=== PATIENT | male | born 1945 | race Caucasian/White ===

== ENCOUNTER 2016-04-29 11:02 | Emergency (ER) | payer MEDICARE, OTHER ==
--- NOTE | 2016-04-29 11:09 | ER Document Report ---
ED Medical Screen (RME) - General Stated Complaint: POSSIBLE URINARY TRACK INFECTION Notes: 70 yo male with uretheral stricture. c/o urinary retention. last urinated 8pm. + bladder distention
[2016-04-29] MEDS ORDERED: ONDANSETRON HCL INJ/PF 4 MG/2 ML SDV IV ONE (12:04)
[2016-04-29] MEDS ORDERED: HYDROMORPHONE HCL INJ/PF 2 MG/ML AMPULE IV ONE (12:04)
--- NOTE | 2016-04-29 12:05 | ER Document Report ---
ED GI/ - General Chief Complaint: Urinary Problem Stated Complaint: POSSIBLE URINARY TRACK INFECTION Time seen by provider: 12:04 Mode of Arrival: Ambulatory Information source: Patient Notes: This is a 70-year-old man with a history of chronic kidney disease, coronary artery disease, COPD, recurrent urethral strictures. Patient states that he last urinated last evening and has not been able to pass any urine. TRAVEL OUTSIDE OF THE [place] IN LAST 30 DAYS: No - HPI Patient complains to provider of: Abdominal pain, Urinary retention Onset: Yesterday Timing/Duration: Gradual Quality of pain: Fullness, Pressure Severity at maximum: Moderate Severity in ED: Moderate Context: denies: Bad food, Lifting, Out of the country travel, , Recent trauma, Other Location: Suprapubic Sexual history: Inactive Associated symptoms: denies: Chills, Hematuria, Nausea, Syncope Exacerbated by: Denies Relieved by: Denies Similar symptoms previously: Yes Recently seen / treated by doctor: Yes Past Medical History - General Information source: Patient - Social History Smoking Status: Never Smoker Cigarette use (# per day): No Chew tobacco use (# tins/day): No Frequency of alcohol use: Occasional Drug Abuse: None Lives with: Spouse/Significant other Family History: Reviewed & Not Pertinent Patient has suicidal ideation: No Patient has homicidal ideation: No - Past Medical History Cardiac Medical History: Reports: Hx Coronary Artery Disease, Hx Hypercholesterolemia Pulmonary Medical History: Reports: Hx COPD EENT Medical History: Reports: None Neurological Medical History: Reports: None Endocrine Medical History: Reports: None Renal/ Medical History: Reports: Hx Renal Insufficiency - Running kidney disease, Other - Urethral strictures in the past.. Denies: Hx Peritoneal Dialysis Malignancy Medical History: Reports None GI Medical History: Reports: None Musculoskeltal Medical History: Reports None Skin Medical History: Reports None Psychiatric Medical History: Reports: None Traumatic Medical History: Reports: None Infectious Medical History: Reports: None Past Surgical History: Reports: Hx Genitourinary Surgery - Urethral stricture laser and dilatation in the past Review of Systems - Review of Systems Constitutional: denies: Chills, Fever EENT: No symptoms reported Cardiovascular: No symptoms reported Respiratory: No symptoms reported Gastrointestinal: No symptoms reported Genitourinary: See HPI Male Genitourinary: No symptoms reported Musculoskeletal: No symptoms reported Skin: No symptoms reported Hematologic/Lymphatic: No symptoms reported Neurological/Psychological: No symptoms reported Physical Exam - Vital signs Vitals: Temp Pulse Resp BP Pulse Ox 97.7 F 72 18 164/94 H 98 04/29/16 11:08 04/29/16 11:08 04/29/16 11:08 04/29/16 11:08 04/29/16 11:08 Notes: Physical exam: GENERAL: 70-year-old man, alert and oriented 3, no acute distress HEAD: Atraumatic, normocephalic. EYES: Pupils equal round and reactive to light, extraocular movements intact, sclera anicteric, conjunctiva are normal. ENT: Moist mucous membranes. NECK: Normal range of motion, supple LUNGS: Breath sounds clear to auscultation bilaterally and equal. No wheezes rales or rhonchi. HEART: Regular rate and rhythm without murmurs, rubs or gallops. ABDOMEN: Soft, nontender, normoactive bowel sounds. No guarding, no rebound. No masses appreciated. EXTREMITIES: Normal range of motion, no pitting or edema. No clubbing or cyanosis. NEUROLOGICAL: Cranial nerves II through XII grossly intact. Normal speech, moving all extremities. PSYCH: Normal mood, normal affect. SKIN: Warm, Dry, normal turgor, no rashes or lesions noted. Course - Re-evaluation Re-evalutation: 04/29/16 16:40 A Alvarez was placed by the tech successfully. Urine looks good and sent for study. Patient will be discharged with a leg bag. 04/29/16 19:50 - Vital Signs Vital signs: Temp Pulse Resp BP Pulse Ox 98.1 F 67 18 152/91 H 93 04/29/16 17:02 04/29/16 17:02 04/29/16 11:08 04/29/16 17:02 04/29/16 17:02 - Laboratory Result Diagrams: 04/29/16 12:25 04/29/16 12:25 Laboratory results interpreted by me: 04/29/16 04/29/16 04/29/16 12:25 12:25 14:00 RBC 5.64 H MCH 26.1 L RDW 16.8 H Lymphocytes % 11.3 L Carbon Dioxide 32 H BUN 30 H Creatinine 1.32 H Est GFR (Non-Af Amer) 53 L AST 75 H Urine Blood SMALL H Discharge - Discharge Clinical Impression: acute obstructive uropathy, Pre hypertension Condition: Stable Disposition: HOME, SELF-CARE Additional Instructions: Recommendations: Follow-up with urologist as planned on Wednesday in [place]. Any copy of today's labs with you when you go to that appointment Before you leave [facility], return to the emergency room if you have any problems: Pain, fever, any concerns he getting worse. Prescriptions: Hydromorphone HCl [Dilaudid 2 Mg Tablet] 2 mg PO Q6H PRN #20 tablet PRN Reason: for pain Forms: Elevated Blood Pressure
[2016-04-29] MEDS ORDERED: LIDOCAINE 2% URO-JET 5 ML KIT MM ONE (12:29)
[2016-04-29 12:52] LABS: ABSOLUTE EOSINOPHILS # (AUTO) 0.1 10^3/uL (0.0-0.6); ABSOLUTE LYMPHOCYTES (AUTO) 0.5 10^3/uL (0.5-4.7); ABSOLUTE MONOCYTES (AUTO) 0.6 10^3/uL (0.1-1.4); ABSOLUTE NEUT (AUTO) 3.4 10^3/uL (1.7-8.2); BASOPHILS % (AUTO) 0.7 % (0-2); EOSINOPHILS % (AUTO) 1.9 % (0-6); HEMATOCRIT 45.5 % (37.9-51.0); HEMOGLOBIN 14.7 g/dL (13.5-17.0); HGB HCT DIFFERENCE -1.4; LYMPHOCYTES % (AUTO) 11.3 % (13-45); MEAN CORPUSCULAR HEMOGLOBIN 26.1 pg (27.0-33.4); MEAN CORPUSCULAR HGB CONC 32.4 g/dL (32.0-36.0); MEAN CORPUSCULAR VOLUME 81 fl (80-97); MONOCYTES % (AUTO) 12.9 % (3-13); RED BLOOD COUNT 5.64 10^6/uL (4.35-5.55); RED CELL DISTRIBUTION WIDTH 16.8 % (11.5-14.0); SEGMENTED NEUTROPHILS % (AUTO) 73.2 % (42-78); WHITE BLOOD COUNT 4.6 10^3/uL (4.0-10.5)
[2016-04-29 13:00] LABS: ALANINE AMINOTRANSFERASE 40 U/L (21-72); ALBUMIN 4.4 g/dL (3.5-5.0); ALKALINE PHOSPHATASE 83 U/L (38-126); ANION GAP 10 (5-19); ASPARTATE AMINO TRANSFERASE 75 U/L (17-59); BLOOD UREA NITROGEN 30 mg/dL (7-20); CALCIUM 9.8 mg/dL (8.4-10.2); CARBON DIOXIDE 32 mmol/L (22-30); CHLORIDE 102 mmol/L (98-107); CREATININE RESULT 1.32 mg/dL (0.52-1.25); GLUCOSE 95 mg/dL (75-110)
[2016-04-29 14:27] LABS: APPEARANCE,URINE CLEAR; BILIRUBIN,URINE NEGATIVE (NEGATIVE); GLUCOSE, URINE NEGATIVE (NEGATIVE); KETONES,URINE NEGATIVE (NEGATIVE); LEUKOCYTE ESTERASE,URINE NEGATIVE (NEGATIVE); NITRITE,URINE NEGATIVE (NEGATIVE); PROTEIN,URINE NEGATIVE (NEGATIVE); URINE SPECIFIC GRAVITY 1.017; UROBILINOGEN,URINE NEGATIVE mg/dL (<2.0)
[2016-04-29 17:03] VITALS: BP 152/91
== END 2016-04-29 17:03 | disposition home or self-care (01) ==
LOC: ER 11:02
DX: N13.9 Obstructive and reflux uropathy, unspecified (principal); R03.0 Elevated blood-pressure reading, without diagnosis of hypertension; N18.9 Chronic kidney disease, unspecified; I25.10 Atherosclerotic heart disease of native coronary artery without angina pectoris; J44.9 Chronic obstructive pulmonary disease, unspecified; R39.198 Other difficulties with micturition
CPT/HCPCS: 99283; 51702; 96374; 96375; 36415; 87086; 85025; 80053; 81001; J1170; J2405; A9270; J3490

== ENCOUNTER 2017-02-10 14:35 | Emergency (ER) | payer MEDICARE, OTHER ==
[2017-02-10] MEDS ORDERED: HYDROCODONE/ACETAMINOPHEN 5-325 MG TABLET PO ONE (15:15)
--- NOTE | 2017-02-10 15:57 | RADIOLOGY REPORT (SQ) ---
EXAM DESCRIPTION: HIP RIGHT AP/LATERAL COMPLETED DATE/TIME: 02/10/2017 3:45 pm REASON FOR STUDY: pain COMPARISON: None. NUMBER OF VIEWS: Two views. TECHNIQUE: AP pelvis and additional frog-leg view of the right hip. LIMITATIONS: Artifact from drawstrings on the patient's sweat pants on the 1st film. FINDINGS: MINERALIZATION: Normal. RIGHT HIP: Right hip replacement. No fracture or dislocation. No worrisome bone lesions. LEFT HIP: No fracture or dislocation. No worrisome bone lesions. PUBIS AND ISCHIUM: No fracture. PELVIS: No fracture. SACRUM: No fracture or dislocation. No worrisome bone lesions. LOWER LUMBAR SPINE: Lower lumbar facet arthropathy at L4-5. SOFT TISSUES: Faintly radiopaque stent along the male urethra OTHER: No other significant finding. IMPRESSION: Right hip replacement in good alignment. No malalignment of the right hip prosthesis or fracture along the right hemipelvis. TECHNICAL DOCUMENTATION: JOB ID: [id number] [employer]- All Rights Reserved
--- NOTE | 2017-02-10 16:09 | ER Document Report ---
ED Fall - General Chief Complaint: Fall Stated Complaint: FALL/RIGHT SIDE HIP PAIN Time Seen by Provider: 02/10/17 15:13 Mode of Arrival: Ambulatory Information source: Patient Notes: Patient states that he fell yesterday and landed on his right hip. He states that he has persistent pain that is gotten worse today. It is worse with movement and better with rest. It does radiate down his right leg. He states it is a aching sharp pain. It is constant. It is moderate. Patient denies any other injuries in the fall. He states that he fell because his hip "gave out". He states he fell into a stone coffee table. He states he has had a hip replacement on the right previously. TRAVEL OUTSIDE OF THE [place] IN LAST 30 DAYS: No - Related data Allergies/Adverse Reactions: No Known Allergies Allergy (Verified 02/10/17 14:39) Past Medical History - Social History Smoking Status: Former Smoker Chew tobacco use (# tins/day): No Frequency of alcohol use: Occasional Drug Abuse: None Family History: Reviewed & Not Pertinent Patient has suicidal ideation: No Patient has homicidal ideation: No - Past Medical History Cardiac Medical History: Reports: Hx Congestive Heart Failure, Hx Coronary Artery Disease, Hx Hypercholesterolemia Pulmonary Medical History: Reports: Hx COPD Renal/ Medical History: Reports: Hx Renal Insufficiency - Running kidney disease. Denies: Hx Peritoneal Dialysis Past Surgical History: Reports: Hx Genitourinary Surgery - Urethral stricture laser and dilatation in the past, Hx Orthopedic Surgery - rt hip Review of Systems - Review of Systems Constitutional: denies: Chills, Fever Cardiovascular: denies: Chest pain, Palpitations Respiratory: denies: Cough, Short of breath Gastrointestinal: denies: Diarrhea, Vomiting -: Yes All other systems reviewed and negative Physical Exam - Vital signs Vitals: Temp Pulse Resp BP Pulse Ox 98.3 F 68 20 150/85 H 93 02/10/17 14:39 02/10/17 14:39 02/10/17 14:39 02/10/17 14:39 02/10/17 14:39 Interpretation: Normal - General General appearance: Appears well, Alert - HEENT Head: Normocephalic, Atraumatic Eyes: Normal Pupils: PERRL - Respiratory Respiratory status: No respiratory distress Chest status: Nontender Breath sounds: Normal Chest palpation: Normal - Cardiovascular Rhythm: Regular Heart sounds: Normal auscultation Murmur: No - Abdominal Inspection: Normal Distension: No distension Bowel sounds: Normal Tenderness: Nontender Organomegaly: No organomegaly - Back Back: Normal, Nontender - Extremities General upper extremity: Normal inspection, Nontender, Normal color, Normal ROM , Normal temperature General lower extremity: Normal inspection, Tender - right hip diffusely, Normal color, Normal temperature. No: Normal ROM, Normal weight bearing, Chasity' s sign - Neurological Neuro grossly intact: Yes Cognition: Normal Orientation: AAOx4 [place] Coma Scale Eye Opening: Spontaneous [place] Coma Scale Verbal: Oriented [place] Coma Scale Motor: Obeys Commands [place] Coma Scale Total: 15 Speech: Normal Motor strength normal: LUE, RUE, LLE, RLE Sensory: Normal - Psychological Associated symptoms: Normal affect, Normal mood - Skin Skin Temperature: Warm Skin Moisture: Dry Skin Color: Normal Course - Vital Signs Vital signs: Temp Pulse Resp BP Pulse Ox 98.3 F 68 20 150/85 H 93 02/10/17 14:39 02/10/17 14:39 02/10/17 14:39 02/10/17 14:39 02/10/17 14:39 - Diagnostic Test Radiology reviewed: Image reviewed, Reports reviewed - X-ray shows no evidence of fracture or dislocation. Discharge - Discharge Clinical Impression: Contusion of right hip Qualifiers: Encounter type: initial encounter Qualified Code(s): S70.01XA - Contusion of right hip, initial encounter Condition: Stable Disposition: HOME, SELF-CARE Instructions: Contusion ([facility]) Additional Instructions: Please call your primary care physician as soon as possible to arrange follow-up Prescriptions: Hydrocodone/Acetaminophen [Kittrell 5-325 mg Tablet] 1 tab PO Q6 PRN #14 tablet PRN Reason: Forms: Elevated Blood Pressure
[2017-02-10 16:25] VITALS: BP 123/76
== END 2017-02-10 16:14 | disposition home or self-care (01) ==
LOC: ER 14:35
DX: S70.01XA Contusion of right hip, initial encounter (principal); M25.551 Pain in right hip; W19.XXXA Unspecified fall, initial encounter; Z96.641 Presence of right artificial hip joint; I25.10 Atherosclerotic heart disease of native coronary artery without angina pectoris; J44.9 Chronic obstructive pulmonary disease, unspecified; Z87.891 Personal history of nicotine dependence
CPT/HCPCS: 99283; 73502; A9270

== ENCOUNTER 2017-05-09 10:42 | Inpatient (IN) | payer MEDICARE, OTHER ==
--- NOTE | 2017-05-09 10:56 | ER Document Report ---
ED Medical Screen (RME) - General Chief Complaint: Flu Symptoms Stated Complaint: FLU SYMPTOMS Time Seen by Provider: 05/09/17 10:54 Mode of Arrival: Ambulatory Information source: Patient TRAVEL OUTSIDE OF THE [place] IN LAST 30 DAYS: No - HPI Patient complains to provider of: cough Onset: Other - pt with flu symptoms for the past 10 days with cough, sob, fever , chills - Related Data Allergies/Adverse Reactions: No Known Allergies Allergy (Verified 02/10/17 14:39) Past Medical History - Past Medical History Cardiac Medical History: Reports: Hx Congestive Heart Failure, Hx Coronary Artery Disease, Hx Hypercholesterolemia Pulmonary Medical History: Reports: Hx COPD Renal/ Medical History: Reports: Hx Renal Insufficiency - Running kidney disease. Denies: Hx Peritoneal Dialysis Past Surgical History: Reports: Hx Genitourinary Surgery - Urethral stricture laser and dilatation in the past, Hx Orthopedic Surgery - rt hip Physical Exam - Vital signs Vitals: Temp Pulse Resp BP Pulse Ox 98.6 F 60 18 154/76 H 91 L 05/09/17 10:48 05/09/17 10:48 05/09/17 10:48 05/09/17 10:48 05/09/17 10:48 Course - Vital Signs Vital signs: Temp Pulse Resp BP Pulse Ox 98.6 F 60 18 154/76 H 91 L 05/09/17 10:48 05/09/17 10:48 05/09/17 10:48 05/09/17 10:48 05/09/17 10:48
[2017-05-09 11:41] LABS: ABSOLUTE EOSINOPHILS # (AUTO) 0.1 10^3/uL (0.0-0.6); ABSOLUTE LYMPHOCYTES (AUTO) 0.6 10^3/uL (0.5-4.7); ABSOLUTE MONOCYTES (AUTO) 0.5 10^3/uL (0.1-1.4); ABSOLUTE NEUT (AUTO) 3.6 10^3/uL (1.7-8.2); EOSINOPHILS % (AUTO) 1.5 % (0-6); HEMATOCRIT 48.2 % (37.9-51.0); HEMOGLOBIN 15.6 g/dL (13.5-17.0); LYMPHOCYTES % (AUTO) 13.3 % (13-45); MEAN CORPUSCULAR HEMOGLOBIN 27.8 pg (27.0-33.4); MEAN CORPUSCULAR HGB CONC 32.4 g/dL (32.0-36.0); MEAN CORPUSCULAR VOLUME 86 fl (80-97); PLATELET COUNT 190 10^3/uL (150-450); RED BLOOD COUNT 5.62 10^6/uL (4.35-5.55); RED CELL DISTRIBUTION WIDTH 15.1 % (11.5-14.0); SEGMENTED NEUTROPHILS % (AUTO) 74.2 % (42-78); TOTAL CELLS COUNTED % (AUTO) 100 %; WHITE BLOOD COUNT 4.8 10^3/uL (4.0-10.5)
--- NOTE | 2017-05-09 12:02 | RADIOLOGY REPORT (SQ) ---
EXAM DESCRIPTION: CHEST PA/LAT COMPLETED DATE/TIME: 05/09/2017 11:44 am REASON FOR STUDY: cough COMPARISON: None. EXAM PARAMETERS: NUMBER OF VIEWS: two views TECHNIQUE: Digital Frontal and Lateral radiographic views of the chest acquired. RADIATION DOSE: NA LIMITATIONS: none FINDINGS: LUNGS AND PLEURA: Probable chronic interstitial changes. No focal infiltrates, masses or pneumothorax. No pleural effusion. MEDIASTINUM AND HILAR STRUCTURES: No masses or contour abnormalities. HEART AND VASCULAR STRUCTURES: Heart upper limits of normal size. No evidence for failure. BONES: Mild wedge deformity of a thoracolumbar vertebra, age indeterminate. HARDWARE: Pacemaker. OTHER: No other significant finding. IMPRESSION: NO SIGNIFICANT RADIOGRAPHIC FINDING IN THE CHEST. MILD WEDGE DEFORMITY OF THE THORACOLU MBAR VERTEBRA, AGE INDETERMINATE. TECHNICAL DOCUMENTATION: JOB ID: [id number] [employer]- All Rights Reserved
[2017-05-09 12:03] LABS: ALANINE AMINOTRANSFERASE 21 U/L (21-72); ALBUMIN 4.4 g/dL (3.5-5.0); ALKALINE PHOSPHATASE 41 U/L (38-126); ASPARTATE AMINO TRANSFERASE 22 U/L (17-59); BILIRUBIN,DIRECT 0.2 mg/dL (0.0-0.4); BILIRUBIN,TOTAL 0.5 mg/dL (0.2-1.3); BLOOD UREA NITROGEN 22 mg/dL (7-20); CHLORIDE 93 mmol/L (98-107); GLUCOSE 113 mg/dL (75-110); TOTAL PROTEIN 6.9 g/dL (6.3-8.2)
[2017-05-09 12:07] LABS: ANION GAP 9 (5-19)
[2017-05-09 12:11] LABS: CARBON DIOXIDE 40 mmol/L (22-30)
--- NOTE | 2017-05-09 12:56 | ER Document Report ---
ED Respiratory Problem - General Chief Complaint: Flu Symptoms Stated Complaint: FLU SYMPTOMS Time Seen by Provider: 05/09/17 10:54 Mode of Arrival: Ambulatory Notes: Patient is here concerned about difficulty breathing. He says that he has been feeling short of breath for the past week or 2 since she developed an upper respiratory infection about 2 weeks ago. He has had a persistent cough for a couple of weeks, producing only a small amount of phlegm. His difficulty breathing is worsened by activity or when laying down. Patient is not aware of any fever. He does have COPD and has an inhaler at home but is not using it, for some unknown reason. He stopped smoking 20 years ago. Has a cardiac pacemaker and is having no chest pains. No peripheral edema. Patient is concerned about whether he should be able to travel to [place] on Wednesday, 2 days from now, as scheduled. TRAVEL OUTSIDE OF THE [place] IN LAST 30 DAYS: No - Related Data Allergies/Adverse Reactions: No Known Allergies Allergy (Verified 02/10/17 14:39) Past Medical History - General Information source: Patient - Social History Smoking Status: Former Smoker Chew tobacco use (# tins/day): No Frequency of alcohol use: Occasional Drug Abuse: None Family History: Reviewed & Not Pertinent Patient has suicidal ideation: No Patient has homicidal ideation: No - Past Medical History Cardiac Medical History: Reports: Hx Congestive Heart Failure, Hx Coronary Artery Disease, Hx Heart Attack, Hx Hypercholesterolemia, Other - Coronary stents Pulmonary Medical History: Reports: Hx COPD Renal/ Medical History: Reports: Hx Renal Insufficiency - Running kidney disease GI Medical History: Reports: Hx Gastroesophageal Reflux Disease Past Surgical History: Reports: Hx Genitourinary Surgery - Urethral stricture laser and dilatation in the past, Hx Orthopedic Surgery - rt hip Review of Systems - Review of Systems Notes: REVIEW OF SYSTEMS: CONSTITUTIONAL : Denies fever. EENT: Denies eye, ear, nose or mouth or throat pain or other symptoms. CARDIOVASCULAR: Denies chest pain. No edema of the lower extremities. RESPIRATORY: See HPI. GASTROINTESTINAL: Denies abdominal pain or nausea, vomiting, or diarrhea. GENITOURINARY: Denies difficulty or painful urinating, urinary frequency, blood in urine. MUSCULOSKELETAL: Denies back or neck pain. Denies joint pain or swelling. SKIN: Denies rash or skin lesions. NEUROLOGICAL: Denies LOC or altered mental status. Denies headache. Denies sensory loss or motor deficits. ALL OTHER SYSTEMS REVIEWED AND NEGATIVE. Physical Exam - Vital signs Vitals: Temp Pulse Resp BP Pulse Ox 98.6 F 60 18 154/76 H 91 L 05/09/17 10:48 05/09/17 10:48 05/09/17 10:48 05/09/17 10:48 05/09/17 10:48 Interpretation: Other - O2 sat 91% in triage on room air. - Notes Notes: PHYSICAL EXAMINATION: GENERAL: Well-appearing, in no acute distress. Except for an O2 sat of 91% on room air, triage vital signs are all normal. HEAD: Atraumatic, normocephalic. EYES: Pupils equal round and reactive to light, extraocular movements intact. ENT: oropharynx clear without exudates. Moist mucous membranes. NECK: Normal range of motion, supple. LUNGS: Breath sounds clear except for a rare scattered wheeze. HEART: Regular rate and rhythm without murmurs. ABDOMEN: Soft, nontender. No guarding or rebound. No masses. BACK: No tenderness throughout entire back. EXTREMITIES: Normal range of motion without pain. No edema present. NEUROLOGICAL: Normal speech, normal gait. Normal sensory, motor, and reflex exams. Awake, alert, and oriented x3. Cranial nerves normal. PSYCH: Normal mood, normal affect. SKIN: Warm, dry, no rashes. Course - Re-evaluation Re-evalutation: 05/09/17 13:56 Lab studies found patient to have a venous PCO2 of 79.9. Chest x-ray shows no acute processes. CT scan of the patient's chest showed no evidence of pulmonary emboli. CT scan did show a perhaps mass in the left kidney that needs further workup with CT scans with oral and IV contrast and I have informed the patient of this and provided him with a copy of his CT scan results so that he will know what needs to be followed up. Patient will be admitted for COPD exacerbation, hypoxia, and hypercarbia. BiPAP has been ordered. - Vital Signs Vital signs: Temp Pulse Resp BP Pulse Ox 98.6 F 60 20 112/76 91 L 05/09/17 10:48 05/09/17 10:48 05/09/17 19:00 05/09/17 18:27 05/09/17 19:00 - Laboratory Result Diagrams: 05/09/17 11:20 05/09/17 11:20 Laboratory results interpreted by me: 05/09/17 05/09/17 05/09/17 11:20 11:20 11:20 RBC 5.62 H RDW 15.1 H VBG pCO2 VBG HCO3 Chloride 93 L Carbon Dioxide 40 H* BUN 22 H Est GFR (Non-Af Amer) 58 L Glucose 113 H NT-Pro-B Natriuret Pep 2630 H 05/09/17 12:56 RBC RDW VBG pCO2 79.9 H* VBG HCO3 41.0 H Chloride Carbon Dioxide BUN Est GFR (Non-Af Amer) Glucose NT-Pro-B Natriuret Pep - Diagnostic Test Radiology reviewed: Image reviewed Radiology results interpreted by me: 05/09/17 13:00 Chest x-ray shows no acute process. Pacemaker in the right lung field. Critical Care Note - Critical Care Note Total time excluding time spent on procedures (mins): 35 Discharge - Discharge Clinical Impression: COPD (chronic obstructive pulmonary disease), Hypoxia, Hypercarbia Condition: Stable Disposition: ADMITTED INPATIENT Admitting Provider: Hospitalist Unit Admitted: IMCU
[2017-05-09] MEDS ORDERED: IPRATROPIUM/ALBUTEROL 0.5-2.5 MG/3 ML AMPUL NEB ONE (13:01)
[2017-05-09 13:08] LABS: VENOUS BLOOD PH 7.33 (7.30-7.42)
[2017-05-09 13:12] LABS: VENOUS BLOOD PCO2 79.9 mmHg (35-63)
--- NOTE | 2017-05-09 13:29 | RADIOLOGY REPORT (SQ) ---
EXAM DESCRIPTION: CTA CHEST COMPLETED DATE/TIME: 05/09/2017 1:16 pm REASON FOR STUDY: Shortness of breath COMPARISON: Chest x-ray dated 05/09/2017. TECHNIQUE: CT scan of the chest performed using helical scanning technique with dynamic intravenous contrast injection. Images reviewed with lung, soft tissue and bone windows. Reconstructed coronal and sagittal MPR images reviewed. Additional 3 dimensional post-processing performed to develop Maximal Intensity Projection images (RI P). All images stored on PACS. All CT scanners at this facility use dose modulation, iterative reconstruction, and/or weight based d osing when appropriate to reduce radiation dose to as low as reasonably achievable (ALARA). [facility]: Dose Right [facility]: CareDose [facility]: Dose Right [facility]: Teradose 4D [facility]: Vendor Registry CONTRAST TYPE AND DOSE: contrast/concentration: Isovue 370.00 mg/ml; Total Contrast Delivered: 82.0 ml; Total Saline Delivered: 97.0 ml Contrast bolus optimized for the pulmonary arteries. Not diagnostic for the aorta. RENAL FUNCTION: BUN 22 creatinine 1.23. RADIATION DOSE: CT Rad equipment meets quality standard of care and radiation dose reduction techniq ues were employed. CTDIvol: 29.8 - 32.9 mGy. DLP: 1256 mGy-cm. . LIMITATIONS: None. FINDINGS: LUNGS AND PLEURA: No masses, infiltrates, pneumothorax. No pleural effusions, calcificati ons. AORTA AND GREAT VESSELS: No aneurysm. Contrast bolus not optimized for the aorta. HEART: No pericardial effusion. No significant coronary artery calcifications. PULMONARY ARTERIES: No emboli visualized in the main pulmonary arteries or the segmental branches. HILAR AND MEDIASTINAL STRUCTURES: No identified masses or abnormal nodes. HARDWARE: None in the chest. UPPER ABDOMEN: Possible enhancing solid mass in the left kidney, measuring 4 cm, incompletely visuali zed. Limited exam. THYROID AND OTHER SOFT TISSUES: No masses. No adenopathy. BONES: Chronic changes in the spine. Wedge deformity of the superior endplate of T12 which appears b e old. 3D MIPS: Confirm above findings. OTHER: No other significant finding. IMPRESSION: 1. NORMAL CTA OF THE CHEST. NO PULMONARY EMBOLI. 2. POSSIBLE ENHANCING SOLID MASS IN THE LEFT KIDNEY, INCOMPLETELY VISUALIZED. RECOMMEND FOLLOWUP CT OF THE ABDOMEN AND PELVIS WITH AND WITHOUT CONTRAST WITH ATTENTION TO THE KIDNEYS. COMMENT: Quality ID # [id number]: Final reports with documentation of one or more dose reduction techniques (e.g., Automated exposure control, adjustment of the mA and/or kV according to patient size, use of iterative reconstruction technique) TECHNICAL DOCUMENTATION: JOB ID: [id number] [employer]- All Rights Reserved
[2017-05-09] MEDS ORDERED: ALBUTEROL SULFATE 0.083% NEB 2.5 MG/3 ML AMPUL NEB PRN (14:45)
[2017-05-09] MEDS ORDERED: ONDANSETRON 4 MG TAB.RAPDIS PO PRN (14:45)
[2017-05-09 15:33] LABS: ARTERIAL BLOOD BASE EXCESS 8.4 mmol/L; ARTERIAL BLOOD FIO2 30%; ARTERIAL BLOOD H2CO3 2.28 mmol/L (1.05-1.35); ARTERIAL BLOOD O2 SATURATION 95.1 % (94-98); ARTERIAL BLOOD PH 7.32 (7.35-7.45); ARTERIAL BLOOD PO2 84.3 mmHg (80-100); ARTERIAL BLOOD TOTAL CO2 40.3 mmol/L (23-27)
[2017-05-09 15:35] LABS: ARTERIAL BLOOD PCO2 75.6 mmHg (35-45)
[2017-05-09] MEDS ORDERED: NITROGLYCERIN 0.4 MG/TAB 25 TAB/BOTTLE SL PRN (16:50)
[2017-05-09 17:42] LABS: VENOUS BLOOD BASE EXCESS 10.6 mmol/L; VENOUS BLOOD HCO3 41.8 mmol/L (20-32); VENOUS BLOOD PH 7.29 (7.30-7.42)
[2017-05-09 17:45] LABS: VENOUS BLOOD PCO2 89.3 mmHg (35-63)
[2017-05-09] MEDS ORDERED: DOCUSATE SODIUM 100 MG CAPSULE PO SCH (18:00)
[2017-05-09] MEDS: METHYLPREDNISOLONE INJ 40 MG/1 ML SDV IV SCH (18:03)
[2017-05-09] MEDS: DOCUSATE SODIUM 100 MG CAPSULE PO SCH (18:04)
[2017-05-09] MEDS: APIXABAN 5 MG TABLET PO SCH (18:23)
[2017-05-09] MEDS: ACETAMINOPHEN 325 MG TABLET PO PRN (19:40)
--- NOTE | 2017-05-09 20:09 | HISTORY AND PHYSICAL E ---
History and Physical NAME: ALEX MALLORY : 1945 AGE: 71Y ADMITTED: 05/09/2017 ROOM: ED17 CODE STATUS: DO NOT RESUSCITATE/DO NOT INTUBATE. PRIMARY CARE PROVIDER: In [place]. 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 TANK CAR CLEANER: In [place]. CHIEF COMPLAINT: Shortness of breath x2 weeks. HISTORY OF PRESENT ILLNESS: The patient is a 71-year-old male with a past medical history of coronary artery disease and chronic obstructive pulmonary disease. The patient presented to the Emergency Department with a chief complaint of significant shortness of breath. According to the patient, he does have chronic dyspnea with activity. However, his symptoms have been progressively worse over the past 2 weeks with wheezing. The patient denies any chest pain. No heart palpitations or diaphoresis. The patient has been producing significant amount of sputum as well as having a runny nose. The patient denies any fevers but does admit to some chills and has had a productive cough. The patient stated that he felt that he also had a postnasal drip which was aggravating his symptoms. Upon presentation to the emergency department, the patient was found to be significantly hypercapnic with a pCO2 in the 70s but the patient was awake and alert, completely oriented, and appropriate. Additionally, the patient was found to be hypoxic. The patient was placed on the BiPAP by ED staff, was given a nebulizer and became more comfortable. However, the patient was referred to the hospitalist for admission and management due to hypercapnia. the patient was referred to the hospitalist for admission and management. PAST MEDICAL HISTORY: Remarkable for: 1. Coronary artery disease. 2. Chronic anticoagulation which is believed to be due to atrial fibrillation. 3. Chronic obstructive pulmonary disease. 4. Hypertension. 5. Hyperlipidemia. 6. Congestive heart failure, unable to further specify. 7. Myocardial infarction x3. 8. Chronic kidney disease, uncertain of stage. 9. Gastroesophageal reflux disease. PAST SURGICAL HISTORY: Remarkable for: 1. Coronary stent placement. 2. Urethral stricture surgery as well as dilation. 3. Right hip surgery. ALLERGIES: No known drug allergies. HOME MEDICATIONS: Include: 1. Ventolin HFA 2 puffs ventilation q. 6 hours p.r.n. 2. Eliquis 5 mg p.o. b.i.d. 3. Aspirin 325 mg p.o. daily. 4. Klonopin 1 mg p.o. q. hour of sleep. 5. Colace 100 mg p.o. b.i.d. 6. Nexium 40 mg p.o. daily. 7. Zetia 10 mg p.o. daily. 8. Tricor 145 mg p.o. daily. 9. Folic acid 1 mg p.o. daily. 10. Imdur 30 mg p.o. daily. 11. Lopressor 25 mg p.o. b.i.d. 12. Nitrostat 0.4 mg sublingually q. 5 minutes p.r.n. 13. Restoril 30 mg p.o. q. hour of sleep. SOCIAL HISTORY: The patient lives most of the time in [place]. However, he stays some in the winter with his girlfriend, Magdalena Still who may be reached at [phone]. He has designated her as a contact agent. Declines discussing surrogate decision maker with his children at this time. The patient does have a history of tobacco use. The patient smoked 2 packs of cigarettes a day up until 1998. The patient does admit to daily alcohol use. He drinks about 2 drinks in the afternoon every day. Denies any history of DTs. No history of illicit drug use. The patient is retired. No history of tobacco, alcohol, or illicit drug use. FAMILY MEDICAL HISTORY: The patient's parents are , uncertain etiology. The patient does have children who are believed to be healthy. Denies any family history of lung cancer. REVIEW OF SYSTEMS: CONSTITUTIONAL: The patient denies any fevers, dizziness, weakness, loss of appetite. Does admit to chills. SKIN: The patient denies any diaphoresis, rashes, bruising, itching. HEENT: Denies any vision changes, hearing loss, sore throat, but does admit to nasal drainage. CARDIOVASCULAR: The patient denies any chest pain, heart palpitations or orthopnea. RESPIRATORY: The patient denies any hemoptysis but does admit to sputum production, strong cough, wheezing. ABDOMEN: The patient denies any nausea, vomiting, diarrhea, hematemesis, melena, hematochezia. GENITOURINARY: The patient denies any hematuria, pyuria, dysuria. MUSCULOSKELETAL: The patient does have chronic hip pain, nothing acute. NEUROLOGICAL: No seizures, tremors, loss of consciousness. HEMATOLOGICAL: Denies any charbel bleeding, easy bruising. ENDOCRINE: Denies any recent weight changes. PSYCHIATRIC: Denies any suicidal, homicidal ideation. PHYSICAL EXAMINATION: GENERAL: The patient is a well-developed, well-nourished, 71-year-old male who is awake, alert, and oriented to person, place, time, situation. He is verbal, conversational, does not appear to be in any acute distress. VITAL SIGNS: As follows: Temperature is 98.6, pulse 60, respirations 17, blood pressure 125/81, oxygen saturation is 93% on 30% FiO2 on BiPAP. SKIN: Warm and dry. No rash. He is not diaphoretic. HEENT: Pupils equal, round, reactive to light and accommodation. Conjunctiva is pink. Sclerae is nonicteric. NECK: There is no JVD. No palpable lymphadenopathy or thyromegaly. CARDIOVASCULAR: Heart is paced, pacemaker in situ. No rub. CHEST: The patient is quite diminished throughout to auscultation with scattered wheezes noted in upper lung cancino, symmetrical, not currently labored. ABDOMEN: Soft, nontender, nondistended. Bowel sounds are present. No palpable organomegaly. BACK: No CVA tenderness, sacral edema. EXTREMITIES: No clubbing, cyanosis, edema, or peripheral signs of embolization. Pedal pulses +1 noted bilaterally. All 4 extremities are warm appropriately. PSYCHIATRIC: Appropriate affect. Pleasant mood. DIAGNOSTICS: Lab values are as follows: Hematology obtained on 05/09/2017; WBCs are 4.8; hemoglobin is 15.6; hematocrit is 48.2; platelet count is 190,000. Venous blood gas obtained on 05/09/2017: A pH of 7.33, pCO2 of 79.9, bicarb is 41, obtained on 30% FiO2. Chemistry obtained on 05/09/2017: Sodium is 142, potassium 5.0, chloride is 93, carbon dioxide 40, BUN 22, creatinine is 1.23, glucose 113, calcium is 10, bilirubin 0.5, AST 22, ALT is 21, alk phos 41. Troponin is 0.0 to 2. BNP is 2630. Total protein is 2.9, albumin 4.4. EKG obtained on 05/09/2017 revealed atrial-paced rhythm. Chest x-ray obtained on 05/09/2017 reveals no significant radiographic finding in the chest, mild wedge deformity of the thoracolumbar vertebrae. Chest CTA obtained on 05/09/[address] of the chest and pulmonary emboli with possible enhanced and solid mass of the left kidney, incompletely visualized. IMPRESSION AND PLAN: 1. Acute most likely on chronic hypoxemic and hypercapnic respiratory failure. The patient will start on BiPAP of 10/5. Will increase this to 12/6, repeat blood gas in 1 hour, and make adjustments accordingly. The patient's mental status is at baseline and he is hemodynamically stable. Do feel this is a chronic illness for him. Will follow. 2. Chronic obstructive pulmonary disease exacerbation. Do hear some wheezing, therefore will go ahead and add steroids, nebulizers; will use these sparingly given the patient's underlying atrial issues; and will follow. 3. Coronary artery disease. Given the patient's worsening of symptoms, especially his increased activity intolerance, will obtain echocardiogram. The patient denies any other cardiac symptoms. Will resume the patient's home blood pressure medications. The patient does have a history of stent placement. Will resume his antiplatelet therapy once reconcilable. 4. Chronic anticoagulation. The patient is uncertain of the exact history but it sounds as though he has had a history of atrial fibrillation. The patient has no evidence of overt bleeding is acceptable. Will continue his Eliquis. 5. Hypertension. Blood pressures are slightly elevated. Once again, will continue the patient's home medications. 6. Chronic kidney disease. The patient is uncertain of the stage. The patient's creatinine is in acceptable range at this time. DISPOSITION: The patient is a DO NOT RESUSCITATE/DO NOT INTUBATE. As the patient has expressed the desire for a natural . He does not want intubation or CPR. This was discussed in layman's terms. The patient was familiar with the verbiage and therefore, felt that this had been discussed prior as well. Will admit the patient to inpatient IMCU, as the patient's expected length of stay should surpass 2 midnights. TIME SPENT: On this admission including assessment, plan, physical examination, patient education, review of previous records is 60 minutes. DICTATING PHYSICIAN: DIONISIO PIPER NP [id number] [address] [facility]#: [id number] ID: [id number] JOB#: [id number] ACCT: [id number] cc:DIONISIO PIPER NP > SANA
--- NOTE | 2017-05-09 20:42 | EKG REPORT ---
SEVERITY:- ABNORMAL ECG - ATRIAL-PACED COMPLEXES LEFT BUNDLE BRANCH BLOCK WITH PRIMARY T WAVE CHANGES. CONSIDER ISCHEMIA : Confirmed by: Kris Medina 09-May-2017 20:42:07
[2017-05-09] MEDS ORDERED: CLONAZEPAM 1 MG TABLET PO SCH (22:00)
[2017-05-09] MEDS ORDERED: HEPARIN SOD (PORCINE) 5,000 UNIT/ML 1 ML SYRINGE SUBCUT SCH (22:00)
[2017-05-09] MEDS ORDERED: TEMAZEPAM 15 MG CAPSULE PO SCH (22:00)
[2017-05-09] MEDS: METOPROLOL TARTRATE 25 MG TABLET PO SCH (22:49)
[2017-05-10] MEDS: METHYLPREDNISOLONE INJ 40 MG/1 ML SDV IV SCH ×3 (02:16→17:52)
[2017-05-10] MEDS: LANSOPRAZOLE 30 MG TAB.RAP.DR PO SCH (06:33)
[2017-05-10] MEDS: ACETAMINOPHEN 325 MG TABLET PO PRN (06:35)
[2017-05-10 06:38] LABS: VENOUS BLOOD BASE EXCESS 12.1 mmol/L; VENOUS BLOOD HCO3 43.8 mmol/L (20-32); VENOUS BLOOD PH 7.31 (7.30-7.42)
[2017-05-10 06:40] LABS: HEMATOCRIT 51.5 % (37.9-51.0); HEMOGLOBIN 16.4 g/dL (13.5-17.0); MEAN CORPUSCULAR HEMOGLOBIN 27.3 pg (27.0-33.4); MEAN CORPUSCULAR HGB CONC 31.9 g/dL (32.0-36.0); MEAN CORPUSCULAR VOLUME 86 fl (80-97); PLATELET COUNT 186 10^3/uL (150-450); WHITE BLOOD COUNT 4.8 10^3/uL (4.0-10.5)
[2017-05-10 06:41] LABS: VENOUS BLOOD PCO2 89.6 mmHg (35-63)
[2017-05-10 07:02] LABS: ANION GAP 9 (5-19); BLOOD UREA NITROGEN 23 mg/dL (7-20); CARBON DIOXIDE 38 mmol/L (22-30); CHLORIDE 94 mmol/L (98-107); GLUCOSE 136 mg/dL (75-110); POTASSIUM 5.3 mmol/L (3.6-5.0); SODIUM 140.8 mmol/L (137-145)
[2017-05-10] MEDS: LEVALBUTEROL HCL NEB 1.25 MG/3 ML AMPUL NEB PRN ×2 (09:20→20:50)
[2017-05-10] MEDS: ISOSORBIDE MONONITRATE 30 MG TAB.ER.24H PO SCH (09:30)
[2017-05-10] MEDS: FOLIC ACID 1 MG TABLET PO SCH (09:30)
[2017-05-10] MEDS: ASPIRIN 81 MG TABLET, CHEWABLE PO SCH (09:31)
[2017-05-10] MEDS: DOCUSATE SODIUM 100 MG CAPSULE PO SCH ×2 (09:32→17:52)
[2017-05-10] MEDS: METOPROLOL TARTRATE 25 MG TABLET PO SCH ×2 (09:33→22:00)
[2017-05-10] MEDS: APIXABAN 5 MG TABLET PO SCH ×2 (09:34→17:51)
[2017-05-10] MEDS ORDERED: FENOFIBRATE NANOCRYSTALLIZED 145 MG TABLET PO SCH (10:00)
[2017-05-10] MEDS ORDERED: (PENDING PHARMACY ID) (Esomeprazole Mag Trihydrate [Nexium] 40 MG) PO SCH (10:00)
[2017-05-10] MEDS ORDERED: EZETIMIBE 10 MG TABLET PO SCH (10:00)
--- NOTE | 2017-05-10 10:32 | PDOC PROGRESS REPORT ---
Subjective Progress Note for:: 05/10/17 Subjective:: Patient is a 71-year-old male who presents with 2 weeks of increasing shortness of breath, orthopnea and PND. He has never been diagnosed with underlying COPD or obstructive sleep apnea. Last night, he was treated on BiPAP and states that he got the best night of sleep in a long time. He also has underlying hypertension, chronic kidney disease, coronary artery disease and he uses Eliquis for anticoagulation, presumably for A. fib. Reason For Visit: COPD EXACERBATION Physical Exam Vital Signs: Temp Pulse Resp BP Pulse Ox 98.0 F 69 18 150/80 H 97 05/10/17 07:01 05/10/17 09:30 05/10/17 09:30 05/10/17 07:01 05/10/17 09:30 Intake & Output 05/09/17 05/10/17 05/11/17 06:59 06:59 06:59 Intake Total 240 Output Total 1100 Balance -860 Weight 109.4 kg Additional comments: The patient appears to be his stated age. He is obese. He is conversant. He answers all of my questions appropriately. He knows his medical problems. He knows who his doctors are. He knows today's date. He knows who the president is. He is clearly competent to make his own decisions. His facial appearance demonstrates an increased diameter of his neck to approximately 19-20 inches. His facial appearance is otherwise unremarkable. The patient has diminished breath sounds throughout without adventitious sounds. His cardiac exam at this time is regular without murmurs, gallops or rubs. The abdomen is obese but soft. Bowel sounds are present in the lower quadrants. The lower extremities demonstrate trace edema. The skin is otherwise warm, dry and intact without lesions or rashes. Results Laboratory Results: 05/10/17 06:19 05/10/17 06:19 05/09/17 05/09/17 05/10/17 15:05 17:05 06:19 WBC RBC Hgb Hct MCV MCH MCHC RDW Plt Count Carbonic Acid 2.28 H HCO3/H2CO3 Ratio 16:1 ABG pH 7.32 L ABG pCO2 75.6 H* ABG pO2 84.3 ABG HCO3 38.0 H ABG O2 Saturation 95.1 ABG Base Excess 8.4 VBG pH 7.29 L 7.31 VBG pCO2 89.3 H* 89.6 H* VBG HCO3 41.8 H 43.8 H VBG Base Excess 10.6 12.1 FiO2 30% Sodium Potassium Chloride Carbon Dioxide Anion Gap BUN Creatinine Est GFR ( Amer) Est GFR (Non-Af Amer) Glucose Calcium Magnesium 05/10/17 05/10/17 06:19 06:19 WBC 4.8 RBC 6.00 H Hgb 16.4 Hct 51.5 H MCV 86 MCH 27.3 MCHC 31.9 L RDW 15.0 H Plt Count 186 Carbonic Acid HCO3/H2CO3 Ratio ABG pH ABG pCO2 ABG pO2 ABG HCO3 ABG O2 Saturation ABG Base Excess VBG pH VBG pCO2 VBG HCO3 VBG Base Excess FiO2 Sodium 140.8 Potassium 5.3 H Chloride 94 L Carbon Dioxide 38 H Anion Gap 9 BUN 23 H Creatinine 1.17 Est GFR ( Amer) > 60 Est GFR (Non-Af Amer) > 60 Glucose 136 H Calcium 10.0 Magnesium 1.7 Impressions: Chest X-Ray 05/09/17 10:54 IMPRESSION: NO SIGNIFICANT RADIOGRAPHIC FINDING IN THE CHEST. MILD WEDGE DEFORMITY OF THE THORACOLUMBAR VERTEBRA, AGE INDETERMINATE. Chest/Abdomen CTA 05/09/17 12:36 IMPRESSION: 1. NORMAL CTA OF THE CHEST. NO PULMONARY EMBOLI. 2. POSSIBLE ENHANCING SOLID MASS IN THE LEFT KIDNEY, INCOMPLETELY VISUALIZED. RECOMMEND FOLLOWUP CT OF THE ABDOMEN AND PELVIS WITH AND WITHOUT CONTRAST WITH ATTENTION TO THE KIDNEYS. Assessment & Plan - Diagnosis (1) Acute on chronic respiratory failure with hypoxia and hypercapnia Is this a current diagnosis for this admission?: Yes (2) COPD with exacerbation Is this a current diagnosis for this admission?: Yes (3) Coronary artery disease Is this a current diagnosis for this admission?: Yes (4) Chronic anticoagulation Is this a current diagnosis for this admission?: Yes (5) Hypertension Is this a current diagnosis for this admission?: Yes (6) Chronic kidney disease Is this a current diagnosis for this admission?: Yes (7) Obstructive sleep apnea Is this a current diagnosis for this admission?: Yes (8) Hyperkalemia Is this a current diagnosis for this admission?: Yes (9) Polycythemia Is this a current diagnosis for this admission?: Yes (10) Renal mass Is this a current diagnosis for this admission?: Yes - Time Time Spent with patient: 25-34 minutes - Inpatient Certification Medical Necessity: Significant Comorbidiites Make Outpatient Treatment Too Risky , Need Close Monitoring Due to Risk of Patient Decompensation, Need For Continuous Telemetry Monitoring, Need for Nebulizer Therapy and Monitoring of Response - Plan Summary Plan Summary: The patient presents to the hospital with acute on chronic hypoxic and hypercarbic respiratory failure. I believe that this is due to components of COPD with exacerbation and underlying, untreated obstructive sleep apnea. Currently, the patient is receiving bronchodilators and intravenous corticosteroids. These will be continued for now. He is on his routine medications for coronary artery disease. We will continue his chronic anticoagulation which is Eliquis. His hypertension is under good control. The patient does have mild chronic kidney disease. Today he is hyperkalemic. His Potassium is 5.3. I will need to restrict the potassium in his diet. We did discuss whether or not the patient could have obstructive sleep apnea. Clearly , his symptoms are compatible with obstructive sleep apnea. I recommended that he see a receiving and processing supervisor after discharge who could order a sleep study. I will order PFTs at this time. Patient is also noted to have polycythemia. This indicates long-standing hypoxia. CT of the chest indicates a renal mass. I will try to find out from the patient if this is a known problem. If not, further testing is warranted.
[2017-05-10] MEDS: TRAMADOL HCL 50 MG TABLET PO PRN (18:38)
[2017-05-10] MEDS: FENOFIBRATE NANOCRYSTALLIZED 145 MG TABLET PO SCH (21:59)
[2017-05-10] MEDS: CLONAZEPAM 1 MG TABLET PO SCH (22:00)
[2017-05-10] MEDS: TEMAZEPAM 15 MG CAPSULE PO SCH (22:00)
[2017-05-11] MEDS: TRAMADOL HCL 50 MG TABLET PO PRN ×3 (00:38→20:11)
[2017-05-11] MEDS: METHYLPREDNISOLONE INJ 40 MG/1 ML SDV IV SCH ×2 (01:37→10:06)
[2017-05-11 05:00] LABS: HEMATOCRIT 45.1 % (37.9-51.0); HEMOGLOBIN 14.6 g/dL (13.5-17.0); MEAN CORPUSCULAR HEMOGLOBIN 27.5 pg (27.0-33.4); MEAN CORPUSCULAR HGB CONC 32.4 g/dL (32.0-36.0); MEAN CORPUSCULAR VOLUME 85 fl (80-97); PLATELET COUNT 207 10^3/uL (150-450); RED BLOOD COUNT 5.31 10^6/uL (4.35-5.55); RED CELL DISTRIBUTION WIDTH 14.8 % (11.5-14.0)
[2017-05-11 05:13] LABS: ANION GAP 10 (5-19); CALCIUM 9.8 mg/dL (8.4-10.2); CARBON DIOXIDE 34 mmol/L (22-30); CHLORIDE 94 mmol/L (98-107); GLUCOSE 126 mg/dL (75-110); POTASSIUM 5.1 mmol/L (3.6-5.0)
[2017-05-11] MEDS: LANSOPRAZOLE 30 MG TAB.RAP.DR PO SCH (05:17)
[2017-05-11 05:37] LABS: BLOOD UREA NITROGEN 49 mg/dL (7-20)
[2017-05-11 06:14] LABS: ABSOLUTE LYMPHOCYTES# (MANUAL) 0.5 10^3/uL (0.5-4.7); ABSOLUTE MONOCYTES # (MANUAL) 0.4 10^3/uL (0.1-1.4); ABSOLUTE NEUTROPHILS# (MANUAL) 8.1 10^3/uL (1.7-8.2); BASOPHILS % (MANUAL) 0 % (0-2); EOSINOPHILS % (MANUAL) 0 % (0-6); LYMPHOCYTES % (MANUAL) 6 % (13-45); MONOCYTES % (MANUAL) 4 % (3-13); SEGMENTED NEUTROPHILS % (MAN) 90 % (42-78); TOTAL CELLS COUNTED 100
[2017-05-11 06:23] LABS: ANISOCYTOSIS SLIGHT; HYPOCHROMASIA SLIGHT; PLATELET COMMENT ADEQUATE; POLYCHROMASIA SLIGHT; TOXIC GRANULATION SLIGHT; TOXIC VACUOLATION PRESENT
[2017-05-11] MEDS: FOLIC ACID 1 MG TABLET PO SCH (10:06)
[2017-05-11] MEDS: APIXABAN 5 MG TABLET PO SCH ×2 (10:07→18:02)
[2017-05-11] MEDS: ASPIRIN 81 MG TABLET, CHEWABLE PO SCH (10:07)
[2017-05-11] MEDS: DOCUSATE SODIUM 100 MG CAPSULE PO SCH ×2 (10:07→18:02)
[2017-05-11] MEDS: ISOSORBIDE MONONITRATE 30 MG TAB.ER.24H PO SCH (10:07)
[2017-05-11] MEDS: METOPROLOL TARTRATE 25 MG TABLET PO SCH ×2 (10:07→21:23)
[2017-05-11] MEDS: LEVALBUTEROL HCL NEB 1.25 MG/3 ML AMPUL NEB PRN ×2 (10:34→16:33)
--- NOTE | 2017-05-11 11:40 | PDOC PROGRESS REPORT ---
Subjective Progress Note for:: 05/11/17 Subjective:: Patient is a 71-year-old male who presents with 2 weeks of increasing shortness of breath, orthopnea and PND. He has never been diagnosed with underlying COPD or obstructive sleep apnea. Last night, he was treated on BiPAP and states that he got the best night of sleep in a long time. He also has underlying hypertension, chronic kidney disease, coronary artery disease and he uses Eliquis for anticoagulation, presumably for A. fib. The patient is feeling better. He did not sleep well last evening because his roommate has some dementia and has been acting confused and essentially his roommate interfered with his sleep. The patient has hip pain from chronic osteoarthritis. He took tramadol last night with good effect. We discussed his use of sleep agents. I told him that high doses of sleep medications are relatively contraindicated in untreated sleep apnea. I have cut his medications in half. He is in agreement with this. The patient's creatinine is elevated today. I believe that this is likely secondary to some mild hypotension that the patient had on admission in the setting of receiving IV contrast for his CT scan. I will hydrate the patient today. Reason For Visit: COPD EXACERBATION Physical Exam Vital Signs: Temp Pulse Resp BP Pulse Ox 98.6 F 60 18 134/73 H 96 05/11/17 07:32 05/11/17 10:48 05/11/17 10:48 05/11/17 07:32 05/11/17 10:48 Intake & Output 05/10/17 05/11/17 05/12/17 06:59 06:59 06:59 Intake Total 240 1058 500 Output Total 1100 375 Balance -860 1058 125 Weight 109.4 kg 111.2 kg Additional comments: The patient was sitting up at the edge of the bed on 3 L of oxygen this morning. When compared to admission he states that he is feeling much better. The patient's lungs remain clear to auscultation bilaterally. His cardiac exam is regular at this time. I do not hear any murmurs, gallops or rubs. The abdomen is obese but soft. Bowel sounds are present in the lower quadrants. He does not have guarding or rebound noted and there are no hernias or masses present. The patient has only trace pedal edema. The skin is clean, warm, dry and intact without lesions or rashes. Results Laboratory Results: 05/11/17 04:10 05/11/17 04:10 05/11/17 05/11/17 04:10 04:10 WBC 9.0 RBC 5.31 Hgb 14.6 Hct 45.1 MCV 85 MCH 27.5 MCHC 32.4 RDW 14.8 H Plt Count 207 Seg Neutrophils % Not Reportable Lymphocytes % Not Reportable Monocytes % Not Reportable Eosinophils % Not Reportable Basophils % Not Reportable Absolute Neutrophils Not Reportable Absolute Lymphocytes Not Reportable Absolute Monocytes Not Reportable Absolute Eosinophils Not Reportable Absolute Basophils Not Reportable Sodium 138.0 Potassium 5.1 H Chloride 94 L Carbon Dioxide 34 H Anion Gap 10 BUN 49 H D Creatinine 1.69 H Est GFR ( Amer) 48 L Est GFR (Non-Af Amer) 40 L Glucose 126 H Calcium 9.8 Magnesium 1.7 Impressions: Chest X-Ray 05/09/17 10:54 IMPRESSION: NO SIGNIFICANT RADIOGRAPHIC FINDING IN THE CHEST. MILD WEDGE DEFORMITY OF THE THORACOLUMBAR VERTEBRA, AGE INDETERMINATE. Chest/Abdomen CTA 05/09/17 12:36 IMPRESSION: 1. NORMAL CTA OF THE CHEST. NO PULMONARY EMBOLI. 2. POSSIBLE ENHANCING SOLID MASS IN THE LEFT KIDNEY, INCOMPLETELY VISUALIZED. RECOMMEND FOLLOWUP CT OF THE ABDOMEN AND PELVIS WITH AND WITHOUT CONTRAST WITH ATTENTION TO THE KIDNEYS. Assessment & Plan - Diagnosis (1) Acute on chronic respiratory failure with hypoxia and hypercapnia Is this a current diagnosis for this admission?: Yes (2) COPD with exacerbation Is this a current diagnosis for this admission?: Yes (3) Coronary artery disease Is this a current diagnosis for this admission?: Yes (4) Chronic anticoagulation Is this a current diagnosis for this admission?: Yes (5) Hypertension Is this a current diagnosis for this admission?: Yes (6) Chronic kidney disease Is this a current diagnosis for this admission?: Yes (7) Obstructive sleep apnea Is this a current diagnosis for this admission?: Yes (8) Hyperkalemia Is this a current diagnosis for this admission?: Yes (9) Polycythemia Is this a current diagnosis for this admission?: Yes (10) Renal mass Is this a current diagnosis for this admission?: Yes (11) Acute renal injury Is this a current diagnosis for this admission?: Yes - Time Time Spent with patient: 25-34 minutes - Inpatient Certification Medical Necessity: Significant Comorbidiites Make Outpatient Treatment Too Risky , Need Close Monitoring Due to Risk of Patient Decompensation, Need For IV Fluids - Plan Summary Plan Summary: 1. Continue supplemental oxygen. PFT testing has been ordered. 2. Continue bronchodilator therapy. Will change to oral prednisone in anticipation of discharge. 3. Continue medications for coronary artery disease. 4. Continue Eliquis. 5. Continue outpatient blood pressure medications. Blood pressure is now stable. 6. Avoid nephrotoxins. 7. The patient will make an appointment to discuss sleep testing with his doctor when he gets to [place] early May. I told him to call ahead for an appointment. 8. Patient is on a low potassium diet and potassium is improved today. 9. Polycythemia: Likely due to chronic hypoxemia. 10. Patient will have a renal mass evaluated in [place]. He has a urologist there. I am unable to give the patient any additional contrast at this time secondary to contrast-induced acute renal injury. 11. Patient received IV fluids today.
[2017-05-11] MEDS: PREDNISONE 20 MG TABLET PO SCH (18:02)
[2017-05-11] MEDS: NORMAL SALINE 1000 ML 1,000 ML IV PRN (18:35)
[2017-05-11] MEDS: FENOFIBRATE NANOCRYSTALLIZED 145 MG TABLET PO SCH (21:22)
[2017-05-11] MEDS: TEMAZEPAM 15 MG CAPSULE PO SCH (21:23)
[2017-05-11] MEDS: SENNOSIDES/DOCUSATE 8.6-50 MG 1 EACH TABLET PO SCH (21:23)
[2017-05-11] MEDS: EZETIMIBE 10 MG TABLET PO SCH (21:23)
[2017-05-11] MEDS: CLONAZEPAM 1 MG TABLET PO SCH (21:23)
[2017-05-12] MEDS: TRAMADOL HCL 50 MG TABLET PO PRN ×2 (04:07→14:26)
[2017-05-12] MEDS: NORMAL SALINE 1000 ML 1,000 ML IV PRN (06:40)
[2017-05-12] MEDS: LANSOPRAZOLE 30 MG TAB.RAP.DR PO SCH (06:40)
[2017-05-12 09:13] LABS: ANION GAP 8 (5-19); BLOOD UREA NITROGEN 47 mg/dL (7-20); CALCIUM 9.7 mg/dL (8.4-10.2); CARBON DIOXIDE 39 mmol/L (22-30); CHLORIDE 95 mmol/L (98-107); GLUCOSE 111 mg/dL (75-110); POTASSIUM 5.7 mmol/L (3.6-5.0); SODIUM 142.3 mmol/L (137-145)
[2017-05-12] MEDS: LEVALBUTEROL HCL NEB 1.25 MG/3 ML AMPUL NEB PRN (09:27)
[2017-05-12] MEDS: ASPIRIN 81 MG TABLET, CHEWABLE PO SCH (11:01)
[2017-05-12] MEDS: METOPROLOL TARTRATE 25 MG TABLET PO SCH ×2 (11:01→21:12)
[2017-05-12] MEDS: DOCUSATE SODIUM 100 MG CAPSULE PO SCH ×2 (11:02→18:01)
[2017-05-12] MEDS: FOLIC ACID 1 MG TABLET PO SCH (11:02)
[2017-05-12] MEDS: PREDNISONE 20 MG TABLET PO SCH (11:02)
[2017-05-12] MEDS: ISOSORBIDE MONONITRATE 30 MG TAB.ER.24H PO SCH (11:02)
[2017-05-12] MEDS: APIXABAN 5 MG TABLET PO SCH ×2 (11:03→18:01)
[2017-05-12] MEDS ORDERED: ALBUTEROL SULFATE HFA (90 MCG/PUFF) 200 PUFF/8.5 GM MDI IH PRN (11:22)
[2017-05-12] MEDS ORDERED: SODIUM POLYSTYRENE SULFONATE 15 GM/60 ML PO ONE (14:30)
--- NOTE | 2017-05-12 15:08 | PDOC PROGRESS REPORT ---
Subjective Progress Note for:: 05/12/17 Subjective:: Patient is a 71-year-old male who presents with 2 weeks of increasing shortness of breath, orthopnea and PND. He has never been diagnosed with underlying COPD or obstructive sleep apnea. Last night, he was treated on BiPAP and states that he got the best night of sleep in a long time. He also has underlying hypertension, chronic kidney disease, coronary artery disease and he uses Eliquis for anticoagulation, presumably for A. fib. The patient has been feeling better. When I checked on him this morning he was getting his echocardiogram. Yesterday, we discussed his use of narcotics and sedatives and he is in agreement that I cut back on his sleep agents. Once he is treated for SOCORRO this should eliminate his need for sleep agents, hopefully. The patient did develop acute on chronic renal failure which responded to hydration. However, he has persistent hyperkalemia. He will receive Kayexalate today. I have no etiology of the hyperkalemia and I have consulted Dr. Saldaña of nephrology. Reason For Visit: COPD EXACERBATION Physical Exam Vital Signs: Temp Pulse Resp BP Pulse Ox 98.8 F 61 18 103/52 L 97 05/12/17 13:11 05/12/17 13:11 05/12/17 13:11 05/12/17 13:11 05/12/17 13:11 Intake & Output 05/11/17 05/12/17 05/13/17 06:59 06:59 06:59 Intake Total 1058 3283 Output Total 2525 Balance 1058 758 Weight 111.2 kg 112.4 kg Additional comments: The patient was in good spirits today. His cognition and mentation are appropriate. His lungs remain clear both anteriorly and posteriorly. His cardiac exam is regular without murmurs, gallops or rubs. The abdomen is soft and flat. Bowel sounds are present. He does not have guarding or rebound noted and there are no hernias or masses present. The lower extremities are unremarkable. He does not have any significant pedal edema. The skin is clean , warm, dry and intact without lesions or rashes. Results Laboratory Results: 05/11/17 04:10 05/12/17 08:25 05/12/17 08:25 Sodium 142.3 Potassium 5.7 H Chloride 95 L Carbon Dioxide 39 H Anion Gap 8 BUN 47 H Creatinine 1.28 H Est GFR ( Amer) > 60 Est GFR (Non-Af Amer) 55 L Glucose 111 H Calcium 9.7 Impressions: Chest X-Ray 05/09/17 10:54 IMPRESSION: NO SIGNIFICANT RADIOGRAPHIC FINDING IN THE CHEST. MILD WEDGE DEFORMITY OF THE THORACOLUMBAR VERTEBRA, AGE INDETERMINATE. Chest/Abdomen CTA 05/09/17 12:36 IMPRESSION: 1. NORMAL CTA OF THE CHEST. NO PULMONARY EMBOLI. 2. POSSIBLE ENHANCING SOLID MASS IN THE LEFT KIDNEY, INCOMPLETELY VISUALIZED. RECOMMEND FOLLOWUP CT OF THE ABDOMEN AND PELVIS WITH AND WITHOUT CONTRAST WITH ATTENTION TO THE KIDNEYS. Assessment & Plan - Diagnosis (1) Acute on chronic respiratory failure with hypoxia and hypercapnia Is this a current diagnosis for this admission?: Yes (2) COPD with exacerbation Is this a current diagnosis for this admission?: Yes (3) Coronary artery disease Is this a current diagnosis for this admission?: Yes (4) Chronic anticoagulation Is this a current diagnosis for this admission?: Yes (5) Hypertension Is this a current diagnosis for this admission?: Yes (6) Chronic kidney disease Is this a current diagnosis for this admission?: Yes (7) Obstructive sleep apnea Is this a current diagnosis for this admission?: Yes (8) Hyperkalemia Is this a current diagnosis for this admission?: Yes (9) Polycythemia Is this a current diagnosis for this admission?: Yes (10) Renal mass Is this a current diagnosis for this admission?: Yes (11) Acute renal injury Is this a current diagnosis for this admission?: Yes (12) History of hyperkalemia Is this a current diagnosis for this admission?: Yes - Time Time Spent with patient: 25-34 minutes - Inpatient Certification Medical Necessity: Need For IV Fluids, Risk of Complication if Not Cared For in Hospital, Risk of Diagnosis Which Will Require Inpatient Eval/Care/Monitoring - Plan Summary Plan Summary: 1. The patient will remain on oxygen which we are trying to wean. He will remain on BiPAP at night for presumed obstructive sleep apnea. 2. The patient may have come in with COPD with exacerbation, but he did not have any wheezing. He will continue bronchodilators. Steroids will be weaned to off. 3. Coronary artery disease: Stable 4. Chronic anticoagulation: To be continued 5. Hypertension: Continue medical management 6. Chronic kidney disease with acute renal injury: Patient responded well to IV fluids. I will stop IV fluids today. 7. Obstructive sleep apnea, presumed: Patient will need an evaluation with a sleep study after discharge. 8. Hyperkalemia: I did take the patient on a low potassium diet. The patient' s potassium continues to rise. He is not on any offending medications. He does not have a metabolic acidosis. I have consulted nephrology. 9. Patient likely has polycythemia from long-standing hypoxemia. 10. Renal mass: This will be worked up after discharge. 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 He is following up the first week of May. At this point time I do not want to give the patient any contrast for further evaluation due to the acute on chronic kidney injury.
[2017-05-12] MEDS ORDERED: PREDNISONE 20 MG TABLET PO SCH (15:12)
--- NOTE | 2017-05-12 17:47 | Pulmonary Function Test ---
Pulmonary Function Test Date of Procedure:: 05/09/17 INDICATION:: Dyspnea Referring Provider: Dr. Lauren - Report Spirometry: FVC 2.35 L 53% postbronchodilator therapy 2.81 L 64% FEV1 1.52 L 44% postbronchodilator therapy 1.79 L 52% FEV1/FVC % 65 postbronchodilator therapy 64 predicted 79 FEF 25-75% 1.53 45% postbronchodilator therapy 1.42 42% Impression: Study demonstrates severe obstructive ventilatory defect with modest response to bronchodilator therapy. Restrictive ventilatory defect is also suggested but cannot be diagnosed on the basis of spirometry alone.If clinically indicated suggest complete pulmonary function testing.
[2017-05-12] MEDS: PREDNISONE 10 MG TABLET PO SCH (18:01)
[2017-05-12] MEDS: OXYCODONE HCL IR 5 MG TABLET PO PRN (18:02)
--- NOTE | 2017-05-12 18:41 | XCELERA REPORT ---
[address] [address] Transthoracic Echocardiogram Report Name: ALEX MALLORY Age: 71 yrs Gender: Male : 1945 Patient Status: Inpatient Patient Location: [address] [place] [address] Study Date: 05/12/2017 10:26 AM Height: 72 in Weight: 245 lb BSA: 2.3 m2 Procedure: A complete two-dimensional transthoracic echocardiogram was performed (2D, M-mode, spectral and color flow Doppler). The study was technically adequate with some images being suboptimal in quality. Reason For Study: Dyspnea, known CAD, worsening symptoms Ordering Physician: DIONISIO PIPER Performed By: Verna Streeter Interpretation Summary The left ventricular ejection fraction is normal. Doppler measurements suggest pseudonormalized left ventricular relaxation, which is associated with grade II/IV or mild to moderate diastolic dysfunction There is borderline concentric left ventricular hypertrophy. The left ventricle is grossly normal size. Wall motion cannot be accurately commented on, but no definite regional wall motion abnormalities noted. The right ventricle is mildly dilated. The right ventricular systolic function is borderline reduced. The left atrium is mildly dilated. The right atrium is mildly dilated. There is a trace amount of mitral regurgitation There is no mitral valve stenosis. No aortic regurgitation is present. There is no aortic valve stenosis There is a trace or physiologic amount of tricuspid regurgitation Tricuspid regurgitation jet envelope not well defined to measure RV systolic pressure accurately. The aortic root is not well visualized but is probably normal size. The inferior vena cava appeared normal and decreased > 50% with respiration (RAP 5-10 mmHg) There is no pericardial effusion. MMode/2D Measurements & Calculations RVDd: 3.1 cm LVIDd: 4.9 cm FS: 31.8 % Ao root diam: 3.1 cm IVSd: 0.99 cm LVIDs: 3.3 cm EDV(Teich): 112.9 ml LVPWd: 0.99 cm ESV(Teich): 45.5 ml Ao root area: 7.3 cm2 EF(Teich): 59.7 % LA dimension: 4.3 cm Doppler Measurements & Calculations MV E max vasu: MV P1/2t max vasu: Ao V2 max: LV V1 max P.4 cm/sec 84.4 cm/sec 137.8 cm/sec 5.2 mmHg MV A max vasu: MV P1/2t: 74.3 msec Ao max PG: LV V1 max: 75.0 cm/sec 7.6 mmHg 114.5 cm/sec MV E/A: 1.1 MVA(P1/2t): 3.0 cm2 MV dec slope: 332.9 cm/sec2 MV dec time: 0.25 sec PA V2 max: TR max vasu: 75.5 cm/sec 217.2 cm/sec PA max PG: TR max P.9 mmHg 2.3 mmHg Left Ventricle The left ventricle is grossly normal size. There is borderline concentric left ventricular hypertrophy. The left ventricular ejection fraction is normal. Doppler measurements suggest pseudonormalized left ventricular relaxation, which is associated with grade II/IV or mild to moderate diastolic dysfunction. Wall motion cannot be accurately commented on, but no definite regional wall motion abnormalities noted. Right Ventricle The right ventricle is mildly dilated. There is normal right ventricular wall thickness. The right ventricular systolic function is borderline reduced. Atria The right atrium is mildly dilated. The left atrium is mildly dilated. Interarterial septum not well visualized and not well dopplered. Cannot comment on ASD/PFO presence. Mitral Valve There is mild mitral annular calcification. There is no mitral valve stenosis. There is a trace amount of mitral regurgitation. Aortic Valve The aortic valve is not well visualized secondary to technical limitations. There is no aortic valve stenosis. No aortic regurgitation is present. Tricuspid Valve The tricuspid valve is not well visualized, but is grossly normal. There is no tricuspid stenosis. There is a trace or physiologic amount of tricuspid regurgitation. Tricuspid regurgitation jet envelope not well defined to measure RV systolic pressure accurately. Pulmonic Valve The pulmonic valve is not well visualized. Great Vessels The aortic root is not well visualized but is probably normal size. The inferior vena cava appeared normal and decreased > 50% with respiration (RAP 5-10 mmHg). Effusions There is no pericardial effusion. Incidental Findings Pacemaker wire noted. : DIONISIO PIPER > Kris Medina
[2017-05-12] MEDS: EZETIMIBE 10 MG TABLET PO SCH (21:10)
[2017-05-12] MEDS: SENNOSIDES/DOCUSATE 8.6-50 MG 1 EACH TABLET PO SCH (21:10)
[2017-05-12] MEDS: CLONAZEPAM 1 MG TABLET PO SCH (21:11)
[2017-05-12] MEDS: TEMAZEPAM 15 MG CAPSULE PO SCH (21:12)
[2017-05-12] MEDS: FENOFIBRATE NANOCRYSTALLIZED 145 MG TABLET PO SCH (21:13)
[2017-05-13 05:21] LABS: ANION GAP 7 (5-19); BLOOD UREA NITROGEN 39 mg/dL (7-20); CALCIUM 9.4 mg/dL (8.4-10.2); CARBON DIOXIDE 38 mmol/L (22-30); CHLORIDE 96 mmol/L (98-107); GLUCOSE 91 mg/dL (75-110); POTASSIUM 5.5 mmol/L (3.6-5.0); SODIUM 141.2 mmol/L (137-145)
[2017-05-13] MEDS: LANSOPRAZOLE 30 MG TAB.RAP.DR PO SCH (06:09)
[2017-05-13] MEDS: OXYCODONE HCL IR 5 MG TABLET PO PRN ×3 (08:13→22:36)
[2017-05-13] MEDS: FOLIC ACID 1 MG TABLET PO SCH (09:54)
[2017-05-13] MEDS: ISOSORBIDE MONONITRATE 30 MG TAB.ER.24H PO SCH (09:54)
[2017-05-13] MEDS: METOPROLOL TARTRATE 25 MG TABLET PO SCH ×2 (09:54→21:46)
[2017-05-13] MEDS: APIXABAN 5 MG TABLET PO SCH ×2 (09:55→17:59)
[2017-05-13] MEDS: PREDNISONE 10 MG TABLET PO SCH ×2 (09:55→17:59)
[2017-05-13] MEDS: ASPIRIN 81 MG TABLET, CHEWABLE PO SCH (09:55)
[2017-05-13] MEDS: DOCUSATE SODIUM 100 MG CAPSULE PO SCH ×2 (09:55→17:59)
[2017-05-13] MEDS ORDERED: SODIUM POLYSTYRENE SULFONATE 15 GM/60 ML PO ONE ×2 (10:00→16:57)
--- NOTE | 2017-05-13 13:33 | PDOC PROGRESS REPORT ---
Subjective Progress Note for:: 05/13/17 Subjective:: Patient is a 71-year-old male who presents with 2 weeks of increasing shortness of breath, orthopnea and PND. He has never been diagnosed with underlying COPD or obstructive sleep apnea. During this admission we have been treating the patient with BiPAP. He states that his sleep is improved on BiPAP. He has now been weaned to nasal cannula. I suspect obstructive sleep apnea. We also did pulmonary function testing demonstrating a severe defect. This appears to be primarily obstructive but a superimposed restrictive defect cannot be excluded. He also has underlying hypertension, chronic kidney disease, coronary artery disease and he uses Eliquis for anticoagulation, presumably for A. fib. The patient has been feeling better. Yesterday, the patient had an echocardiogram. This demonstrates fairly preserved LV function with concentric LVH and grade 2 diastolic dysfunction. We discussed his use of narcotics and sedatives and he is in agreement that I cut back on his sleep agents. Once he is treated for SOCORRO this should eliminate his need for sleep agents, hopefully. The patient did develop acute on chronic renal failure which responded to hydration. However, he has persistent hyperkalemia. Kayexalate was given on with minimal response on today's labs. I have no etiology of the hyperkalemia and I have consulted Dr. Saldaña of nephrology. The patient is feeling well this morning. He is still requiring between 2 and 3 L of oxygen. He does not normally wear oxygen at home. Reason For Visit: COPD EXACERBATION Physical Exam Vital Signs: Temp Pulse Resp BP Pulse Ox 98.1 F 62 14 138/81 H 92 05/13/17 07:51 05/13/17 11:18 05/13/17 11:18 05/13/17 07:51 05/13/17 11:18 Intake & Output 05/12/17 05/13/17 05/14/17 06:59 06:59 06:59 Intake Total 3283 1930 Output Total 2525 1600 Balance 758 330 Weight 112.4 kg 113.1 kg Additional comments: The patient appears to be his stated age. His cognition and mentation are appropriate. His facial appearance is unremarkable. His lungs remain clear to auscultation bilaterally. Initially breath sounds, however. His cardiac exam is regular without murmurs, gallops or rubs. The abdomen is obese but soft. Bowel sounds are present. He does not have guarding or rebound noted and there are no hernias or masses present. The lower extremities do not demonstrate any pitting edema. The skin is clean, warm, dry and intact without lesions or rashes. Results Laboratory Results: 05/11/17 04:10 05/13/17 03:59 05/13/17 03:59 Sodium 141.2 Potassium 5.5 H Chloride 96 L Carbon Dioxide 38 H Anion Gap 7 BUN 39 H Creatinine 1.08 Est GFR ( Amer) > 60 Est GFR (Non-Af Amer) > 60 Glucose 91 Calcium 9.4 Impressions: Chest X-Ray 05/09/17 10:54 IMPRESSION: NO SIGNIFICANT RADIOGRAPHIC FINDING IN THE CHEST. MILD WEDGE DEFORMITY OF THE THORACOLUMBAR VERTEBRA, AGE INDETERMINATE. Chest/Abdomen CTA 05/09/17 12:36 IMPRESSION: 1. NORMAL CTA OF THE CHEST. NO PULMONARY EMBOLI. 2. POSSIBLE ENHANCING SOLID MASS IN THE LEFT KIDNEY, INCOMPLETELY VISUALIZED. RECOMMEND FOLLOWUP CT OF THE ABDOMEN AND PELVIS WITH AND WITHOUT CONTRAST WITH ATTENTION TO THE KIDNEYS. Assessment & Plan - Diagnosis (1) Acute on chronic respiratory failure with hypoxia and hypercapnia Is this a current diagnosis for this admission?: Yes (2) COPD with exacerbation Is this a current diagnosis for this admission?: Yes (3) Coronary artery disease Is this a current diagnosis for this admission?: Yes (4) Chronic anticoagulation Is this a current diagnosis for this admission?: Yes (5) Hypertension Is this a current diagnosis for this admission?: Yes (6) Chronic kidney disease Is this a current diagnosis for this admission?: Yes (7) Obstructive sleep apnea Is this a current diagnosis for this admission?: Yes (8) Hyperkalemia Is this a current diagnosis for this admission?: Yes (9) Polycythemia Is this a current diagnosis for this admission?: Yes (10) Renal mass Is this a current diagnosis for this admission?: Yes (11) Acute renal injury Is this a current diagnosis for this admission?: Yes (12) History of hyperkalemia Is this a current diagnosis for this admission?: Yes - Time Time Spent with patient: 15-24 minutes - Inpatient Certification Medical Necessity: Need Close Monitoring Due to Risk of Patient Decompensation, Risk of Complication if Not Cared For in Hospital, Risk of Diagnosis Which Will Require Inpatient Eval/Care/Monitoring - Plan Summary Plan Summary: 1. The patient will remain on oxygen which we are trying to wean. He may require oxygen at discharge. We are going to try to qualify him for oxygen so that we can prescribe it at discharge if needed. he will remain on BiPAP at night for presumed obstructive sleep apnea. 2. The patient may have come in with COPD with exacerbation, but he did not have any wheezing. He will continue bronchodilators. Steroids will be weaned to off. Pulmonary function testing does confirm that he has a severe obstructive defect. Therefore, his bronchodilators should be continued in definitely. Pulmonary consultation as an outpatient is recommended in addition to evaluation for sleep testing. 3. Coronary artery disease: Stable 4. Chronic anticoagulation: To be continued 5. Hypertension: Continue medical management 6. Chronic kidney disease with acute renal injury: Patient responded well to IV fluids. I have stopped fluids. 7. Obstructive sleep apnea, presumed: Patient will need an evaluation with a sleep study after discharge. 8. Hyperkalemia: I did take the patient on a low potassium diet. The patient' s potassium continues to rise. He is not on any offending medications. He does not have a metabolic acidosis. I have consulted nephrology. On 05/12/2017 1 dose of Kayexalate was given secondary to a potassium of 5.7. Potassium remains elevated this morning at 5.5. 9. Patient likely has polycythemia from long-standing hypoxemia. 10. Renal mass: This will be worked up after discharge. 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 He is following up the first week of May. At this point time I do not want to give the patient any contrast for further evaluation due to the acute on chronic kidney injury.
--- NOTE | 2017-05-13 15:25 | PDOC CONSULTATION ---
Consultation Consult Date: 05/13/17 Consult reason:: hyperkalemia History of Present Illness Admission Date/PCP: 05/09/17 14:08 History of Present Illness: ALEX MALLORY is a 71 year old male from [place] with CAD and CKD. He is followed by a charge entry specialist in [facility]. He has a history undiagnosed sleep apnea and COPD. He came to the hospital with increased SOB. He has been using bipap and duonebs to help with his shortness of breath. Since the start of his visit he has had a chest and abdominal CTA with contrast and and PFT. Shortly after the CTA there was a bump in the creatinine. After hydration with IV fluids it came back down. Through out the stay his potassium has remained persistently elevated. He says that he does not have a past history of an elevated potassium. He denies chest pain, chest palpations or muscle weakness when the potassium is elevated. He also denies nausea/vomiting, fevers or chills. He does not follow a low potassium diet. Past Medical History Cardiac Medical History: Reports: Coronary Artery Disease, Hyperlipidemia, Myocardial Infarction, Other - Coronary stents Pulmonary Medical History: Reports: Chronic Obstructive Pulmonary Disease (COPD) GI Medical History: Reports: Gastroesophageal Reflux Disease Past Surgical History Past Surgical History: Reports: Orthopedic Surgery - rt hip Social History Smoking Status: Former Smoker Number of Years Smokin Last Time Smoked: 99' Frequency of Alcohol Use: Social Hx Recreational Drug Use: No Drugs: None Hx Prescription Drug Abuse: No Family History Parental Family History Reviewed: No Children Family History Reviewed: NA Sibling(s) Family History Reviewed.: NA Medication/Allergy Home Medications: Apixaban [Eliquis 5 mg Tablet] 5 mg PO BID 05/10/17 Clonazepam [Klonopin 1 mg Tablet] 1 mg PO QHS 05/10/17 Ergocalciferol (Vitamin D2) [Vitamin D2] 2,000 units PO DAILY 05/10/17 Esomeprazole Magnesium [Nexium] 40 mg PO DAILY 05/10/17 Ezetimibe [Zetia 10 mg Tablet] 10 mg PO DAILY 05/10/17 Fenofibrate Nanocrystallized [Tricor 145 mg Tablet] 145 mg PO DAILY 05/10/17 Isosorbide Mononitrate [Imdur 30 mg Tablet.er] 30 mg PO DAILY 05/10/17 Nitroglycerin [Nitrostat 0.4 mg (1/150 Gr) Tabs 25/Bottle] 1 tab SL Q5MP PRN 03/15 Polyethylene Glycol 3350 [Miralax] 1 dose PO DAILY 05/10/17 Sennosides/Docusate 8.6-50 mg [Senna Plus Tablet] 2 tab PO DAILY 05/10/17 Temazepam [Restoril] 30 mg PO QHS 05/10/17 Allergies/Adverse Reactions: No Known Allergies Allergy (Verified 02/10/17 14:39) Review of Systems Constitutional: ABSENT: anorexia, chills, fever(s), weakness Nose, Mouth, and Throat: ABSENT: headache(s) Cardiovascular: ABSENT: chest pain, dyspnea on exertion, edema, orthropnea, palpitations Respiratory: PRESENT: cough, sputum. ABSENT: dyspnea Gastrointestinal: PRESENT: constipation. ABSENT: abdominal pain, diarrhea, nausea, vomiting Musculoskeletal: ABSENT: joint swelling, muscle weakness Neurological: ABSENT: dizziness, numbness, paresthesias, tingling, weakness Physical Exam Vital Signs: Temp Pulse Resp BP Pulse Ox 98.1 F 62 14 138/81 H 92 05/13/17 07:51 05/13/17 11:18 05/13/17 11:18 05/13/17 07:51 05/13/17 11:18 Intake & Output 05/12/17 05/13/17 05/14/17 06:59 06:59 06:59 Intake Total 3283 1930 Output Total 2525 1600 Balance 758 330 Weight 112.4 kg 113.1 kg General appearance: PRESENT: no acute distress, well-developed, well-nourished Mouth exam: PRESENT: moist, neck supple Neck exam: PRESENT: full ROM. ABSENT: JVD Respiratory exam: PRESENT: clear to auscultation cody. ABSENT: accessory muscle use, crackles, rales, rhonchi, wheezes Cardiovascular exam: PRESENT: RRR, +S1, +S2 GI/Abdominal exam: PRESENT: soft. ABSENT: distended, guarding, tenderness Extremities exam: ABSENT: pedal edema, tenderness Musculoskeletal exam: PRESENT: normal inspection. ABSENT: tenderness Neurological exam: PRESENT: alert, awake, oriented to person, oriented to place , oriented to time, oriented to situation Psychiatric exam: PRESENT: appropriate affect, normal mood Skin exam: PRESENT: dry, intact, warm Results Laboratory Results: 05/11/17 04:10 05/13/17 03:59 05/13/17 03:59 Sodium 141.2 Potassium 5.5 H Chloride 96 L Carbon Dioxide 38 H Anion Gap 7 BUN 39 H Creatinine 1.08 Est GFR ( Amer) > 60 Est GFR (Non-Af Amer) > 60 Glucose 91 Calcium 9.4 Impressions: Chest X-Ray 05/09/17 10:54 IMPRESSION: NO SIGNIFICANT RADIOGRAPHIC FINDING IN THE CHEST. MILD WEDGE DEFORMITY OF THE THORACOLUMBAR VERTEBRA, AGE INDETERMINATE. Chest/Abdomen CTA 05/09/17 12:36 IMPRESSION: 1. NORMAL CTA OF THE CHEST. NO PULMONARY EMBOLI. 2. POSSIBLE ENHANCING SOLID MASS IN THE LEFT KIDNEY, INCOMPLETELY VISUALIZED. RECOMMEND FOLLOWUP CT OF THE ABDOMEN AND PELVIS WITH AND WITHOUT CONTRAST WITH ATTENTION TO THE KIDNEYS. Assessment & Plan - Diagnosis (1) Hyperkalemia Is this a current diagnosis for this admission?: Yes Plan: Gave kayexelate today and discussed a low potassium diet. Will have a potassium drawn without a tourniquet. He does not take any potassium supplements. His metoprolol could also be a factor that is elevating the potassium. Kidney function does not look to be decreased enough to cause for hyperkalemia. If potassium remains high will look to alleviate constipation with soapsuds enema and lactulose 10g BID starting tomorrow.. (2) Acute renal injury Is this a current diagnosis for this admission?: Yes Plan: nonoliguric, due to receiving contrast dye, other factors include brief hypotension. Resolved after receiving fluid. (3) Chronic kidney disease Is this a current diagnosis for this admission?: Yes Plan: has underlining kidney disease according to the patient. He is seen by a charge entry specialist in [place]. (4) COPD with exacerbation Is this a current diagnosis for this admission?: Yes Plan: looks to have resolved (5) Hypertension Is this a current diagnosis for this admission?: Yes Plan: currently controlled (6) Obstructive sleep apnea Is this a current diagnosis for this admission?: Yes Plan: recently diagnosed, using bipap at night while in the hospital. (7) Renal mass Is this a current diagnosis for this admission?: Yes Plan: needs further work up as out patient - Notes Notes: Patients case and plan was discussed with Dr. Saldaña.
[2017-05-13] MEDS ORDERED: LACTULOSE SYRUP 20 GM/30 ML UDCUP PO SCH (18:00)
[2017-05-13] MEDS ORDERED: SODIUM POLYSTYRENE SULFONATE 15 GM/60 ML ONE ×2 (21:40→21:44)
[2017-05-13] MEDS: SENNOSIDES/DOCUSATE 8.6-50 MG 1 EACH TABLET PO SCH (21:46)
[2017-05-13] MEDS: EZETIMIBE 10 MG TABLET PO SCH (21:46)
[2017-05-13] MEDS: CLONAZEPAM 1 MG TABLET PO SCH (21:46)
[2017-05-13] MEDS: FENOFIBRATE NANOCRYSTALLIZED 145 MG TABLET PO SCH (21:46)
[2017-05-13] MEDS: TEMAZEPAM 15 MG CAPSULE PO SCH (21:50)
[2017-05-14 05:16] LABS: BLOOD UREA NITROGEN 36 mg/dL (7-20); CALCIUM 9.2 mg/dL (8.4-10.2); CHLORIDE 92 mmol/L (98-107); GLUCOSE 97 mg/dL (75-110); POTASSIUM 5.3 mmol/L (3.6-5.0); SODIUM 141.8 mmol/L (137-145)
[2017-05-14 05:30] LABS: ANION GAP 5 (5-19); CARBON DIOXIDE 45 mmol/L (22-30)
[2017-05-14] MEDS: LANSOPRAZOLE 30 MG TAB.RAP.DR PO SCH (05:34)
[2017-05-14] MEDS: TRAMADOL HCL 50 MG TABLET PO PRN ×2 (08:25→21:54)
[2017-05-14] MEDS: OXYCODONE HCL IR 5 MG TABLET PO PRN ×2 (09:11→15:00)
[2017-05-14] MEDS: ASPIRIN 81 MG TABLET, CHEWABLE PO SCH (09:16)
[2017-05-14] MEDS: METOPROLOL TARTRATE 25 MG TABLET PO SCH (09:16)
[2017-05-14] MEDS: DOCUSATE SODIUM 100 MG CAPSULE PO SCH ×2 (09:16→18:29)
[2017-05-14] MEDS: FOLIC ACID 1 MG TABLET PO SCH (09:16)
[2017-05-14] MEDS: PREDNISONE 10 MG TABLET PO SCH (09:16)
[2017-05-14] MEDS: ISOSORBIDE MONONITRATE 30 MG TAB.ER.24H PO SCH (09:17)
[2017-05-14] MEDS: APIXABAN 5 MG TABLET PO SCH ×2 (09:17→18:29)
[2017-05-14] MEDS ORDERED: SODIUM POLYSTYRENE SULFONATE 15 GM/60 ML PO ONE (11:30)
--- NOTE | 2017-05-14 11:32 | PDOC PROGRESS REPORT ---
Subjective Progress Note for:: 05/14/17 Reason For Visit: Patient seen today. He is relatively comfortable with nasal cannula. He says he has not been ambulating in the [place] dose yet even though he thinks he can. He denies any chest pain, fever or chills. Notes were reviewed and his current issues were discussed at length with the patient. He does have apparent CKD stage III and sees a cloth finishing range tender in [place] where he is from. Does have heart disease and was put on metoprolol approximately a year ago. He was unaware of a diagnosis of COPD of possible sleep apnea. However he has apparently had good response to being on the CPAP even though he does not have a overt clinical features of sleep apnea or COPD both of which are in the process of being diagnosed during this hospitalization here. He has positive pulmonary function test and sleep study is pending. He has never been told to have hypertension by his cloth finishing range tender before. He admits to being constipated. During his initial hospitalization here he had AK I seems to have resolved but his potassium has been persistently elevated between 5 and 5.5. His blood gases done early showed CO2 retention with PCO2 of around 75 and bicarb of around 40. Physical Exam Vital Signs: Temp Pulse Resp BP Pulse Ox 97.5 F 66 16 151/79 H 94 05/14/17 07:59 05/14/17 08:00 05/14/17 08:00 05/14/17 07:59 05/14/17 08:00 Intake & Output 05/13/17 05/14/17 05/15/17 06:59 06:59 06:59 Intake Total 1930 1432 Output Total 1600 275 Balance 330 1157 Weight 113.1 kg 111.5 kg General appearance: PRESENT: no acute distress Mouth exam: ABSENT: moist Respiratory exam: PRESENT: clear to auscultation cody - Scattered wheezing, wheezes. ABSENT: crackles Cardiovascular exam: PRESENT: RRR, +S1, +S2 GI/Abdominal exam: PRESENT: soft. ABSENT: distended, guarding, tenderness Extremities exam: ABSENT: pedal edema Results Laboratory Results: 05/11/17 04:10 05/14/17 03:58 05/13/17 05/14/17 14:46 03:58 Sodium 141.8 Potassium 5.5 H 5.3 H Chloride 92 L Carbon Dioxide 45 H* Anion Gap 5 BUN 36 H Creatinine 1.08 Est GFR ( Amer) > 60 Est GFR (Non-Af Amer) > 60 Glucose 97 Calcium 9.2 Impressions: Chest X-Ray 05/09/17 10:54 IMPRESSION: NO SIGNIFICANT RADIOGRAPHIC FINDING IN THE CHEST. MILD WEDGE DEFORMITY OF THE THORACOLUMBAR VERTEBRA, AGE INDETERMINATE. Chest/Abdomen CTA 05/09/17 12:36 IMPRESSION: 1. NORMAL CTA OF THE CHEST. NO PULMONARY EMBOLI. 2. POSSIBLE ENHANCING SOLID MASS IN THE LEFT KIDNEY, INCOMPLETELY VISUALIZED. RECOMMEND FOLLOWUP CT OF THE ABDOMEN AND PELVIS WITH AND WITHOUT CONTRAST WITH ATTENTION TO THE KIDNEYS. Assessment & Plan - Diagnosis (1) Acute on chronic respiratory failure with hypoxia and hypercapnia Is this a current diagnosis for this admission?: Yes Plan: Likely a combination of COPD and sleep apnea. Continue present management. (2) Acute renal injury Is this a current diagnosis for this admission?: Yes (3) COPD (chronic obstructive pulmonary disease) Plan: On appropriate medications. (4) Chronic kidney disease Is this a current diagnosis for this admission?: Yes (5) Hyperkalemia Is this a current diagnosis for this admission?: Yes Plan: After review of all his medications and his history and labs, I believe that metoprolol could be a culprit. I am going to discontinue the metoprolol and put him on a low potassium diet and treat him with Kayexalate for 4 doses and monitor. He will need to be have this monitored on a regular basis as an outpatient as well. (6) Hypertension Is this a current diagnosis for this admission?: Yes Plan: Uncontrolled. Monitor. (7) Renal mass Is this a current diagnosis for this admission?: Yes Plan: Needs to be evaluated as an outpatient.
--- NOTE | 2017-05-14 13:31 | PDOC PROGRESS REPORT ---
Subjective Progress Note for:: 05/14/17 Subjective:: Patient is a 71-year-old male who presents with 2 weeks of increasing shortness of breath, orthopnea and PND. He has never been diagnosed with underlying COPD or obstructive sleep apnea. During this admission we have been treating the patient with BiPAP. He states that his sleep is improved on BiPAP. He has now been weaned to nasal cannula. I strongly suspect obstructive sleep apnea but the patient has never been formally tested. We also did pulmonary function testing demonstrating a severe defect. This appears to be primarily obstructive but a superimposed restrictive defect cannot be excluded. He also has underlying hypertension, chronic kidney disease, coronary artery disease and he uses Eliquis for anticoagulation, presumably for A. fib. The patient has been feeling better. Wednesday, the patient had an echocardiogram. This demonstrates fairly preserved LV function with concentric LVH and grade 2 diastolic dysfunction. We discussed his use of narcotics and sedatives and he is in agreement that I cut back on his sleep agents and narcotics (at least until he is formally treated for SOCORRO) Once he is treated for SOCORRO this should eliminate his need for sleep agents, hopefully. The patient did develop acute on chronic renal failure which responded to hydration. The etiology of his renal failure was likely IV contrast. However, he has persistent hyperkalemia. Kayexalate was given on 05/12/2017 with minimal response on today's labs. I have no etiology of the hyperkalemia and I have consulted Dr. Saldaña of nephrology. The patient had minimal response to Kayexalate he was treated with a soapsuds enema yesterday. Dr. Saldaña feels that the high potassium is from metoprolol. He has discontinued the patient's metoprolol. During this hospitalization we have also identified that the patient will need to be discharged on home oxygen. He meets criteria for supplemental oxygen. Discharge planning has been consulted. Reason For Visit: COPD EXACERBATION Physical Exam Vital Signs: Temp Pulse Resp BP Pulse Ox 97.5 F 66 16 151/79 H 94 05/14/17 07:59 05/14/17 08:00 05/14/17 08:00 05/14/17 07:59 05/14/17 08:00 Intake & Output 05/13/17 05/14/17 05/15/17 06:59 06:59 06:59 Intake Total 1930 1432 Output Total 1600 275 Balance 330 1157 Weight 113.1 kg 111.5 kg Additional comments: The patient is an extremely pleasant, elderly male. He is morbidly obese. He is not in any distress this morning. His cognition and mentation remain appropriate. His facial appearance is unremarkable. His lungs remain clear to auscultation bilaterally. In fact, his lungs have always been clear to auscultation during this hospitalization. His cardiac exam is regular without murmurs, gallops or rubs. The abdomen is soft and flat. The abdomen is obese. He does not have guarding or rebound noted and there are no hernias or masses present. The lower extremities are very thin. The skin is warm, dry and intact without lesions or rashes. Results Laboratory Results: 05/11/17 04:10 05/14/17 03:58 05/13/17 05/14/17 14:46 03:58 Sodium 141.8 Potassium 5.5 H 5.3 H Chloride 92 L Carbon Dioxide 45 H* Anion Gap 5 BUN 36 H Creatinine 1.08 Est GFR ( Amer) > 60 Est GFR (Non-Af Amer) > 60 Glucose 97 Calcium 9.2 Impressions: Chest X-Ray 05/09/17 10:54 IMPRESSION: NO SIGNIFICANT RADIOGRAPHIC FINDING IN THE CHEST. MILD WEDGE DEFORMITY OF THE THORACOLUMBAR VERTEBRA, AGE INDETERMINATE. Chest/Abdomen CTA 05/09/17 12:36 IMPRESSION: 1. NORMAL CTA OF THE CHEST. NO PULMONARY EMBOLI. 2. POSSIBLE ENHANCING SOLID MASS IN THE LEFT KIDNEY, INCOMPLETELY VISUALIZED. RECOMMEND FOLLOWUP CT OF THE ABDOMEN AND PELVIS WITH AND WITHOUT CONTRAST WITH ATTENTION TO THE KIDNEYS. Assessment & Plan - Diagnosis (1) Acute on chronic respiratory failure with hypoxia and hypercapnia Is this a current diagnosis for this admission?: Yes (2) COPD with exacerbation Is this a current diagnosis for this admission?: Yes (3) Coronary artery disease Is this a current diagnosis for this admission?: Yes (4) Chronic anticoagulation Is this a current diagnosis for this admission?: Yes (5) Hypertension Is this a current diagnosis for this admission?: Yes (6) Chronic kidney disease Is this a current diagnosis for this admission?: Yes (7) Obstructive sleep apnea Is this a current diagnosis for this admission?: Yes (8) Hyperkalemia Is this a current diagnosis for this admission?: Yes (9) Polycythemia Is this a current diagnosis for this admission?: Yes (10) Renal mass Is this a current diagnosis for this admission?: Yes (11) Acute renal injury Is this a current diagnosis for this admission?: Yes (12) History of hyperkalemia Is this a current diagnosis for this admission?: Yes - Time Time Spent with patient: 25-34 minutes - Inpatient Certification Medical Necessity: Significant Comorbidiites Make Outpatient Treatment Too Risky , Need Close Monitoring Due to Risk of Patient Decompensation, Risk of Complication if Not Cared For in Hospital, Risk of Diagnosis Which Will Require Inpatient Eval/Care/Monitoring - Plan Summary Plan Summary: 1. The patient will remain on oxygen which we are trying to wean. He does require oxygen at discharge. Discharger planning has been notified. He will remain on BiPAP at night for presumed obstructive sleep apnea. He agrees to f/u with his PCM after discharge. His PCM will need to order sleep study. 2. The patient may have come in with COPD with exacerbation, but he did not have any wheezing. He will continue bronchodilators. Steroids will be weaned. Today, I have decreased prednisone to 10mg per day. Pulmonary function testing does confirm that he has a severe obstructive defect. Therefore, his bronchodilators should be continued in definitely. Pulmonary consultation as an outpatient is recommended in addition to evaluation for sleep testing. 3. Coronary artery disease: Stable, but, note that nephrology has discontinued metoprolol as this may be causing hyperkalemia. 4. Chronic anticoagulation: To be continued 5. Hypertension: Continue medical management 6. Chronic kidney disease with acute renal injury: Likely due to IV contrast. Patient responded well to IV fluids. I have stopped fluids. 7. Obstructive sleep apnea, presumed: Patient will need an evaluation with a sleep study after discharge. 8. Hyperkalemia: Continue low potassium diet. Nephrology is assisting with management. Recommendations today are to stop metoprolol. 9. Patient likely has polycythemia from long-standing hypoxemia. 10. Renal mass: This will be worked up after discharge. 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 He is following up the first week of May. At this point time I do not want to give the patient any contrast for further evaluation due to the acute on chronic kidney injury.
[2017-05-14] MEDS: NORMAL SALINE 1000 ML 1,000 ML IV PRN (13:51)
[2017-05-14] MEDS: SODIUM POLYSTYRENE SULFONATE 15 GM/60 ML PO SCH (21:53)
[2017-05-14] MEDS: LACTULOSE SYRUP 20 GM/30 ML UDCUP PO SCH (21:53)
[2017-05-14] MEDS: TEMAZEPAM 7.5 MG CAPSULE PO SCH (21:53)
[2017-05-14] MEDS: SENNOSIDES/DOCUSATE 8.6-50 MG 1 EACH TABLET PO SCH (21:54)
[2017-05-14] MEDS: EZETIMIBE 10 MG TABLET PO SCH (21:55)
[2017-05-14] MEDS: CLONAZEPAM 1 MG TABLET PO SCH (21:56)
[2017-05-14] MEDS: FENOFIBRATE NANOCRYSTALLIZED 145 MG TABLET PO SCH (21:56)
[2017-05-14] MEDS ORDERED: TEMAZEPAM 15 MG CAPSULE PO SCH (22:00)
[2017-05-15] MEDS: LANSOPRAZOLE 30 MG TAB.RAP.DR PO SCH (05:21)
[2017-05-15] MEDS: OXYCODONE HCL IR 5 MG TABLET PO PRN ×2 (05:22→14:54)
[2017-05-15 05:37] LABS: BLOOD UREA NITROGEN 29 mg/dL (7-20); CHLORIDE 94 mmol/L (98-107); GLUCOSE 65 mg/dL (75-110); POTASSIUM 4.2 mmol/L (3.6-5.0); SODIUM 140.4 mmol/L (137-145)
[2017-05-15 05:52] LABS: ANION GAP 5 (5-19); CARBON DIOXIDE 41 mmol/L (22-30)
[2017-05-15] MEDS: PREDNISONE 10 MG TABLET PO SCH (10:10)
[2017-05-15] MEDS: ASPIRIN 81 MG TABLET, CHEWABLE PO SCH (10:10)
[2017-05-15] MEDS: ISOSORBIDE MONONITRATE 30 MG TAB.ER.24H PO SCH (10:10)
[2017-05-15] MEDS: DOCUSATE SODIUM 100 MG CAPSULE PO SCH (10:10)
[2017-05-15] MEDS: SODIUM POLYSTYRENE SULFONATE 15 GM/60 ML PO SCH ×2 (10:10→21:38)
[2017-05-15] MEDS: LACTULOSE SYRUP 20 GM/30 ML UDCUP PO SCH (10:10)
[2017-05-15] MEDS: APIXABAN 5 MG TABLET PO SCH ×2 (10:11→18:48)
[2017-05-15] MEDS: FOLIC ACID 1 MG TABLET PO SCH (10:11)
[2017-05-15] MEDS: NORMAL SALINE 1000 ML 1,000 ML IV PRN (10:11)
--- NOTE | 2017-05-15 17:25 | PDOC PROGRESS REPORT ---
Subjective Progress Note for:: 05/15/17 Subjective:: Pt states breathing is 80% of his normal. No chest pain. No cough or sputum production. No fevers or chills. Patient has moved his bowels multiple times today. No evidence of bleeding. Abdominal pain nausea or vomiting. Dysuria. COmplete ROS performed and is negative aside from what is noted here. I have reviewed the patient's labs and pertinent diagnostic studies today. Reason For Visit: COPD EXACERBATION Physical Exam Vital Signs: Temp Pulse Resp BP Pulse Ox 98.7 F 63 18 160/78 H 92 05/15/17 15:57 05/15/17 15:57 05/15/17 15:57 05/15/17 15:57 05/15/17 15:57 Intake & Output 05/14/17 05/15/17 05/16/17 06:59 06:59 06:59 Intake Total 1432 2657 600 Output Total 275 1075 Balance 1157 1582 600 Weight 111.5 kg 111.5 kg General appearance: PRESENT: no acute distress, cooperative Head exam: PRESENT: atraumatic, normocephalic Eye exam: PRESENT: conjunctiva pink, EOMI Ear exam: PRESENT: normal external ear exam Mouth exam: PRESENT: neck supple Respiratory exam: PRESENT: decreased breath sounds, unlabored. ABSENT: rales, wheezes Cardiovascular exam: PRESENT: RRR. ABSENT: systolic murmur Pulses: PRESENT: normal radial pulses GI/Abdominal exam: PRESENT: normal bowel sounds, soft. ABSENT: distended, guarding, tenderness Rectal exam: PRESENT: deferred Extremities exam: PRESENT: pedal edema Musculoskeletal exam: PRESENT: ambulatory, normal inspection Neurological exam: PRESENT: alert, altered, awake, oriented to person, oriented to place, oriented to situation, CN II-XII grossly intact Psychiatric exam: PRESENT: appropriate affect. ABSENT: anxious Skin exam: PRESENT: dry, intact, warm Results Laboratory Results: 05/11/17 04:10 05/15/17 04:38 05/15/17 04:38 Sodium 140.4 Potassium 4.2 Chloride 94 L Carbon Dioxide 41 H* Anion Gap 5 BUN 29 H Creatinine 0.95 Est GFR ( Amer) > 60 Est GFR (Non-Af Amer) > 60 Glucose 65 L Calcium 9.0 Impressions: Chest X-Ray 05/09/17 10:54 IMPRESSION: NO SIGNIFICANT RADIOGRAPHIC FINDING IN THE CHEST. MILD WEDGE DEFORMITY OF THE THORACOLUMBAR VERTEBRA, AGE INDETERMINATE. Chest/Abdomen CTA 05/09/17 12:36 IMPRESSION: 1. NORMAL CTA OF THE CHEST. NO PULMONARY EMBOLI. 2. POSSIBLE ENHANCING SOLID MASS IN THE LEFT KIDNEY, INCOMPLETELY VISUALIZED. RECOMMEND FOLLOWUP CT OF THE ABDOMEN AND PELVIS WITH AND WITHOUT CONTRAST WITH ATTENTION TO THE KIDNEYS. Assessment & Plan - Diagnosis (1) Acute on chronic respiratory failure with hypoxia and hypercapnia Is this a current diagnosis for this admission?: Yes Plan: Patient has not had an oxygen requirement until this hospitalization. It could be that over time he has been developing that requirement but it has just now come to light. He will be discharged with home oxygen 2 L as he dropped to 87% on room air. Patient has untreated sleep apnea likely and he is scheduled for outpatient sleep study. He also has a COPD exacerbation and we are treating that. (2) COPD with exacerbation Is this a current diagnosis for this admission?: Yes Plan: Significantly improved. Continue prednisone taper. Continue oxygen. (3) Chronic kidney disease Is this a current diagnosis for this admission?: Yes (4) Hyperkalemia Is this a current diagnosis for this admission?: Yes Plan: Nephrology was consulted to evaluate. It is thought to be due to metoprolol. This medication has been discontinued. Patient is on scheduled Kayexalate for 4 doses, last dose tonight. His potassium is coming down. I will recheck his basic metabolic panel in the morning. He will likely be ready for discharge if his electrolytes are back to normal. (5) Obstructive sleep apnea Is this a current diagnosis for this admission?: Yes Plan: Outpatient sleep study planned. He will go home with home O2 for now. (6) Polycythemia Is this a current diagnosis for this admission?: Yes Plan: Chronic related to chronic pulmonary disease. She will see heavy line technician as an outpatient. (7) Renal mass Is this a current diagnosis for this admission?: Yes Plan: He has been seen by nephrology in consult while in the hospital. Will need to have this evaluated as an outpatient per their consultation. (8) Coronary artery disease Is this a current diagnosis for this admission?: Yes Plan: This is stable. I will continue his cardiac meds with the exception of the metoprolol which is on hold per renal recommendations. He will need to get back to his primary care doctor soon after discharge to have this problem followed. Blood pressure is holding for now. - Time Time Spent with patient: 25-34 minutes Medications reviewed and adjusted accordingly: Yes Anticipated discharge: Home - Inpatient Certification Based on my medical assessment, after consideration of the patient's comorbidities, presenting symptoms, or acuity I expect that the services needed warrant INPATIENT care.: Yes I certify that my determination is in accordance with my understanding of Medicare's requirements for reasonable and necessary INPATIENT services [42 CFR 412.3e].: Yes Medical Necessity: Significant Comorbidiites Make Outpatient Treatment Too Risky , Need Close Monitoring Due to Risk of Patient Decompensation, Risk of Complication if Not Cared For in Hospital
[2017-05-15] MEDS: CLONAZEPAM 1 MG TABLET PO SCH (21:38)
[2017-05-15] MEDS: EZETIMIBE 10 MG TABLET PO SCH (21:39)
[2017-05-15] MEDS: FENOFIBRATE NANOCRYSTALLIZED 145 MG TABLET PO SCH (21:39)
[2017-05-15] MEDS: TEMAZEPAM 7.5 MG CAPSULE PO SCH (21:39)
[2017-05-16 05:47] LABS: BLOOD UREA NITROGEN 25 mg/dL (7-20); CALCIUM 9.1 mg/dL (8.4-10.2); CHLORIDE 94 mmol/L (98-107); GLUCOSE 95 mg/dL (75-110); POTASSIUM 3.9 mmol/L (3.6-5.0); SODIUM 141.3 mmol/L (137-145)
[2017-05-16 05:57] LABS: ANION GAP 6 (5-19)
[2017-05-16 05:59] LABS: CARBON DIOXIDE 41 mmol/L (22-30)
[2017-05-16] MEDS: LANSOPRAZOLE 30 MG TAB.RAP.DR PO SCH (06:29)
[2017-05-16] MEDS: OXYCODONE HCL IR 5 MG TABLET PO PRN (06:31)
[2017-05-16 07:34] VITALS: BP 137/82
[2017-05-16] MEDS: ISOSORBIDE MONONITRATE 30 MG TAB.ER.24H PO SCH (10:34)
[2017-05-16] MEDS: PREDNISONE 10 MG TABLET PO SCH (10:34)
[2017-05-16] MEDS: APIXABAN 5 MG TABLET PO SCH (10:34)
[2017-05-16] MEDS: ASPIRIN 81 MG TABLET, CHEWABLE PO SCH (10:35)
[2017-05-16] MEDS: FOLIC ACID 1 MG TABLET PO SCH (10:35)
--- NOTE | 2017-05-16 20:56 | PDOC DISCHARGE SUMMARY ---
General - Admit/Disc Date/PCP Admission Date/Primary Care Provider: 05/09/17 14:08 Discharge Date: 05/16/17 - Discharge Diagnosis (1) Acute on chronic respiratory failure with hypoxia and hypercapnia Is this a current diagnosis for this admission?: Yes Summary: Secondary to COPD with exacerbation and untreated SOCORRO. Patient was discharged with 2 L of nasal cannula oxygen for room air sats of 87%. Hypoxemia and hypercapnia were improved. Asked to follow closely with his primary care doctor for full sleep study and for repeat basic metabolic panel. (2) COPD with exacerbation Is this a current diagnosis for this admission?: Yes Summary: Patient was discharged with several more days of low-dose prednisone and with an albuterol inhaler, along with 2 L of nasal cannula oxygen. Sleep study and full pulmonary function test will be performed as an outpatient. (3) Hyperkalemia Is this a current diagnosis for this admission?: Yes Summary: Patient was seen by nephrology for hyperkalemia. It was hypothesized that his metoprolol was causing hyperkalemia. Metoprolol was stopped. He was put on Kayexalate for several days and his potassium did resolve to normal. I have asked him to talk to his doctor about having a repeat BMP within the next several days and about the fact that he is now off of his metoprolol. (4) Obstructive sleep apnea Is this a current diagnosis for this admission?: Yes Summary: For now patient is discharged with home O2. Outpatient sleep study is pending. (5) Polycythemia Is this a current diagnosis for this admission?: Yes Summary: Compared to chronic hypoxemia due to underlying medical problems, improved on discharge. (6) Renal mass Is this a current diagnosis for this admission?: Yes Summary: CTA of the chest and abdomen were performed to evaluate for PE and that was negative, however left kidney enhancing solid mass seen, patient aware and knows that he needs to follow-up with his primary care doctor for further evaluation. (7) Restrictive lung disease Is this a current diagnosis for this admission?: Yes Summary: This may be multifactorial but is certainly contributed to by his obesity. Restrictive lung disease will be further evaluated with his formal PFTs as an outpatient. Discussed weight loss at length. (8) Obesity Is this a current diagnosis for this admission?: Yes Summary: Discussed weight loss at length. Given his multiple medical problems I have advised that he speak with his primary care doctor about a good weight loss plan. - Additional Information Discharge Diet: Cardiac, Other (Comments) Discharge Activity: Balance Activity w/Rest, Other Prescriptions: Albuterol Sulfate [Proair HFA Inhalation Aerosol 8.5 gm MDI] 2 puff IH Q4HP PRN #1 hfa.aer.ad PRN Reason: Prednisone [Deltasone 10 mg Tablet] 10 mg PO DAILY 3 Days #3 tablet Home Medications: Apixaban [Eliquis 5 mg Tablet] 5 mg PO BID 05/10/17 Clonazepam [Klonopin 1 mg Tablet] 1 mg PO QHS 05/10/17 Ergocalciferol (Vitamin D2) [Vitamin D2] 2,000 units PO DAILY 05/10/17 Esomeprazole Magnesium [Nexium] 40 mg PO DAILY 05/10/17 Ezetimibe [Zetia 10 mg Tablet] 10 mg PO DAILY 05/10/17 Fenofibrate Nanocrystallized [Tricor 145 mg Tablet] 145 mg PO DAILY 05/10/17 Isosorbide Mononitrate [Imdur 30 mg Tablet.er] 30 mg PO DAILY 05/10/17 Nitroglycerin [Nitrostat 0.4 mg (1/150 Gr) Tabs 25/Bottle] 1 tab SL Q5MP PRN 03/15 Polyethylene Glycol 3350 [Miralax] 1 dose PO DAILY 05/10/17 Sennosides/Docusate 8.6-50 mg [Senna Plus Tablet] 2 tab PO DAILY 05/10/17 Temazepam [Restoril] 30 mg PO QHS 05/10/17 Albuterol Sulfate [Proair HFA Inhalation Aerosol 8.5 gm MDI] 2 puff IH Q4HP PRN #1 hfa.aer.ad 05/16/17 Apixaban [Eliquis 5 mg Tablet] 5 mg PO BID tablet 05/16/17 Aspirin [Aspirin 81 mg Chewable Tablet] 81 mg PO DAILY tab.chew 05/16/17 Clonazepam [Klonopin 1 mg Tablet] 0.5 mg PO QHS tablet 05/16/17 Ezetimibe [Zetia 10 mg Tablet] 10 mg PO QHS tablet 05/16/17 Fenofibrate Nanocrystallized [Tricor 145 mg Tablet] 145 mg PO QHS tablet Folic Acid [Folvite 1 mg Tablet] 1 mg PO DAILY tablet 05/16/17 Isosorbide Mononitrate [Imdur 30 mg Tablet.er] 30 mg PO DAILY tab.er.24h Lansoprazole [Prevacid 30 mg Odt Tablet] 30 mg PO Q6AM tab.rap.dr 05/16/17 Nitroglycerin [Nitrostat 0.4 mg (1/150 Gr) Tabs 25/Bottle] 1 tab SL Q5MP PRN bottle 05/16/17 Prednisone [Deltasone 10 mg Tablet] 10 mg PO DAILY 3 Days #3 tablet 05/16/17 Temazepam [Restoril 7.5 mg Capsule] 7.5 mg PO QHS capsule 05/16/17 History of Present Illness Patient complains of: Short as of breath History of Present Illness: ALEX MALLORY is a 71 year old male who was admitted to the hospitalist service with 2 weeks of increasing shortness of breath, orthopnea and PND. He had never been diagnosed with COPD or obstructive sleep apnea but it appeared that he had both. Hospital Course Hospital Course: Patient is a 71-year-old male who presents with 2 weeks of increasing shortness of breath, orthopnea and PND. He has never been diagnosed with underlying COPD or obstructive sleep apnea. During this admission we have been treating the patient with BiPAP. He states that his sleep is improved on BiPAP. He has now been weaned to nasal cannula. I strongly suspect obstructive sleep apnea but the patient has never been formally tested. We also did pulmonary function testing demonstrating a severe defect. This appears to be primarily obstructive but a superimposed restrictive defect cannot be excluded. He also has underlying hypertension, chronic kidney disease, coronary artery disease and he uses Eliquis for anticoagulation, presumably for A. fib. The patient has been feeling better. Wednesday, the patient had an echocardiogram. This demonstrates fairly preserved LV function with concentric LVH and grade 2 diastolic dysfunction. We discussed his use of narcotics and sedatives and he is in agreement that I cut back on his sleep agents and narcotics (at least until he is formally treated for SOCORRO) Once he is treated for SOCORRO this should eliminate his need for sleep agents, hopefully. The patient did develop acute on chronic renal failure which responded to hydration. The etiology of his renal failure was likely IV contrast. However, he has persistent hyperkalemia. Kayexalate was given on 05/12/2017 with minimal response on today's labs. We originally had no etiology of the hyperkalemia and we consulted Dr. Saldaña of nephrology. The patient had minimal response to Kayexalate he was treated with a soapsuds enema yesterday. Dr. Saldaña feels that the high potassium is from metoprolol. He has discontinued the patient's metoprolol. During this hospitalization we have also identified that the patient will need to be discharged on home oxygen. He meets criteria for supplemental oxygen. He is discharged home with his oxygen, several more more days of prednisone, plans for outpatient sleep study and plans to return to medical care with any concerning symptoms. Physical Exam Vital Signs: Temp Pulse Resp BP Pulse Ox 98.0 F 60 18 137/82 H 95 05/16/17 12:25 05/16/17 12:25 05/16/17 12:25 05/16/17 07:20 05/16/17 12:25 Intake & Output 05/15/17 05/16/17 05/17/17 06:59 06:59 06:59 Intake Total 2657 1566 Output Total 1075 525 Balance 1582 1041 Weight 111.5 kg 112 kg General appearance: PRESENT: no acute distress, cooperative Head exam: PRESENT: atraumatic, normocephalic Eye exam: PRESENT: conjunctiva pink, EOMI Ear exam: PRESENT: normal external ear exam Mouth exam: PRESENT: moist, neck supple Respiratory exam: PRESENT: unlabored, wheezes. ABSENT: accessory muscle use, rales, rhonchi, tachypnea Cardiovascular exam: PRESENT: RRR. ABSENT: systolic murmur Pulses: PRESENT: normal radial pulses GI/Abdominal exam: PRESENT: normal bowel sounds, soft, other - Obese abdomen. ABSENT: distended, tenderness Rectal exam: PRESENT: deferred Extremities exam: PRESENT: pedal edema Musculoskeletal exam: PRESENT: normal inspection Neurological exam: PRESENT: alert, awake, oriented to person, oriented to place , oriented to situation, CN II-XII grossly intact Psychiatric exam: PRESENT: appropriate affect. ABSENT: anxious Skin exam: PRESENT: dry, intact, warm Results Laboratory Results: 05/11/17 04:10 05/16/17 04:38 05/16/17 04:38 Sodium 141.3 Potassium 3.9 Chloride 94 L Carbon Dioxide 41 H* Anion Gap 6 BUN 25 H Creatinine 1.10 Est GFR ( Amer) > 60 Est GFR (Non-Af Amer) > 60 Glucose 95 Calcium 9.1 Impressions: Chest X-Ray 05/09/17 10:54 IMPRESSION: NO SIGNIFICANT RADIOGRAPHIC FINDING IN THE CHEST. MILD WEDGE DEFORMITY OF THE THORACOLUMBAR VERTEBRA, AGE INDETERMINATE. Chest/Abdomen CTA 05/09/17 12:36 IMPRESSION: 1. NORMAL CTA OF THE CHEST. NO PULMONARY EMBOLI. 2. POSSIBLE ENHANCING SOLID MASS IN THE LEFT KIDNEY, INCOMPLETELY VISUALIZED. RECOMMEND FOLLOWUP CT OF THE ABDOMEN AND PELVIS WITH AND WITHOUT CONTRAST WITH ATTENTION TO THE KIDNEYS. Qualifiers PATEINT BEING DISCHARGED WITH ANY OF THE FOLLOWING DIAGNOSIS?: No
== END 2017-05-16 13:19 | disposition home or self-care (01) | DRG 189 ==
LOC: ER 10:42 → EH 14:08 → 3N 20:46
PROVIDERS: ADMIT Emergency Medicine; ATTEND Emergency Medicine
PROC: 5A09557 Assistance with Respiratory Ventilation, Greater than 96 Consecutive Hours, Continuous Positive Airway Pressure (ICD-10-PCS; principal; 2017-05-09)
DX: J96.22 Acute and chronic respiratory failure with hypercapnia (principal); J44.1 Chronic obstructive pulmonary disease with (acute) exacerbation; I13.0 Hypertensive heart and chronic kidney disease with heart failure and stage 1 through stage 4 chronic kidney disease, or unspecified chronic kidney disease; N17.9 Acute kidney failure, unspecified; J96.21 Acute and chronic respiratory failure with hypoxia; E87.5 Hyperkalemia; G47.33 Obstructive sleep apnea (adult) (pediatric); E66.9 Obesity, unspecified; N28.89 Other specified disorders of kidney and ureter; D75.1 Secondary polycythemia; I25.10 Atherosclerotic heart disease of native coronary artery without angina pectoris; E78.5 Hyperlipidemia, unspecified; I50.9 Heart failure, unspecified; K21.9 Gastro-esophageal reflux disease without esophagitis; I48.91 Unspecified atrial fibrillation; Z95.5 Presence of coronary angioplasty implant and graft; I25.2 Old myocardial infarction; N18.9 Chronic kidney disease, unspecified; Z79.02 Long term (current) use of antithrombotics/antiplatelets; Z87.891 Personal history of nicotine dependence; Z66 Do not resuscitate; Z79.899 Other long term (current) drug therapy; Z79.82 Long term (current) use of aspirin; K59.00 Constipation, unspecified; E66.01 Morbid (severe) obesity due to excess calories; Z68.33 Body mass index [BMI] 33.0-33.9, adult
CPT/HCPCS: 36415; 71046; 71275; 80048; 80053; 82533; 82803; 82962; 83735; 83880; 84132; 84484; 85025; 85027; 93005; 93010; 93306; 94060; 94640; 94660; 99291; J2920; J3490; J7030; J7512; J7620; S0119

== ENCOUNTER 2017-06-30 11:50 | Emergency (ER) | payer MEDICARE, OTHER ==
[2017-06-30] MEDS ORDERED: OXYMETAZOLINE HCL 0.05% NASAL SPRAY 15 ML BOTTLE ONE (12:06)
[2017-06-30] MEDS ORDERED: CLONAZEPAM 1 MG TABLET PO ONE (12:19)
[2017-06-30] MEDS ORDERED: ONDANSETRON HCL INJ/PF 4 MG/2 ML SDV IV ONE (12:21)
[2017-06-30] MEDS ORDERED: NORMAL SALINE 1000 ML 1,000 ML IV PRN (12:35)
[2017-06-30] MEDS ORDERED: LIDOCAINE 2% VISCOUS SOLN 20 ML UDCUP PO ONE (12:36)
--- NOTE | 2017-06-30 12:39 | ER Document Report ---
ED General - General Chief Complaint: Nose Bleed Stated Complaint: NOSE BLEED Time Seen by Provider: 06/30/17 12:30 Mode of Arrival: Ambulatory Information source: Patient Notes: This is a 71-year-old man with a history of COPD, obstructive sleep apnea, atrial fibrillation (currently anticoagulated with Eliquis and 325 mg aspirin daily), hyperkalemia, chronic kidney disease. Patient presents to the emergency room with an acute nosebleed. Patient states it started approximately 1 hour before arrival. TRAVEL OUTSIDE OF THE [place] IN LAST 30 DAYS: No - HPI Onset: Just prior to arrival Onset/Duration: Sudden Quality of pain: No pain Severity: None Pain Level: Denies Associated symptoms: denies: Chest pain, Fever, Shortness of breath Exacerbated by: Denies Relieved by: Denies Similar symptoms previously: Yes Recently seen / treated by doctor: Yes - Related Data Allergies/Adverse Reactions: No Known Allergies Allergy (Verified 06/30/17 11:51) Past Medical History - General Information source: Patient - Social History Smoking Status: Former Smoker Cigarette use (# per day): No Chew tobacco use (# tins/day): No Frequency of alcohol use: None Drug Abuse: None Lives with: Spouse/Significant other Family History: Reviewed & Not Pertinent Patient has suicidal ideation: No Patient has homicidal ideation: No - Past Medical History Cardiac Medical History: Reports: Hx Congestive Heart Failure, Hx Coronary Artery Disease, Hx Heart Attack, Hx Hypercholesterolemia Pulmonary Medical History: Reports: Hx COPD Renal/ Medical History: Reports: Hx Renal Insufficiency - Running kidney disease. Denies: Hx Peritoneal Dialysis GI Medical History: Reports: Hx Gastroesophageal Reflux Disease Past Surgical History: Reports: Hx Genitourinary Surgery - Urethral stricture laser and dilatation in the past, Hx Orthopedic Surgery - rt hip Review of Systems - Review of Systems Constitutional: denies: Chills, Fever EENT: See HPI Cardiovascular: No symptoms reported Respiratory: No symptoms reported Gastrointestinal: No symptoms reported Genitourinary: No symptoms reported Male Genitourinary: No symptoms reported Musculoskeletal: No symptoms reported Skin: No symptoms reported Hematologic/Lymphatic: No symptoms reported Neurological/Psychological: No symptoms reported Physical Exam - Vital signs Vitals: Temp Pulse Resp BP Pulse Ox 98.6 F 77 14 163/89 H 95 06/30/17 12:03 06/30/17 12:03 06/30/17 12:03 06/30/17 12:03 06/30/17 12:03 Notes: Physical exam: GENERAL: She is alert and oriented 3. Blood pressure 163/70 with a pulse of 85 , respirations 20 HEAD: Atraumatic, normocephalic. EYES: Pupils equal round and reactive to light, extraocular movements intact, sclera anicteric, conjunctiva are normal. ENT: Right nare: No active bleeding. Left nare: Active bleeding with clot. NECK: Normal range of motion, supple without obvious mass LUNGS: Breath sounds clear to auscultation bilaterally and equal. No wheezes rales or rhonchi. HEART: Irregularly irregular, pulse in the 80s ABDOMEN: Soft, normoactive bowel sounds. No tenderness to palpation. No guarding, no rebound. No masses appreciated. EXTREMITIES: Normal range of motion, no pitting or edema. No clubbing or cyanosis. NEUROLOGICAL: Cranial nerves II through XII grossly intact. Normal speech, moving all extremities. PSYCH: Normal mood, normal affect. SKIN: Warm, Dry, normal turgor, no rashes or lesions noted. Course - Re-evaluation Re-evalutation: 06/30/17 12:34 Left nare packed with quick clot and compression held while setting up for ENT lamp/ENT box. I did have patient blow nose to relieve any clots in the left nare. Afrin nasal spray applied. On inspection with the ENT lamp: Bleeding appears to have subsided. There is a suspicious area in the left Kiesselbach plexus but there is no active bleeding from there at this time. Will watch. 06/30/17 19:00 Patient observed few hours in the ER. He has had no further bleeding. Repeat inspection of the naris with the ENT lamp shows no evidence of bleeding. I did speak to the patient's assembler for puller over hand (Dr. vizcarra in [place]) and he did recommend stopping the aspirin. I do not think that stopping the aspirin now will have a significant effect in the next few days, therefore I discussed this with the patient, and we will also decrease his Eliquis 2.5 mg twice daily. The patient does have some underlying chronic kidney disease and this may be a more appropriate dose. He has had several episodes of the nasal bleeding for the past few weeks while on this regimen of Eliquis and aspirin. I have given him a referral to an ENT doctor. The patient does state that he is going to be living in this area now, so I have given him a referral to both a assembler for puller over hand as well as a primary care doctor. - Vital Signs Vital signs: Temp Pulse Resp BP Pulse Ox 98.5 F 64 18 105/46 L 92 06/30/17 16:30 06/30/17 16:30 06/30/17 16:30 06/30/17 16:30 06/30/17 16:30 - Laboratory Result Diagrams: 06/30/17 12:15 06/30/17 12:15 Laboratory results interpreted by me: 06/30/17 06/30/17 12:15 12:15 RBC 5.64 H RDW 16.1 H Potassium 5.1 H Carbon Dioxide 33 H BUN 30 H Est GFR (Non-Af Amer) 58 L Discharge - Discharge Clinical Impression: Epistaxis Condition: Stable Disposition: HOME, SELF-CARE Additional Instructions: Thank you for choosing [facility] for your care. The examination and treatment you have received in the Emergency Department today has been rendered on an emergency basis only and is not intended to be a substitute for complete medical care. You should contact your doctor as it is important that she/he examine you for any new or remaining problems. If given a copy of any lab tests or radiology reports, please bring them with you when you see your physician. If your problem worsens or new symptoms appear and you are unable to arrange prompt follow-up care, return to the Emergency Department. Specific signs to look out for: Worsening bleeding Any other instructions: As we discussed, stop taking the aspirin. Restart the Eliquis in the morning: Take a half tablet (2.5 mg) twice daily. It is important that you follow-up with a assembler for puller over hand: I wrote the number for Dr. Medina on the front of the chart. It is important to follow-up with a primary care doctor: I left the number for 3 below. You should follow-up with an ENT doctor because he is repeat nosebleeds: I left the number below Primary Care Doctor's affiliated with [facility]: If you do not have a primary care doctor or you are unable to get an appointment during that time, you can try one of the doctor's below. These are internal medicine doctor's that have admitting priveledges to the hospital ( they will see you both in the office as well as in this hospital if you are ever hospitalized here). Dr. Kassy Carlton [place] [address], [place] [address] [phone] Dr Moreno Address: [address] [place] [address] , [place] [address] Follow-up with an ENT Doctor: [facility] [place] [id number] [facility] [place] [address] Toll Free: Referrals: ROSLYN MEDINA MD [ACTIVE STAFF] - Follow up as needed (This is the number the assembler for puller over hand)
[2017-06-30 15:12] LABS: ABSOLUTE BASOPHILS # (AUTO) 0.1 10^3/uL (0.0-0.2); ABSOLUTE EOSINOPHILS # (AUTO) 0.1 10^3/uL (0.0-0.6); ABSOLUTE MONOCYTES (AUTO) 0.6 10^3/uL (0.1-1.4); ABSOLUTE NEUT (AUTO) 5.4 10^3/uL (1.7-8.2); BASOPHILS % (AUTO) 0.8 % (0-2); EOSINOPHILS % (AUTO) 1.7 % (0-6); HEMATOCRIT 48.5 % (37.9-51.0); HEMOGLOBIN 15.7 g/dL (13.5-17.0); LYMPHOCYTES % (AUTO) 13.6 % (13-45); MEAN CORPUSCULAR HEMOGLOBIN 27.8 pg (27.0-33.4); MEAN CORPUSCULAR HGB CONC 32.3 g/dL (32.0-36.0); MEAN CORPUSCULAR VOLUME 86 fl (80-97); MONOCYTES % (AUTO) 8.9 % (3-13); PLATELET COUNT 230 10^3/uL (150-450); RED BLOOD COUNT 5.64 10^6/uL (4.35-5.55); RED CELL DISTRIBUTION WIDTH 16.1 % (11.5-14.0); TOTAL CELLS COUNTED % (AUTO) 100 %; WHITE BLOOD COUNT 7.1 10^3/uL (4.0-10.5)
[2017-06-30 15:28] LABS: ALANINE AMINOTRANSFERASE 30 U/L (21-72); ALBUMIN 4.2 g/dL (3.5-5.0); ALKALINE PHOSPHATASE 46 U/L (38-126); ANION GAP 9 (5-19); ASPARTATE AMINO TRANSFERASE 29 U/L (17-59); BILIRUBIN,DIRECT 0.3 mg/dL (0.0-0.4); BILIRUBIN,TOTAL 0.6 mg/dL (0.2-1.3); BLOOD UREA NITROGEN 30 mg/dL (7-20); CALCIUM 10.1 mg/dL (8.4-10.2); CARBON DIOXIDE 33 mmol/L (22-30); CHLORIDE 99 mmol/L (98-107); GLUCOSE 98 mg/dL (75-110); POTASSIUM 5.1 mmol/L (3.6-5.0); SODIUM 140.9 mmol/L (137-145)
[2017-06-30 16:42] VITALS: BP 105/46
== END 2017-06-30 16:41 | disposition home or self-care (01) ==
LOC: ER 11:50
DX: R04.0 Epistaxis (principal); J44.9 Chronic obstructive pulmonary disease, unspecified; I48.91 Unspecified atrial fibrillation; Z79.02 Long term (current) use of antithrombotics/antiplatelets; Z87.891 Personal history of nicotine dependence
CPT/HCPCS: 99283; 96374; 36415; 85025; 80053; A9270; J3490; J2405

== ENCOUNTER 2017-12-17 20:57 | Inpatient (IN) | payer MEDICARE, OTHER ==
[~2017-12-17 20:57] MED LIST: ROCURONIUM BROMIDE INJ 50 MG/5 ML VIAL IV ONE
[2017-12-17] MEDS ORDERED: METHYLPREDNISOLONE INJ 125 MG/2 ML SDV IV ONE (21:21)
[2017-12-17] MEDS ORDERED: IPRATROPIUM/ALBUTEROL 0.5-2.5 MG/3 ML AMPUL NEB ONE ×4 (21:21→22:35)
--- NOTE | 2017-12-17 21:24 | ER Document Report ---
ED Respiratory Problem - General Chief Complaint: Shortness Of Breath Stated Complaint: BREATHING PROBLEM Time Seen by Provider: 12/17/17 21:16 Notes: Patient is a 72-year-old male with a history of COPD that comes to the emergency department for chief complaint of shortness of breath, he states this has been worsening for the past 2 weeks, he reports mild intermittent cough, denies fever, denies chest pain. He denies lower extremity swelling. Past medical history of CAD, NM, pacemaker, and he is on Eliquis. He does not think he has A. fib. Former smoker. He is not on oxygen at home. Patient denies history of intubation, he has not been admitted to the hospital within the past 3 months per his report. TRAVEL OUTSIDE OF THE [place] IN LAST 30 DAYS: No - Related Data Allergies/Adverse Reactions: No Known Allergies Allergy (Verified 06/30/17 11:51) Past Medical History - General Information source: Patient - Social History Smoking Status: Former Smoker Frequency of alcohol use: None Drug Abuse: None Lives with: Family Family History: Reviewed & Not Pertinent Patient has suicidal ideation: No Patient has homicidal ideation: No - Past Medical History Cardiac Medical History: Reports: Hx Atrial Fibrillation, Hx Congestive Heart Failure, Hx Coronary Artery Disease, Hx Heart Attack, Hx Hypercholesterolemia Pulmonary Medical History: Reports: Hx COPD Renal/ Medical History: Reports: Hx Renal Insufficiency - Running kidney disease. Denies: Hx Peritoneal Dialysis GI Medical History: Reports: Hx Gastroesophageal Reflux Disease Past Surgical History: Reports: Hx Appendectomy, Hx Cholecystectomy, Hx Genitourinary Surgery - Urethral stricture laser and dilatation in the past, Hx Orthopedic Surgery - rt hip Review of Systems - Review of Systems Constitutional: No symptoms reported EENT: No symptoms reported Cardiovascular: See HPI Respiratory: See HPI Gastrointestinal: No symptoms reported Genitourinary: No symptoms reported Male Genitourinary: No symptoms reported Musculoskeletal: No symptoms reported Skin: No symptoms reported Hematologic/Lymphatic: No symptoms reported Neurological/Psychological: No symptoms reported Physical Exam - Vital signs Vitals: Resp Pulse Ox 19 92 12/17/17 21:20 12/17/17 21:20 - Notes Notes: GENERAL: Alert, interacts well. No acute distress. HEAD: Normocephalic, atraumatic. EYES: Pupils equal, round, and reactive to light. Extraocular movements intact. ENT: Oral mucosa moist, tongue midline. NECK: Full range of motion. Supple. Trachea midline. LUNGS: Decreased breath sounds bilaterally, expiratory wheezes bilaterally, no rales or rhonchi noted. Borderline tachypnea, no labored breathing. HEART: Regular rate and rhythm. No murmur ABDOMEN: Soft, non-tender. Non-distended. Bowel sounds present in all 4 quadrants. EXTREMITIES: Moves all 4 extremities spontaneously. No edema, normal radial and dorsalis pedis pulses bilaterally. No cyanosis. BACK: no cervical, thoracic, lumbar midline tenderness. No saddle anesthesia, normal distal neurovascular exam. NEUROLOGICAL: Alert and oriented x3. Normal speech. [cranial nerves II through XII grossly intact]. PSYCH: Normal affect, normal mood. SKIN: Warm, dry, normal turgor. No rashes or lesions noted. Course - Re-evaluation Re-evalutation: 12/17/17 21:20 On my evaluation patient is already on nasal cannula, his oxygen saturation is 95% on 3 L nasal cannula, he is not on oxygen at home. Initial oxygen saturation of 78 according to chart, nurse reports it was 88% on room air when he was placed on the monitor, reports this rapidly improved on oxygen. He is able to speak without difficulty, he has mild borderline tachypnea, has decreased breath sounds with expiratory wheezing, initiating duo nebs, Solu- Medrol, magnesium, will closely monitor. Patient reporting his breathing is improved, however he states he is suddenly nauseated. He denies chest pain, dizziness, or any other symptoms at this time. He has the same breathing at this time. Giving zofran. 12/17/17 22:30 After zofran patient suddenly broke out into a sweat, started to have respiratory distress with labored breathing and tachypnea, he became hypoxic. Placed on non-rebreather, Dr. Chiu to bedside. He did not improve while on bipap, continued hypoxic in the 80s and developed cyanosis. RSI was performed. Labs resulted. CBC shows mild microcytic anemia, no leukocytosis, chemistry shows mildly elevated creatinine with no comparison, potassium of 5.1. Troponin indeterminate 0.75, chest x-ray still with results pending without significant change from prior. Venous blood gas showing respiratory failure with pH of 7.16 and CO2 of 97. 12/17/17 23:05 Patient is doing well on the ventilator, blood pressure has normalized, oxygen saturation is normal, he is still sedated from the initial ketamine, will place on ketamine for sedation. Discussed with in detail. Will discuss with hospitalist for admission. Patient became mildly hypotensive, given 500 cc fluid bolus, this did resolve his hypotension. Does not appear to be breath stacking on the vent. Discussed with Dr. Hernandes, hospitalist, patient will be admitted to the ICU. - Vital Signs Vital signs: Temp Pulse Resp BP Pulse Ox 20 122/72 90 L 12/18/17 00:45 12/18/17 00:45 12/18/17 00:45 - Laboratory Result Diagrams: 12/17/17 21:50 12/17/17 21:50 Laboratory results interpreted by me: 12/17/17 12/17/17 12/17/17 21:50 21:50 21:50 RBC 5.85 H Hgb 13.0 L MCV 73 L MCH 22.3 L MCHC 30.4 L RDW 17.4 H VBG pH 7.16 L* VBG pCO2 97.7 H* VBG HCO3 34.3 H Potassium 5.1 H Chloride 95 L Carbon Dioxide 33 H BUN 25 H Creatinine 1.36 H Est GFR (Non-Af Amer) 51 L Procedures - Intubation Orotracheal Airway evaluation: Normal anatomy Mallampati Classification: Class 1 Medications: Ketamine Intubation method: Orotracheal Blade type: Mary Blade size: 4 Equipment used: Glidescope ETT size: 7.5 ETT secured at: Gums ETT secured at (cm): 24 Breath Sounds after Intubation: Equal End tidal CO2 confirmed: Yes Post Intubation Xray: Yes Intubation Complications: No complications Critical Care Note - Critical Care Note Total time excluding time spent on procedures (mins): 50 - respiratory failure, COPD exacerbation Comments: Please allow 50 minutes of critical care time excluding any procedures for evaluation and treatment of patient with acute respiratory failure, requiring multiple treatments and evaluations. Time spent discussing with family member. Consultation and admission to the ICU. Discharge - Discharge Clinical Impression: Hypoxia, Acute on chronic respiratory failure with hypoxia and hypercapnia Acute respiratory failure Qualifiers: Respiratory failure complication: hypoxia and hypercapnia Qualified Code(s): J96.01 - Acute respiratory failure with hypoxia Condition: Serious Disposition: ADMITTED INPATIENT Admitting Provider: Hospitalist Unit Admitted: ICU
[2017-12-17] MEDS: MAGNESIUM SULFATE/D5W 1 GM/100 ML RTUPB IV SCH (21:58)
[2017-12-17 22:02] LABS: ABSOLUTE BASOPHILS # (AUTO) 0.1 10^3/uL (0.0-0.2); ABSOLUTE EOSINOPHILS # (AUTO) 0.2 10^3/uL (0.0-0.6); ABSOLUTE LYMPHOCYTES (AUTO) 0.9 10^3/uL (0.5-4.7); ABSOLUTE MONOCYTES (AUTO) 0.6 10^3/uL (0.1-1.4); ABSOLUTE NEUT (AUTO) 4.7 10^3/uL (1.7-8.2); BASOPHILS % (AUTO) 1.1 % (0-2); EOSINOPHILS % (AUTO) 2.4 % (0-6); HEMATOCRIT 42.9 % (37.9-51.0); LYMPHOCYTES % (AUTO) 13.3 % (13-45); MEAN CORPUSCULAR HEMOGLOBIN 22.3 pg (27.0-33.4); MEAN CORPUSCULAR HGB CONC 30.4 g/dL (32.0-36.0); MEAN CORPUSCULAR VOLUME 73 fl (80-97); MONOCYTES % (AUTO) 9.9 % (3-13); PLATELET COUNT 256 10^3/uL (150-450); RED BLOOD COUNT 5.85 10^6/uL (4.35-5.55); RED CELL DISTRIBUTION WIDTH 17.4 % (11.5-14.0); SEGMENTED NEUTROPHILS % (AUTO) 73.3 % (42-78); TOTAL CELLS COUNTED % (AUTO) 100 %; WHITE BLOOD COUNT 6.5 10^3/uL (4.0-10.5)
[2017-12-17] MEDS ORDERED: ONDANSETRON HCL INJ/PF 4 MG/2 ML SDV IV ONE (22:15)
[2017-12-17 22:28] LABS: VENOUS BLOOD BASE EXCESS 2.4 mmol/L; VENOUS BLOOD HCO3 34.3 mmol/L (20-32)
[2017-12-17 22:29] LABS: ALANINE AMINOTRANSFERASE 32 U/L (21-72); ALBUMIN 4.1 g/dL (3.5-5.0); ALKALINE PHOSPHATASE 38 U/L (38-126); ANION GAP 10 (5-19); ASPARTATE AMINO TRANSFERASE 35 U/L (17-59); BILIRUBIN,DIRECT 0.3 mg/dL (0.0-0.4); BILIRUBIN,TOTAL 0.5 mg/dL (0.2-1.3); BLOOD UREA NITROGEN 25 mg/dL (7-20); CALCIUM 9.1 mg/dL (8.4-10.2); CARBON DIOXIDE 33 mmol/L (22-30); CHLORIDE 95 mmol/L (98-107); GLUCOSE 101 mg/dL (75-110); POTASSIUM 5.1 mmol/L (3.6-5.0); SODIUM 137.5 mmol/L (137-145); TOTAL PROTEIN 7.2 g/dL (6.3-8.2)
[2017-12-17 22:31] LABS: VENOUS BLOOD PH 7.16 (7.30-7.42)
[2017-12-17 22:32] LABS: VENOUS BLOOD PCO2 97.7 mmHg (35-63)
[2017-12-17] MEDS ORDERED: ETOMIDATE INJ/PF 20 MG/10 ML SDV IV ONE (22:37)
[2017-12-17] MEDS ORDERED: KETAMINE HCL INJ 500 MG/10 ML VIAL ONE ×2 (22:39→23:03)
[2017-12-17] MEDS ORDERED: PROPOFOL 0 MG/0 ML INFUS..BTL IV ONE (22:42)
[2017-12-17] MEDS ORDERED: LEVOFLOXACIN 750 MG/D5W RTU 750 MG/150 ML RTUPB IV ONE (22:52)
[2017-12-17] MEDS ORDERED: KETAMINE HCL INJ 500 MG/10 ML VIAL IV ONE (22:57)
--- NOTE | 2017-12-17 23:12 | RADIOLOGY REPORT (SQ) ---
EXAM DESCRIPTION: XR CHEST 1 VIEW COMPLETED DATE/TME: 12/17/2017 21:21 CLINICAL HISTORY: 72 years, Male, hypoxia, shortness of breath Findings: Heart is moderately enlarged. Right chest dual-lead pacemaker. No consolidation or pleural effusion. No pulmonary edema or pneumothorax. IMPRESSION: No acute disease.
--- NOTE | 2017-12-17 23:13 | RADIOLOGY REPORT (SQ) ---
EXAM DESCRIPTION: XR CHEST 1 VIEW COMPLETED DATE/TME: 12/17/2017 00:00 CLINICAL HISTORY: 72 years, Male, post intubation Compared to 12/17/2017 at 9:40 PM. FINDINGS: Significant tube is in appropriate placement with tip about 4 cm above the serge. Enteric tube is in place with tip below the diaphragm in the stomach. No consolidation or pleural effusion. No pneumothorax. IMPRESSION: Endotracheal tube in place.
--- NOTE | 2017-12-17 23:31 | ER Document Report ---
Doctor's Note Notes: 12/17/17 23:00 Documentation is delayed as I was at this patient's bedside continuously for approximately 30-35 minutes after being called to the room for assistance by the physician assistant professor of anthropology caring for the patient. In summary this patient had rapid deterioration of his condition after presenting for what appear to be a relatively mild COPD exacerbation. The patient was doing well after receiving multiple nebulizers, no longer required supplement oxygenation that abruptly over the course of 1 to minutes became hypoxic and altered. At this point I was called to the room. The patient was immediately started on BiPAP, relatively quickly transitioned to supplemental ventilation with Ambu bag. It was clear the patient would not be successful on noninvasive positive pressure ventilation. 150 mg of ketamine was given for induction as well as respiratory expansion. The patient continued to be ventilated without difficulty although remained quite hypoxic. Intubation was completed on first pass success. Patient medially had significant improvement of his saturations after being intubated. Presentation chest x-ray unremarkable. Patient was noted to be quite hypertensive prior to intubation. This rapidly resolved post intubation. Given the abrupt nature onset, a pleural ultrasound was obtained that did not show any evidence of pulmonary edema. A CT of the chest will be completed to evaluate for the possibility of an acute pulmonary embolus 2330 Patient continues to ventilate well on the vent. Remains without tachycardia, mild hypotension noted. The case was discussed with Dr. Lam by the physician assistant professor of anthropology and she has excepted the patient. Critical Care Note - Critical Care Note Total time excluding time spent on procedures (mins): 37 Comments: Critical care time spent obtaining history from patient or surrogate, discussions with consultants, development of treatment plan with patient or surrogate, evaluation of patient's response to treatment, examination of patient , ordering and performing treatments and interventions, ordering and review of laboratory studies, re-evaluation of patient's condition, ordering and review of radiographic studies and review of old charts Procedures - Intubation Orotracheal Airway evaluation: Normal anatomy Mallampati Classification: Class 1 Medications: Ketamine, Other - Rocuronium Intubation method: Orotracheal Blade type: Mary Blade size: 4 Equipment used: Glidescope ETT size: 8.0 ETT secured at: Gums ETT secured at (cm): 23 Breath Sounds after Intubation: Equal End tidal CO2 confirmed: Yes Ventilator settings: SIMV Tidal volume: 450 FiO2: 40 Respirations: 16 PEEP: 5 Post Intubation Xray: Yes Intubation Complications: No complications
[2017-12-17] MEDS ORDERED: ACETAMINOPHEN 325 MG TABLET PO PRN (23:41)
[2017-12-17] MEDS ORDERED: IPRATROPIUM/ALBUTEROL 0.5-2.5 MG/3 ML AMPUL NEB PRN (23:41)
[2017-12-18] MEDS ORDERED: LEVOFLOXACIN 750 MG/D5W RTU 750 MG/150 ML RTUPB IV ONE
--- NOTE | 2017-12-18 00:16 | PDOC H&P ---
History of Present Illness Admission Date/PCP: 12/17/17 23:44 None Patient complains of: Shortness of breath History of Present Illness: ALEX MALLORY is a 72 year old male with history of COPD not on home oxygen who has been intubated in the emergency department. Unable to obtain information from him and his girlfriend has left home. As per ED attending note the patient came to the emergency department complaining of shortness of breath has been going on for the last 2 weeks with mild intermittent cough, patient has a pulse oximeter at home was reading in the 70s, apparently the patient has been having intermittent bouts of confusion before coming to the hospital. He denies fever, chest pain, lower extremity swelling. Patient is on Eliquis. Patient is former smoker about 20 years ago. In the emergency department initial oxygen saturation was 88%, the patient was wheezing, was given nebulizer treatments and IV magnesium, apparently initially was doing well but suddenly his oxygen saturation dropped to the 70s, patient was placed on nonrebreather and despite oxygen saturation was dropping even more , was very confused and started picking on his hands, suddenly patient turned cyanotic. Decision was made to emergently intubate him and place him on mechanical ventilator. Currently on ketamine infusion Noncompliance with medications and a CTA was placed to rule out acute pulmonary embolism. Blood pressure was borderline and it was decided to give 500 mL normal saline bolus. Past Medical History Cardiac Medical History: Reports: Atrial Fibrillation, Congestive Heart Failure , Coronary Artery Disease, Myocardial Infarction, Hyperlipidema Pulmonary Medical History: Reports: Chronic Obstructive Pulmonary Disease (COPD) GI Medical History: Reports: Gastroesophageal Reflux Disease Past Surgical History Past Surgical History: Reports: Appendectomy, Cholecystectomy, Orthopedic Surgery - rt hip Social History Lives with: Family Smoking Status: Former Smoker - Quit about 20 years ago Frequency of Alcohol Use: Social Hx Recreational Drug Use: No Drugs: None Hx Prescription Drug Abuse: No Past Social History Note: Moved from [place] a year ago Family History Family History: Reviewed & Not Pertinent Parental Family History Reviewed: No - Unable to obtain Children Family History Reviewed: NA Sibling(s) Family History Reviewed.: NA Medication/Allergy Home Medications: Apixaban [Eliquis 5 mg Tablet] 5 mg PO BID 05/10/17 Clonazepam [Klonopin 1 mg Tablet] 1 mg PO QHS 05/10/17 Ergocalciferol (Vitamin D2) [Vitamin D2] 2,000 units PO DAILY 05/10/17 Esomeprazole Magnesium [Nexium] 40 mg PO DAILY 05/10/17 Ezetimibe [Zetia 10 mg Tablet] 10 mg PO DAILY 05/10/17 Fenofibrate Nanocrystallized [Tricor 145 mg Tablet] 145 mg PO DAILY 05/10/17 Isosorbide Mononitrate [Imdur 30 mg Tablet.er] 30 mg PO DAILY 05/10/17 Nitroglycerin [Nitrostat 0.4 mg (1/150 Gr) Tabs 25/Bottle] 1 tab SL Q5MP PRN 03/15 Polyethylene Glycol 3350 [Miralax] 1 dose PO DAILY 05/10/17 Sennosides/Docusate 8.6-50 mg [Senna Plus Tablet] 2 tab PO DAILY 05/10/17 Temazepam [Restoril] 30 mg PO QHS 05/10/17 Albuterol Sulfate [Proair HFA Inhalation Aerosol 8.5 gm MDI] 2 puff IH Q4HP PRN #1 hfa.aer.ad 05/16/17 Apixaban [Eliquis 5 mg Tablet] 5 mg PO BID tablet 05/16/17 Aspirin [Aspirin 81 mg Chewable Tablet] 81 mg PO DAILY tab.chew 05/16/17 Clonazepam [Klonopin 1 mg Tablet] 0.5 mg PO QHS tablet 05/16/17 Ezetimibe [Zetia 10 mg Tablet] 10 mg PO QHS tablet 05/16/17 Fenofibrate Nanocrystallized [Tricor 145 mg Tablet] 145 mg PO QHS tablet Folic Acid [Folvite 1 mg Tablet] 1 mg PO DAILY tablet 05/16/17 Isosorbide Mononitrate [Imdur 30 mg Tablet.er] 30 mg PO DAILY tab.er.24h Lansoprazole [Prevacid 30 mg Odt Tablet] 30 mg PO Q6AM tab.rap.dr 05/16/17 Nitroglycerin [Nitrostat 0.4 mg (1/150 Gr) Tabs 25/Bottle] 1 tab SL Q5MP PRN bottle 05/16/17 Prednisone [Deltasone 10 mg Tablet] 10 mg PO DAILY 3 Days #3 tablet 05/16/17 Temazepam [Restoril 7.5 mg Capsule] 7.5 mg PO QHS capsule 05/16/17 Allergies/Adverse Reactions: No Known Allergies Allergy (Verified 06/30/17 11:51) Review of Systems Review of Systems: Unable to obtain as patient is intubated on mechanical ventilator Physical Exam Additional comments: General appearance: Well-developed, obese, on mechanical ventilator Head: Normocephalic Eyes: PEERL. Ears: External auditory canal and tympanic membranes clear. Nose : No nasal discharge. Throat: Oral cavity and pharynx normal. No inflammation , swelling, exudate or lesions. Neck: Neck supple, nontender without lymphadenopathy, masses or thyromegaly. Cardiac: Normal S1 and S2. No S3, S4 or murmurs. Rhythm is regular. There is no peripheral edema, cyanosis or pallor. Extremities are warm and well perfused. Capillary refill is less than 2 seconds. No carotid bruits. Lungs: Clear to auscultation and percussion without rales, rhonchi, wheezing, bilateral diminished breath sounds. Not using accessory muscles. Abdomen: Positive bowel sounds. Soft. Nondistended, nontender. No guarding or rebound. No masses. No hepatosplenomegaly Extremities: No significant deformity or joint abnormality. No edema. Peripheral pulses intact. No varicosities. Neurological: Unable to evaluate Skin: Skin normal color, texture and turgor with no lesions or eruptions, warm and dry. Psychiatric: Unable to evaluate Results Laboratory Results: 04/29/16 12/17/17 12/17/17 14:00 21:50 21:50 WBC 6.5 RBC 5.85 H Hgb 13.0 L Hct 42.9 MCV 73 L MCH 22.3 L MCHC 30.4 L RDW 17.4 H Plt Count 256 Seg Neutrophils % 73.3 Lymphocytes % 13.3 Monocytes % 9.9 Eosinophils % 2.4 Basophils % 1.1 Absolute Neutrophils 4.7 Absolute Lymphocytes 0.9 Absolute Monocytes 0.6 Absolute Eosinophils 0.2 Absolute Basophils 0.1 VBG pH VBG pCO2 VBG HCO3 VBG Base Excess Sodium 137.5 Potassium 5.1 H Chloride 95 L Carbon Dioxide 33 H Anion Gap 10 BUN 25 H Creatinine 1.36 H Est GFR ( Amer) > 60 Est GFR (Non-Af Amer) 51 L Glucose 101 Calcium 9.1 Total Bilirubin 0.5 Direct Bilirubin 0.3 AST 35 ALT 32 Alkaline Phosphatase 38 Troponin I Total Protein 7.2 Albumin 4.1 Urine Color YELLOW Urine Appearance CLEAR Urine pH 5.0 Ur Specific [place] 1.017 Urine Protein NEGATIVE Urine Glucose (UA) NEGATIVE Urine Ketones NEGATIVE Urine Blood SMALL H Urine Nitrite NEGATIVE Urine Bilirubin NEGATIVE Urine Urobilinogen NEGATIVE Ur Leukocyte Esterase NEGATIVE Urine WBC (Auto) 1 Urine RBC (Auto) 1 Urine Mucus (Auto) RARE Urine Ascorbic Acid NEGATIVE 12/17/17 12/17/17 21:50 21:50 WBC RBC Hgb Hct MCV MCH MCHC RDW Plt Count Seg Neutrophils % Lymphocytes % Monocytes % Eosinophils % Basophils % Absolute Neutrophils Absolute Lymphocytes Absolute Monocytes Absolute Eosinophils Absolute Basophils VBG pH 7.16 L* VBG pCO2 97.7 H* VBG HCO3 34.3 H VBG Base Excess 2.4 Sodium Potassium Chloride Carbon Dioxide Anion Gap BUN Creatinine Est GFR ( Amer) Est GFR (Non-Af Amer) Glucose Calcium Total Bilirubin Direct Bilirubin AST ALT Alkaline Phosphatase Troponin I 0.075 Total Protein Albumin Urine Color Urine Appearance Urine pH Ur Specific [place] Urine Protein Urine Glucose (UA) Urine Ketones Urine Blood Urine Nitrite Urine Bilirubin Urine Urobilinogen Ur Leukocyte Esterase Urine WBC (Auto) Urine RBC (Auto) Urine Mucus (Auto) Urine Ascorbic Acid Impressions: Chest X-Ray 12/17/17 21:21 IMPRESSION: No acute disease. Assessment & Plan - Diagnosis (1) Acute on chronic respiratory failure with hypoxia and hypercapnia Is this a current diagnosis for this admission?: Yes Plan: atient came with respiratory symptoms, in the emergency department became severely hypoxic and had to be placed on mechanical ventilator. ABG7.16/97/34. Vent settings 500/5/50 (2) Acute renal injury Is this a current diagnosis for this admission?: Yes Plan: BUN 25 and creatinine 1.36, likely prerenal secondary to dehydration. Continue with IV fluids. (3) COPD with exacerbation Is this a current diagnosis for this admission?: Yes Plan: Continue full mechanical ventilator on ketamine infusion for sedation. IV Levaquin. Solu-Medrol 80 mg every 8 hours. Nebulizer treatment with DuoNeb as needed. Sputum culture. CTA chest order. Please follow blood cultures. (4) Chronic anticoagulation Is this a current diagnosis for this admission?: Yes Plan: [place] secondary to atrial fibrillation, patient does not know why he is on anticoagulation. On Eliquis (5) Hypertension Qualifiers: Hypertension type: unspecified Qualified Code(s): I10 - Essential (primary ) hypertension Is this a current diagnosis for this admission?: Yes Plan: We are going to hold antihypertensive medications, patient with borderline hypotension. (6) Coronary artery disease Is this a current diagnosis for this admission?: Yes Plan: We are going to cycle cardiac enzymes 3. Will resume antiplatelet therapy. - Time Time Spent: 30 to 50 Minutes - Inpatient Certification Based on my medical assessment, after consideration of the patient's comorbidities, presenting symptoms, or acuity I expect that the services needed warrant INPATIENT care.: Yes I certify that my determination is in accordance with my understanding of Medicare's requirements for reasonable and necessary INPATIENT services [42 CFR 412.3e].: Yes Medical Necessity: Risk of Complication if Not Cared For in Hospital
[2017-12-18] MEDS ORDERED: KETAMINE HCL INJ 500 MG/10 ML VIAL IV SCH (00:35)
--- NOTE | 2017-12-18 00:40 | RADIOLOGY REPORT (SQ) ---
PROCEDURE: CT angiography chest with contrast COMPLETED DATE/TME: 12/17/2017 22:49 CLINICAL HISTORY: 72 years Male hypoxia, sudden onset distress and diff. Breathing COMPARISON: None. TECHNIQUE: Contiguous axial images were obtained through the chest during the infusion of IV contrast. Reformatted images obtained. MIP reformatted images obtained. This exam was performed according to our department optimization program which includes automated exposure control, adjustment of the mA and/or kv according to patient size and/or use of iterative reconstruction technique. FINDINGS: No evidence of pulmonary embolus. Calcification in the coronary arteries and aorta. There is dependent atelectasis in the upper and lower lobes. No significant thoracic adenopathy. No evidence of pericardial or pleural effusion. Nasogastric and endotracheal tubes in place. IMPRESSION:No evidence of pulmonary embolus Dependent atelectasis in the lower lobes and posterior aspects of the upper lobes bilaterally. Small amount of associated infiltrate in the lung bases cannot be entirely excluded on the basis of this exam
[2017-12-18] MEDS: NORMAL SALINE 1000 ML 1,000 ML IV PRN ×2 (00:53→12:26)
[2017-12-18] MEDS ORDERED: FENTANYL CITRATE INJ/PF 100 MCG/2 ML AMPUL ONE (01:15)
[2017-12-18] MEDS ORDERED: FENTANYL CITRATE INJ/PF 100 MCG/2 ML AMPUL IV ONE (01:36)
[2017-12-18] MEDS ORDERED: PROPOFOL 1,000 MG/100 ML INFUS..BTL IV ONE (01:44)
[2017-12-18] MEDS: PROPOFOL 1,000 MG/100 ML INFUS..BTL IV PRN ×8 (01:55→23:30)
[2017-12-18] MEDS ORDERED: MIDAZOLAM HCL 50 MG/100 ML RTUINJ IV PRN (02:58)
[2017-12-18 04:27] LABS: INTERNATIONAL RATION (INR) 1.27; PROTHROMBIN TIME 16.6 SEC (11.4-15.4)
[2017-12-18 04:28] LABS: PARTIAL THROMBOPLASTIN TIME 31.4 SEC (23.5-35.8)
[2017-12-18 04:33] LABS: HEMATOCRIT 40.7 % (37.9-51.0); HEMOGLOBIN 12.5 g/dL (13.5-17.0); MEAN CORPUSCULAR HEMOGLOBIN 22.3 pg (27.0-33.4); MEAN CORPUSCULAR HGB CONC 30.7 g/dL (32.0-36.0); MEAN CORPUSCULAR VOLUME 73 fl (80-97); PLATELET COUNT 196 10^3/uL (150-450); RED BLOOD COUNT 5.61 10^6/uL (4.35-5.55); RED CELL DISTRIBUTION WIDTH 17.7 % (11.5-14.0); WHITE BLOOD COUNT 5.5 10^3/uL (4.0-10.5)
[2017-12-18 04:47] LABS: ALANINE AMINOTRANSFERASE 31 U/L (21-72); ALBUMIN 3.7 g/dL (3.5-5.0); ALKALINE PHOSPHATASE 37 U/L (38-126); ANION GAP 9 (5-19); ASPARTATE AMINO TRANSFERASE 27 U/L (17-59); BILIRUBIN,DIRECT 0.5 mg/dL (0.0-0.4); BILIRUBIN,TOTAL 0.6 mg/dL (0.2-1.3); BLOOD UREA NITROGEN 25 mg/dL (7-20); CARBON DIOXIDE 30 mmol/L (22-30); CHLORIDE 97 mmol/L (98-107); GLUCOSE 120 mg/dL (75-110); POTASSIUM 4.7 mmol/L (3.6-5.0); SODIUM 135.8 mmol/L (137-145); TOTAL PROTEIN 6.4 g/dL (6.3-8.2)
[2017-12-18 04:50] LABS: ABSOLUTE LYMPHOCYTES# (MANUAL) 0.2 10^3/uL (0.5-4.7); ABSOLUTE MONOCYTES # (MANUAL) 0.2 10^3/uL (0.1-1.4); ABSOLUTE NEUTROPHILS# (MANUAL) 5.1 10^3/uL (1.7-8.2); BASOPHILS % (MANUAL) 0 % (0-2); EOSINOPHILS % (MANUAL) 0 % (0-6); LYMPHOCYTES % (MANUAL) 4 % (13-45); MONOCYTES % (MANUAL) 4 % (3-13); SEGMENTED NEUTROPHILS % (MAN) 92 % (42-78); TOTAL CELLS COUNTED 100
[2017-12-18 04:56] LABS: ANISOCYTOSIS 1+; HYPOCHROMASIA SLIGHT; PLATELET COMMENT ADEQUATE; POLYCHROMASIA SLIGHT
[2017-12-18] MEDS: METHYLPREDNISOLONE INJ 40 MG/1 ML SDV IV SCH ×3 (06:08→23:30)
[2017-12-18 06:40] LABS: ARTERIAL BLOOD BASE EXCESS 5.2 mmol/L; ARTERIAL BLOOD H2CO3 1.12 mmol/L (1.05-1.35); ARTERIAL BLOOD HCO3 28.5 mmol/L (20-24); ARTERIAL BLOOD O2 SATURATION 93.3 % (94-98); ARTERIAL BLOOD PCO2 37.2 mmHg (35-45); ARTERIAL BLOOD PO2 60.7 mmHg (80-100); ARTERIAL BLOOD TOTAL CO2 29.6 mmol/L (23-27)
[2017-12-18 06:41] LABS: ARTERIAL BLOOD FIO2 60%
--- NOTE | 2017-12-18 08:33 | RADIOLOGY REPORT (SQ) ---
EXAM DESCRIPTION: CHEST SINGLE VIEW COMPLETED DATE/TIME: 12/18/2017 6:51 am REASON FOR STUDY: intubated COMPARISON: CT angio chest 05/09/2017, 11/28/2017 Chest films 05/09/2017, 12/17/2017 EXAM PARAMETERS: NUMBER OF VIEWS: One view. TECHNIQUE: Single frontal radiographic view of the chest acquired. RADIATION DOSE: NA LIMITATIONS: None. FINDINGS: LUNGS AND PLEURA: Stable bibasilar airspace disease likely atelectasis. No gross pleural effusion. No pneumothorax. MEDIASTINUM AND HILAR STRUCTURES: No masses. Contour normal. HEART AND VASCULAR STRUCTURES: Heart normal in size. Normal vasculature. BONES: No acute findings. HARDWARE: Endotracheal tube tip 3 cm above the serge. Nasogastric tube tip and side port in the sto mach. Right-sided dual lead pacemaker unchanged OTHER: No other significant finding. IMPRESSION: Tubes in good positioning. Stable bibasilar atelectasis TECHNICAL DOCUMENTATION: JOB ID: [id number] [employer]- All Rights Reserved Reading location - IP/workstation name: [email or web address]
[2017-12-18] MEDS ORDERED: IPRATROPIUM/ALBUTEROL 0.5-2.5 MG/3 ML AMPUL NEB PRN (09:09)
[2017-12-18] MEDS: IPRATROPIUM/ALBUTEROL 0.5-2.5 MG/3 ML AMPUL NEB SCH ×3 (09:43→20:17)
[2017-12-18 10:42] LABS: ARTERIAL BLOOD BASE EXCESS 6.1 mmol/L; ARTERIAL BLOOD H2CO3 1.37 mmol/L (1.05-1.35); ARTERIAL BLOOD O2 SATURATION 92.3 % (94-98); ARTERIAL BLOOD PCO2 45.5 mmHg (35-45); ARTERIAL BLOOD PH 7.45 (7.35-7.45); ARTERIAL BLOOD TOTAL CO2 32.4 mmol/L (23-27)
[2017-12-18] MEDS: PANTOPRAZOLE SODIUM 40 MG VIAL IV SCH (10:42)
[2017-12-18 10:43] LABS: ARTERIAL BLOOD FIO2 60%
[2017-12-18 11:37] LABS: CREATINE KINASE MB 2.22 ng/mL (<4.55); TROPONIN I 0.038 ng/mL
[2017-12-18] MEDS: MAGNESIUM SULFATE/D5W 1 GM/100 ML RTUPB IV SCH (12:24)
[2017-12-18] MEDS: FOLIC ACID 1 MG TABLET PO SCH (12:26)
[2017-12-18] MEDS: APIXABAN 5 MG TABLET PO SCH ×2 (12:26→21:10)
--- NOTE | 2017-12-18 12:38 | EKG REPORT ---
SEVERITY:- ABNORMAL ECG - SINUS RHYTHM NONSPECIFIC IVCD WITH LAD CONSIDER ANTEROSEPTAL INFARCT : Confirmed by: Jayne Lugo MD 18-Dec-2017 12:38:08
--- NOTE | 2017-12-18 15:57 | PDOC PROGRESS REPORT ---
Subjective Progress Note for:: 12/18/17 Subjective:: Patient is unable to speak as he is intubated and sedated. Per his nurse he has had an uneventful morning. He has been calm with unlabored assisted breathing. Ketamine started in the ER has been discontinued and he is being sedated with propofol. He has an OG tube in place. Rest x-ray shows tubes are in good position. Reason For Visit: ACUTE HYPOXIC RESPIRATORY FAILURE, COPD Physical Exam Vital Signs: Temp Pulse Resp BP Pulse Ox 97.9 F 69 16 137/66 H 96 12/18/17 14:00 12/18/17 14:18 12/18/17 15:02 12/18/17 15:02 12/18/17 15:02 Intake & Output 12/17/17 12/18/17 12/19/17 06:59 06:59 06:59 Intake Total 86 1336 Output Total 600 1390 Balance -514 -54 Weight 114.1 kg 114.1 kg General appearance: PRESENT: no acute distress, morbidly obese Head exam: PRESENT: atraumatic Eye exam: PRESENT: conjunctiva pink. ABSENT: scleral icterus Ear exam: PRESENT: normal external ear exam Mouth exam: PRESENT: moist Respiratory exam: PRESENT: decreased breath sounds, unlabored, wheezes. ABSENT : rales, rhonchi Cardiovascular exam: PRESENT: RRR. ABSENT: systolic murmur Vascular exam: PRESENT: normal capillary refill GI/Abdominal exam: PRESENT: normal bowel sounds, soft. ABSENT: distended, tenderness Rectal exam: PRESENT: deferred Gentrourinary exam: PRESENT: indwelling catheter Extremities exam: ABSENT: pedal edema Musculoskeletal exam: ABSENT: ambulatory, deformity Neurological exam: PRESENT: other - Intubated and sedated. ABSENT: alert, awake Psychiatric exam: ABSENT: agitated Skin exam: PRESENT: dry, warm Results Laboratory Results: 12/18/17 04:05 12/18/17 04:05 12/18/17 12/18/17 12/18/17 04:05 04:05 04:05 WBC 5.5 RBC 5.61 H Hgb 12.5 L Hct 40.7 MCV 73 L MCH 22.3 L MCHC 30.7 L RDW 17.7 H Plt Count 196 Seg Neutrophils % Not Reportable Lymphocytes % Not Reportable Monocytes % Not Reportable Eosinophils % Not Reportable Basophils % Not Reportable Absolute Neutrophils Not Reportable Absolute Lymphocytes Not Reportable Absolute Monocytes Not Reportable Absolute Eosinophils Not Reportable Absolute Basophils Not Reportable Carbonic Acid HCO3/H2CO3 Ratio ABG pH ABG pCO2 ABG pO2 ABG HCO3 ABG O2 Saturation ABG Base Excess FiO2 Sodium 135.8 L Potassium 4.7 Chloride 97 L Carbon Dioxide 30 Anion Gap 9 BUN 25 H Creatinine 1.18 Est GFR ( Amer) > 60 Est GFR (Non-Af Amer) > 60 Glucose 120 H Calcium 9.0 Magnesium 2.0 Total Bilirubin 0.6 AST 27 ALT 31 Alkaline Phosphatase 37 L Total Protein 6.4 Albumin 3.7 Triglycerides 97 12/18/17 12/18/17 06:18 10:15 WBC RBC Hgb Hct MCV MCH MCHC RDW Plt Count Seg Neutrophils % Lymphocytes % Monocytes % Eosinophils % Basophils % Absolute Neutrophils Absolute Lymphocytes Absolute Monocytes Absolute Eosinophils Absolute Basophils Carbonic Acid 1.12 1.37 H HCO3/H2CO3 Ratio 25:1 22:1 ABG pH 7.50 H 7.45 ABG pCO2 37.2 45.5 H ABG pO2 60.7 L 61.0 L ABG HCO3 28.5 H 31.0 H ABG O2 Saturation 93.3 L 92.3 L ABG Base Excess 5.2 6.1 FiO2 60% 60% Sodium Potassium Chloride Carbon Dioxide Anion Gap BUN Creatinine Est GFR ( Amer) Est GFR (Non-Af Amer) Glucose Calcium Magnesium Total Bilirubin AST ALT Alkaline Phosphatase Total Protein Albumin Triglycerides 12/18/17 12/18/17 12/18/17 04:05 10:44 10:44 Creatine Kinase 80 CK-MB (CK-2) 2.22 Troponin I 0.058 0.038 Impressions: Chest/Abdomen CTA 12/17/17 22:49 IMPRESSION:No evidence of pulmonary embolus Dependent atelectasis in the lower lobes and posterior aspects of the upper lobes bilaterally. Small amount of associated infiltrate in the lung bases cannot be entirely excluded on the basis of this exam Chest X-Ray 12/18/17 06:00 IMPRESSION: Tubes in good positioning. Stable bibasilar atelectasis Assessment & Plan - Diagnosis (1) Acute on chronic respiratory failure with hypoxia and hypercapnia Is this a current diagnosis for this admission?: Yes Plan: Patient remains intubated for a COPD exacerbation and acute hypoxemic respiratory failure. Dr. Curseen has been consulted to assist with vent management. The patient's blood gas showed slight alkalemia, we decreased his respiratory rate and pH has returned to normal. He is slightly hypercarbic probably his baseline. Oxygen levels improving. Wean vent as tolerated and extubate as soon as is safe. (2) Atrial fibrillation Qualifiers: Atrial fibrillation type: unspecified Qualified Code(s): I48.91 - Unspecified atrial fibrillation Is this a current diagnosis for this admission?: Yes Plan: Patient is in sinus rhythm now. He is anticoagulated for A. fib with Eliquis and this has been restarted to be administered via OG tube. (3) Acute renal injury Is this a current diagnosis for this admission?: Yes Plan: Probably a prerenal picture due to dehydration. Creatinine has resolved to normal with fluid hydration. Will monitor while patient is n.p.o. (4) COPD with exacerbation Is this a current diagnosis for this admission?: Yes Plan: This is the cause of the patient's acute and chronic respiratory failure. Please see problem #1. I have scheduled duo nebs every 6 hours with every 2 hour duo nebs as needed wheezing or shortness of breath. We will continue Levaquin 750 mg daily. Will start prednisone 20 mg daily 5 days. (5) Chronic anticoagulation Is this a current diagnosis for this admission?: Yes Plan: Patient is on apixaban 5 mg p.o. every 12 hours. This has been restarted. For this reason he does not need DVT prophylaxis. (6) Coronary artery disease Is this a current diagnosis for this admission?: Yes Plan: Patient had what appears to have been a non-ST elevation [place] on admission. Immediately troponins started to trend down, EKG not consistent with acute ischemic changes. Has now been started on his Zetia, fenofibrate, long-acting nitrate. Will monitor closely for evidence of acute ischemia. (7) Hypertension Qualifiers: Hypertension type: unspecified Qualified Code(s): I10 - Essential (primary ) hypertension Is this a current diagnosis for this admission?: Yes Plan: Blood pressure is well controlled. We will continue to monitor and treat as indicated. - Time Time Spent with patient: 25-34 minutes - Inpatient Certification Based on my medical assessment, after consideration of the patient's comorbidities, presenting symptoms, or acuity I expect that the services needed warrant INPATIENT care.: Yes I certify that my determination is in accordance with my understanding of Medicare's requirements for reasonable and necessary INPATIENT services [42 CFR 412.3e].: Yes Medical Necessity: Significant Comorbidiites Make Outpatient Treatment Too Risky , Need Close Monitoring Due to Risk of Patient Decompensation, Need For Continuous Telemetry Monitoring, Need for Nebulizer Therapy and Monitoring of Response - Plan Summary Plan Summary: - Diagnosis (1) Acute on chronic respiratory failure with hypoxia and hypercapnia Is this a current diagnosis for this admission?: Yes Plan: atient came with respiratory symptoms, in the emergency department became severely hypoxic and had to be placed on mechanical ventilator. ABG7./34. Vent settings 500/5/50 (2) Acute renal injury Is this a current diagnosis for this admission?: Yes Plan: BUN 25 and creatinine 1.36, likely prerenal secondary to dehydration. Continue with IV fluids. (3) COPD with exacerbation Is this a current diagnosis for this admission?: Yes Plan: Continue full mechanical ventilator on ketamine infusion for sedation. IV Levaquin. Solu-Medrol 80 mg every 8 hours. Nebulizer treatment with DuoNeb as needed. Sputum culture. CTA chest order. Please follow blood cultures. (4) Chronic anticoagulation Is this a current diagnosis for this admission?: Yes Plan: [place] secondary to atrial fibrillation, patient does not know why he is on anticoagulation. On Eliquis (5) Hypertension Qualifiers: Hypertension type: unspecified Qualified Code(s): I10 - Essential (primary ) hypertension Is this a current diagnosis for this admission?: Yes Plan: We are going to hold antihypertensive medications, patient with borderline hypotension. (6) Coronary artery disease Is this a current diagnosis for this admission?: Yes Plan: We are going to cycle cardiac enzymes 3. Will resume antiplatelet therapy.
[2017-12-18] MEDS: CLONAZEPAM 1 MG TABLET PO SCH (21:10)
[2017-12-18] MEDS: LEVOFLOXACIN 750 MG/D5W RTU 750 MG/150 ML RTUPB IV SCH (21:17)
[2017-12-19] MEDS: IPRATROPIUM/ALBUTEROL 0.5-2.5 MG/3 ML AMPUL NEB SCH ×4 (01:57→20:02)
[2017-12-19] MEDS: PROPOFOL 1,000 MG/100 ML INFUS..BTL IV PRN ×8 (02:24→22:33)
[2017-12-19] MEDS: NORMAL SALINE 1000 ML 1,000 ML IV PRN ×2 (02:25→14:20)
[2017-12-19 04:01] LABS: HEMATOCRIT 40.4 % (37.9-51.0); HEMOGLOBIN 12.5 g/dL (13.5-17.0); MEAN CORPUSCULAR HGB CONC 30.8 g/dL (32.0-36.0); MEAN CORPUSCULAR VOLUME 71 fl (80-97); PLATELET COUNT 189 10^3/uL (150-450); RED BLOOD COUNT 5.67 10^6/uL (4.35-5.55); RED CELL DISTRIBUTION WIDTH 17.7 % (11.5-14.0); WHITE BLOOD COUNT 6.6 10^3/uL (4.0-10.5)
[2017-12-19 04:25] LABS: ABSOLUTE LYMPHOCYTES# (MANUAL) 0.3 10^3/uL (0.5-4.7); ABSOLUTE MONOCYTES # (MANUAL) 0.1 10^3/uL (0.1-1.4); ABSOLUTE NEUTROPHILS# (MANUAL) 6.2 10^3/uL (1.7-8.2); ALANINE AMINOTRANSFERASE 22 U/L (21-72); ALBUMIN 3.3 g/dL (3.5-5.0); ANION GAP 7 (5-19); ASPARTATE AMINO TRANSFERASE 16 U/L (17-59); BASOPHILS % (MANUAL) 0 % (0-2); BILIRUBIN,DIRECT 0.5 mg/dL (0.0-0.4); BILIRUBIN,TOTAL 0.5 mg/dL (0.2-1.3); BLOOD UREA NITROGEN 28 mg/dL (7-20); CALCIUM 9.2 mg/dL (8.4-10.2); CARBON DIOXIDE 28 mmol/L (22-30); CHLORIDE 103 mmol/L (98-107); EOSINOPHILS % (MANUAL) 0 % (0-6); GLUCOSE 140 mg/dL (75-110); HYPERSEGMENTED NEUTROPHILS PRESENT; LYMPHOCYTES % (MANUAL) 4 % (13-45); MONOCYTES % (MANUAL) 2 % (3-13); POTASSIUM 4.8 mmol/L (3.6-5.0); SEGMENTED NEUTROPHILS % (MAN) 94 % (42-78); SODIUM 137.9 mmol/L (137-145); TOTAL CELLS COUNTED 100; TOTAL PROTEIN 6.1 g/dL (6.3-8.2); TOXIC GRANULATION 1+; TOXIC VACUOLATION PRESENT
[2017-12-19 04:26] LABS: ANISOCYTOSIS 1+; PLATELET CLUMPS PRESENT; PLATELET COMMENT ADEQUATE; PLATELET GIANT PRESENT; PLATELET LARGE PRESENT; SCHISTOCYTES SLIGHT
[2017-12-19 04:58] LABS: ARTERIAL BLOOD BASE EXCESS 3.2 mmol/L; ARTERIAL BLOOD HCO3 27.3 mmol/L (20-24); ARTERIAL BLOOD O2 SATURATION 95.8 % (94-98); ARTERIAL BLOOD PCO2 39.8 mmHg (35-45); ARTERIAL BLOOD PH 7.45 (7.35-7.45); ARTERIAL BLOOD PO2 75.9 mmHg (80-100); ARTERIAL BLOOD TOTAL CO2 28.5 mmol/L (23-27)
[2017-12-19 05:00] LABS: ARTERIAL BLOOD FIO2 50%
[2017-12-19 06:21] LABS: ALKALINE PHOSPHATASE 33 U/L (38-126)
[2017-12-19] MEDS: METHYLPREDNISOLONE INJ 40 MG/1 ML SDV IV SCH ×3 (06:23→21:02)
--- NOTE | 2017-12-19 08:16 | RADIOLOGY REPORT (SQ) ---
EXAM DESCRIPTION: CHEST SINGLE VIEW COMPLETED DATE/TIME: 12/19/2017 7:26 am REASON FOR STUDY: intubated COMPARISON: 12/18/2017. EXAM PARAMETERS: NUMBER OF VIEWS: One view. TECHNIQUE: Single frontal radiographic view of the chest acquired. RADIATION DOSE: NA LIMITATIONS: None. FINDINGS: LUNGS AND PLEURA: Scattered basilar densities, left greater than right. MEDIASTINUM AND HILAR STRUCTURES: No masses. Contour normal. HEART AND VASCULAR STRUCTURES: Heart normal in size. Normal vasculature. BONES: No acute findings. HARDWARE: Stable endotracheal tube, nasogastric tube, and pacemaker appear OTHER: No other significant finding. IMPRESSION: NO CHANGE IN APPEARANCE OF THE CHEST. TECHNICAL DOCUMENTATION: JOB ID: [id number] [employer]- All Rights Reserved Reading location - IP/workstation name: [email or web address]
--- NOTE | 2017-12-19 09:07 | PDOC PROGRESS REPORT ---
Subjective Progress Note for:: 12/19/17 Subjective:: Intubated and sedated with propofol. Per nurse the patient had a calm evening. No adverse events. No vent changes made overnight. Making good urine. It will have been stable. Reason For Visit: ACUTE HYPOXIC RESPIRATORY FAILURE, COPD Physical Exam Vital Signs: Temp Pulse Resp BP Pulse Ox 97.9 F 68 16 135/73 H 96 12/19/17 08:00 12/19/17 08:00 12/19/17 08:00 12/19/17 08:00 12/19/17 08:00 Intake & Output 12/18/17 12/19/17 12/20/17 06:59 06:59 06:59 Intake Total 86 2780 97 Output Total 600 3240 500 Balance -514 -460 -403 Weight 114.1 kg 115 kg General appearance: PRESENT: no acute distress, morbidly obese Head exam: PRESENT: atraumatic, normocephalic Eye exam: ABSENT: conjunctival injection, scleral icterus Mouth exam: PRESENT: moist Respiratory exam: PRESENT: decreased breath sounds, prolonged expiratory phas, unlabored. ABSENT: rales, retraction, wheezes Cardiovascular exam: PRESENT: RRR. ABSENT: systolic murmur Pulses: PRESENT: normal radial pulses, normal dorsalis pedis pul GI/Abdominal exam: PRESENT: normal bowel sounds, soft. ABSENT: distended, firm , tenderness Rectal exam: PRESENT: deferred Gentrourinary exam: PRESENT: indwelling catheter - Clear yellow urine in Alvarez bag Extremities exam: ABSENT: pedal edema Musculoskeletal exam: PRESENT: normal inspection Neurological exam: PRESENT: other - Sedated with propofol will grimace to pain, opens eyes slightly. Psychiatric exam: ABSENT: agitated Skin exam: PRESENT: dry, intact, warm Results Laboratory Results: 12/19/17 03:47 12/19/17 03:47 12/18/17 12/19/17 12/19/17 10:15 03:47 03:47 WBC 6.6 RBC 5.67 H Hgb 12.5 L Hct 40.4 MCV 71 L MCH 22.0 L MCHC 30.8 L RDW 17.7 H Plt Count 189 Seg Neutrophils % Not Reportable Lymphocytes % Not Reportable Monocytes % Not Reportable Eosinophils % Not Reportable Basophils % Not Reportable Absolute Neutrophils Not Reportable Absolute Lymphocytes Not Reportable Absolute Monocytes Not Reportable Absolute Eosinophils Not Reportable Absolute Basophils Not Reportable Carbonic Acid 1.37 H HCO3/H2CO3 Ratio 22:1 ABG pH 7.45 ABG pCO2 45.5 H ABG pO2 61.0 L ABG HCO3 31.0 H ABG O2 Saturation 92.3 L ABG Base Excess 6.1 FiO2 60% Sodium 137.9 Potassium 4.8 Chloride 103 Carbon Dioxide 28 Anion Gap 7 BUN 28 H Creatinine 1.15 Est GFR ( Amer) > 60 Est GFR (Non-Af Amer) > 60 Glucose 140 H Calcium 9.2 Total Bilirubin 0.5 AST 16 L ALT 22 Alkaline Phosphatase 33 L Total Protein 6.1 L Albumin 3.3 L 12/19/17 04:50 WBC RBC Hgb Hct MCV MCH MCHC RDW Plt Count Seg Neutrophils % Lymphocytes % Monocytes % Eosinophils % Basophils % Absolute Neutrophils Absolute Lymphocytes Absolute Monocytes Absolute Eosinophils Absolute Basophils Carbonic Acid 1.20 HCO3/H2CO3 Ratio 22:1 ABG pH 7.45 ABG pCO2 39.8 ABG pO2 75.9 L ABG HCO3 27.3 H ABG O2 Saturation 95.8 ABG Base Excess 3.2 FiO2 50% Sodium Potassium Chloride Carbon Dioxide Anion Gap BUN Creatinine Est GFR ( Amer) Est GFR (Non-Af Amer) Glucose Calcium Total Bilirubin AST ALT Alkaline Phosphatase Total Protein Albumin 12/18/17 12/18/17 12/18/17 04:05 10:44 10:44 Creatine Kinase 80 CK-MB (CK-2) 2.22 Troponin I 0.058 0.038 12/18/17 16:08 Creatine Kinase CK-MB (CK-2) Troponin I 0.036 Impressions: Chest/Abdomen CTA 12/17/17 22:49 IMPRESSION:No evidence of pulmonary embolus Dependent atelectasis in the lower lobes and posterior aspects of the upper lobes bilaterally. Small amount of associated infiltrate in the lung bases cannot be entirely excluded on the basis of this exam Chest X-Ray 12/19/17 06:00 IMPRESSION: NO CHANGE IN APPEARANCE OF THE CHEST. Assessment & Plan - Diagnosis (1) Acute on chronic respiratory failure with hypoxia and hypercapnia Is this a current diagnosis for this admission?: Yes Plan: This is secondary to COPD with exacerbation. Breath sounds are improved. Will start to wean IV steroids. We will continue scheduled and as needed duo nebs. Will continue antibiotics. We will continue to wean vent as we are able. Blood gas this morning shows improvement. Appreciate Dr. Atkinson's assistance. (2) Atrial fibrillation Qualifiers: Atrial fibrillation type: unspecified Qualified Code(s): I48.91 - Unspecified atrial fibrillation Is this a current diagnosis for this admission?: Yes Plan: Patient is in sinus rhythm currently. I started his Eliquis last night. We will continue to monitor on telemetry. (3) Acute renal injury Is this a current diagnosis for this admission?: Yes Plan: Improved with IV fluids. We will continue to monitor while patient is not eating or drinking evidence of infection. (4) COPD with exacerbation Is this a current diagnosis for this admission?: Yes Plan: Continue antibiotics and duo nebs as ordered, see problem #1. We will start to wean steroids. (5) Chronic anticoagulation Is this a current diagnosis for this admission?: Yes Plan: Patient is not on DVT prophylaxis because he is on Eliquis 5 mg p.o. twice daily and this was started yesterday. (6) Coronary artery disease Is this a current diagnosis for this admission?: Yes Plan: Patient had a slight elevation in troponin which trended down upon and after admission. No acute changes on EKG. We will continue telemetry and will continue his cardiac meds as we are able. His M Kunal is on hold as it is long- acting and cannot be administered via tube. (7) Hypertension Qualifiers: Hypertension type: unspecified Qualified Code(s): I10 - Essential (primary ) hypertension Is this a current diagnosis for this admission?: Yes Plan: Stylet blood pressure 135. We will continue to watch and if blood pressure increases will add a blood pressure agent as his M Kunal is currently on hold. - Time Time Spent with patient: 15-24 minutes Medications reviewed and adjusted accordingly: Yes - Inpatient Certification Based on my medical assessment, after consideration of the patient's comorbidities, presenting symptoms, or acuity I expect that the services needed warrant INPATIENT care.: Yes I certify that my determination is in accordance with my understanding of Medicare's requirements for reasonable and necessary INPATIENT services [42 CFR 412.3e].: Yes Medical Necessity: Need Close Monitoring Due to Risk of Patient Decompensation, Need for Nebulizer Therapy and Monitoring of Response, Need for IV Antibiotics
[2017-12-19] MEDS: EZETIMIBE 10 MG TABLET PO SCH (09:37)
[2017-12-19] MEDS: APIXABAN 5 MG TABLET PO SCH ×2 (09:37→21:02)
[2017-12-19] MEDS: ASPIRIN 325 MG TABLET, ENT COATED PO SCH (09:37)
[2017-12-19] MEDS: FENOFIBRATE NANOCRYSTALLIZED 145 MG TABLET PO SCH (09:37)
[2017-12-19] MEDS: FOLIC ACID 1 MG TABLET PO SCH (09:38)
[2017-12-19] MEDS: PANTOPRAZOLE SODIUM 40 MG VIAL IV SCH (09:38)
[2017-12-19] MEDS: ISOSORBIDE MONONITRATE 30 MG TAB.ER.24H PO SCH (09:38)
[2017-12-19] MEDS ORDERED: FOLIC ACID INJ 5 MG/1 ML 10 ML VIAL PO SCH (10:00)
[2017-12-19] MEDS: CLONAZEPAM 1 MG TABLET PO SCH (21:02)
[2017-12-19] MEDS: LEVOFLOXACIN 750 MG/D5W RTU 750 MG/150 ML RTUPB IV SCH (21:02)
[2017-12-20] MEDS: NORMAL SALINE 1000 ML 1,000 ML IV PRN ×2 (00:42→15:36)
[2017-12-20] MEDS: PROPOFOL 1,000 MG/100 ML INFUS..BTL IV PRN ×3 (01:06→05:40)
[2017-12-20] MEDS: IPRATROPIUM/ALBUTEROL 0.5-2.5 MG/3 ML AMPUL NEB SCH ×4 (02:28→20:39)
[2017-12-20 04:34] LABS: HEMATOCRIT 40.6 % (37.9-51.0); HEMOGLOBIN 12.5 g/dL (13.5-17.0); MEAN CORPUSCULAR HEMOGLOBIN 21.9 pg (27.0-33.4); MEAN CORPUSCULAR HGB CONC 30.8 g/dL (32.0-36.0); MEAN CORPUSCULAR VOLUME 71 fl (80-97); PLATELET COUNT 202 10^3/uL (150-450); RED CELL DISTRIBUTION WIDTH 17.8 % (11.5-14.0); WHITE BLOOD COUNT 5.7 10^3/uL (4.0-10.5)
[2017-12-20 04:41] LABS: ANION GAP 7 (5-19); BLOOD UREA NITROGEN 35 mg/dL (7-20); CALCIUM 9.2 mg/dL (8.4-10.2); CARBON DIOXIDE 25 mmol/L (22-30); CHLORIDE 107 mmol/L (98-107); GLUCOSE 128 mg/dL (75-110); POTASSIUM 4.8 mmol/L (3.6-5.0); SODIUM 138.5 mmol/L (137-145)
[2017-12-20 04:56] LABS: ABSOLUTE LYMPHOCYTES# (MANUAL) 0.2 10^3/uL (0.5-4.7); ABSOLUTE MONOCYTES # (MANUAL) 0.2 10^3/uL (0.1-1.4); ABSOLUTE NEUTROPHILS# (MANUAL) 5.3 10^3/uL (1.7-8.2); ANISOCYTOSIS 1+; BASOPHILS % (MANUAL) 0 % (0-2); EOSINOPHILS % (MANUAL) 0 % (0-6); LYMPHOCYTES % (MANUAL) 3 % (13-45); MONOCYTES % (MANUAL) 4 % (3-13); PLATELET COMMENT ADEQUATE; POLYCHROMASIA 1+; SEGMENTED NEUTROPHILS % (MAN) 93 % (42-78); TOTAL CELLS COUNTED 100
[2017-12-20] MEDS: METHYLPREDNISOLONE INJ 40 MG/1 ML SDV IV SCH ×3 (05:39→21:16)
[2017-12-20 06:19] LABS: ARTERIAL BLOOD BASE EXCESS 0.9 mmol/L; ARTERIAL BLOOD H2CO3 1.19 mmol/L (1.05-1.35); ARTERIAL BLOOD HCO3 25.2 mmol/L (20-24); ARTERIAL BLOOD O2 SATURATION 95.1 % (94-98); ARTERIAL BLOOD PCO2 39.4 mmHg (35-45); ARTERIAL BLOOD PH 7.42 (7.35-7.45); ARTERIAL BLOOD PO2 73.3 mmHg (80-100); ARTERIAL BLOOD TOTAL CO2 26.4 mmol/L (23-27)
[2017-12-20 06:20] LABS: ARTERIAL BLOOD FIO2 40%
--- NOTE | 2017-12-20 08:37 | RADIOLOGY REPORT (SQ) ---
EXAM DESCRIPTION: CHEST SINGLE VIEW COMPLETED DATE/TIME: 12/20/2017 8:17 am REASON FOR STUDY: intubated COMPARISON: 12/19/2017. EXAM PARAMETERS: NUMBER OF VIEWS: One view. TECHNIQUE: Single frontal radiographic view of the chest acquired. RADIATION DOSE: NA LIMITATIONS: None. FINDINGS: LUNGS AND PLEURA: Low lung volumes limits examination. Stable appearance to the lungs wi th bibasilar densities suggested. Small pleural effusions are not entirely excluded. No pneumothora x. MEDIASTINUM AND HILAR STRUCTURES: No masses. Contour normal. HEART AND VASCULAR STRUCTURES: Heart normal in size. Normal vasculature. BONES: No acute findings. HARDWARE: Support tubes and cardiac pacemaker, stable. OTHER: No other significant finding. IMPRESSION: 1. Low lung volumes limits examination. Stable appearance to the lungs with bibasilar densities suggested and small pleural effusions not entirely excluded. TECHNICAL DOCUMENTATION: JOB ID: [id number] [employer]- All Rights Reserved Reading location - IP/workstation name: [email or web address]
[2017-12-20] MEDS ORDERED: MORPHINE SULFATE 10 MG/ML INJ IV ONE (09:39)
[2017-12-20] MEDS: PANTOPRAZOLE SODIUM 40 MG VIAL IV SCH (10:19)
[2017-12-20] MEDS: APIXABAN 5 MG TABLET PO SCH ×2 (11:33→21:18)
[2017-12-20] MEDS: FOLIC ACID 1 MG TABLET PO SCH (11:33)
[2017-12-20] MEDS: ASPIRIN 325 MG TABLET, ENT COATED PO SCH (11:33)
[2017-12-20] MEDS: FENOFIBRATE NANOCRYSTALLIZED 145 MG TABLET PO SCH (11:33)
[2017-12-20] MEDS: ISOSORBIDE MONONITRATE 30 MG TAB.ER.24H PO SCH (11:33)
[2017-12-20] MEDS: DOCUSATE SODIUM 100 MG CAPSULE PO SCH ×2 (11:34→17:48)
[2017-12-20] MEDS: EZETIMIBE 10 MG TABLET PO SCH (11:34)
[2017-12-20] MEDS: HYDROCODONE/ACETAMINOPHEN 7.5-325 MG TABLET PO PRN ×3 (12:40→22:01)
--- NOTE | 2017-12-20 13:01 | PDOC CONSULTATION ---
Consultation Consult Date: 12/18/17 Attending physician:: OTTO NEAL Consult reason:: Acute on chronic respiratory failure History of Present Illness Admission Date/PCP: 12/17/17 23:44 History of Present Illness: ALEX MALLORY is a 72 year old malepresented to ED coughing for 3 weeks presented to the emergency room increasing shortness of breath subsequently was intubated patient has a greater than 37-[id number]-styb history is smoking as well as some history of congestive heart failure is currently intubated in ICU currently elevated FiO2 acceptable minute volume and respiratory rate Past Medical History Cardiac Medical History: Reports: Atrial Fibrillation, Congestive Heart Failure , Coronary Artery Disease, Myocardial Infarction, Hyperlipidema Pulmonary Medical History: Reports: Chronic Obstructive Pulmonary Disease (COPD) GI Medical History: Reports: Gastroesophageal Reflux Disease Past Surgical History Past Surgical History: Reports: Appendectomy, Cholecystectomy, Orthopedic Surgery - rt hip Social History Lives with: Family Smoking Status: Former Smoker Frequency of Alcohol Use: Social Hx Recreational Drug Use: No Drugs: None Hx Prescription Drug Abuse: No - Advance Directive Resuscitation Status: Full Code Family History Parental Family History Reviewed: No Children Family History Reviewed: No Sibling(s) Family History Reviewed.: No Medication/Allergy Home Medications: Albuterol Sulfate [Proair HFA Inhalation Aerosol 8.5 gm MDI] 2 puff IH Q6HP PRN 12/18/17 Apixaban [Eliquis 5 mg Tablet] 5 mg PO Q12 12/18/17 Aspirin [Ecotrin 325 mg EC Tablet] 325 mg PO DAILY 12/18/17 Clonazepam [Klonopin 1 mg Tablet] 1 mg PO QHS 12/18/17 Docusate Sodium [Colace 100 mg Capsule] 100 mg PO BID 12/18/17 Esomeprazole Magnesium [Nexium] 40 mg PO DAILY 12/18/17 Ezetimibe [Zetia 10 mg Tablet] 10 mg PO DAILY 12/18/17 Fenofibrate Nanocrystallized [Fenofibrate] 145 mg PO DAILY 12/18/17 Folic Acid 1 mg PO DAILY 12/18/17 Hydrocodone/Acetaminophen [Hydrocodone-Acetamin 7.5-325] 1 tab PO DAILYP PRN Isosorbide Mononitrate [Isosorbide Mononitrate ER] 30 mg PO DAILY 12/18/17 Nitroglycerin [Nitrostat 0.4 mg (1/150 Gr) Tabs 25/Bottle] 0.4 mg SL Q5MP PRN Allergies/Adverse Reactions: No Known Allergies Allergy (Verified 06/30/17 11:51) Review of Systems ROS unobtainable: Due to endotracheal tube Physical Exam Vital Signs: Temp Pulse Resp BP Pulse Ox 98.2 F 68 16 118/74 95 12/18/17 08:00 12/18/17 09:43 12/18/17 09:43 12/18/17 08:00 12/18/17 09:43 Intake & Output 12/17/17 12/18/17 12/19/17 06:59 06:59 06:59 Intake Total 86 52 Output Total 600 700 Balance -514 -648 Weight 114.1 kg General appearance: PRESENT: no acute distress, disheveled, obese, well- developed, well-nourished. ABSENT: cooperative Head exam: PRESENT: atraumatic, normocephalic Eye exam: PRESENT: conjunctiva pale. ABSENT: nystagmus, periorbital swelling, scleral icterus Mouth exam: PRESENT: dry mucosa, neck supple, tongue midline, other - ET tube Neck exam: ABSENT: carotid bruit, JVD, lymphadenopathy, thyromegaly, tracheal deviation, tracheostomy Respiratory exam: PRESENT: decreased breath sounds, prolonged expiratory phas, rales, rhonchi, symmetrical, unlabored, wheezes. ABSENT: retraction, stridor, tachypnea Cardiovascular exam: PRESENT: RRR, +S1, +S2, tachycardia Pulses: PRESENT: normal radial pulses GI/Abdominal exam: PRESENT: hypoactive bowel sounds, soft. ABSENT: tenderness Gentrourinary exam: PRESENT: indwelling catheter Extremities exam: ABSENT: calf tenderness, clubbing Musculoskeletal exam: ABSENT: ambulatory, deformity, dislocation Neurological exam: PRESENT: awake Psychiatric exam: PRESENT: flat affect Skin exam: PRESENT: dry, warm Results Laboratory Results: 12/18/17 04:05 12/18/17 04:05 12/18/17 12/18/17 12/18/17 04:05 04:05 04:05 WBC 5.5 RBC 5.61 H Hgb 12.5 L Hct 40.7 MCV 73 L MCH 22.3 L MCHC 30.7 L RDW 17.7 H Plt Count 196 Seg Neutrophils % Not Reportable Lymphocytes % Not Reportable Monocytes % Not Reportable Eosinophils % Not Reportable Basophils % Not Reportable Absolute Neutrophils Not Reportable Absolute Lymphocytes Not Reportable Absolute Monocytes Not Reportable Absolute Eosinophils Not Reportable Absolute Basophils Not Reportable Carbonic Acid HCO3/H2CO3 Ratio ABG pH ABG pCO2 ABG pO2 ABG HCO3 ABG O2 Saturation ABG Base Excess FiO2 Sodium 135.8 L Potassium 4.7 Chloride 97 L Carbon Dioxide 30 Anion Gap 9 BUN 25 H Creatinine 1.18 Est GFR ( Amer) > 60 Est GFR (Non-Af Amer) > 60 Glucose 120 H Calcium 9.0 Magnesium 2.0 Total Bilirubin 0.6 AST 27 ALT 31 Alkaline Phosphatase 37 L Total Protein 6.4 Albumin 3.7 Triglycerides 97 12/18/17 06:18 WBC RBC Hgb Hct MCV MCH MCHC RDW Plt Count Seg Neutrophils % Lymphocytes % Monocytes % Eosinophils % Basophils % Absolute Neutrophils Absolute Lymphocytes Absolute Monocytes Absolute Eosinophils Absolute Basophils Carbonic Acid 1.12 HCO3/H2CO3 Ratio 25:1 ABG pH 7.50 H ABG pCO2 37.2 ABG pO2 60.7 L ABG HCO3 28.5 H ABG O2 Saturation 93.3 L ABG Base Excess 5.2 FiO2 60% Sodium Potassium Chloride Carbon Dioxide Anion Gap BUN Creatinine Est GFR ( Amer) Est GFR (Non-Af Amer) Glucose Calcium Magnesium Total Bilirubin AST ALT Alkaline Phosphatase Total Protein Albumin Triglycerides 12/18/17 04:05 Troponin I 0.058 Impressions: Chest/Abdomen CTA 12/17/17 22:49 IMPRESSION:No evidence of pulmonary embolus Dependent atelectasis in the lower lobes and posterior aspects of the upper lobes bilaterally. Small amount of associated infiltrate in the lung bases cannot be entirely excluded on the basis of this exam Chest X-Ray 12/18/17 06:00 IMPRESSION: Tubes in good positioning. Stable bibasilar atelectasis Assessment & Plan - Diagnosis (1) Acute on chronic respiratory failure with hypoxia and hypercapnia Is this a current diagnosis for this admission?: Yes Plan: Complete continue supportive care with mechanical ventilation concerned about high FiO2 requirements at this time (2) Atrial fibrillation Qualifiers: Atrial fibrillation type: unspecified Qualified Code(s): I48.91 - Unspecified atrial fibrillation Is this a current diagnosis for this admission?: Yes Plan: Stable ventricular response (3) COPD (chronic obstructive pulmonary disease) Is this a current diagnosis for this admission?: Yes Plan: Yudelka + laba +long acting muscarinic agent (4) Coronary artery disease Is this a current diagnosis for this admission?: Yes Plan: Anticoagulated secondary to chronic atrial fibrillation (5) Obesity Is this a current diagnosis for this admission?: Yes (6) Obstructive sleep apnea Is this a current diagnosis for this admission?: Yes - Time Total Critical Time (Minutes): 60
[2017-12-20] MEDS ORDERED: RINGERS SOLUTION,LACTATED 500 ML IV PRN (18:42)
--- NOTE | 2017-12-20 18:46 | PDOC PROGRESS REPORT ---
Subjective Progress Note for:: 12/20/17 Subjective:: Patient has just been extubated when I evaluated him. He is breathing fine. He feels comfortable. His back is hurting and he has chronic back pain. He tells me he takes Vicodin regularly. No fevers or chills. No adverse events overnight. Reason For Visit: ACUTE HYPOXIC RESPIRATORY FAILURE, COPD Physical Exam Vital Signs: Temp Pulse Resp BP Pulse Ox 97.5 F 103 H 23 H 122/81 90 L 12/20/17 05:30 12/20/17 13:56 12/20/17 18:04 12/20/17 18:04 12/20/17 18:04 Intake & Output 12/19/17 12/20/17 12/21/17 06:59 06:59 06:59 Intake Total 2930 2457 1480 Output Total 3246 2796 2100 Balance -731 -4576 -189 Weight 115 kg 111.8 kg General appearance: PRESENT: no acute distress, cooperative, obese Head exam: PRESENT: atraumatic, normocephalic Eye exam: ABSENT: conjunctival injection, scleral icterus Respiratory exam: PRESENT: decreased breath sounds, unlabored. ABSENT: rales, rhonchi, wheezes Cardiovascular exam: PRESENT: RRR, systolic murmur Pulses: PRESENT: normal radial pulses GI/Abdominal exam: PRESENT: soft. ABSENT: distended, tenderness Rectal exam: PRESENT: deferred Extremities exam: ABSENT: pedal edema Neurological exam: PRESENT: alert, awake, oriented to situation Psychiatric exam: PRESENT: appropriate affect. ABSENT: anxious Skin exam: PRESENT: dry, intact, warm Results Laboratory Results: 12/20/17 03:49 12/20/17 03:49 12/20/17 12/20/17 12/20/17 03:49 03:49 06:00 WBC 5.7 RBC 5.70 H Hgb 12.5 L Hct 40.6 MCV 71 L MCH 21.9 L MCHC 30.8 L RDW 17.8 H Plt Count 202 Seg Neutrophils % Not Reportable Lymphocytes % Not Reportable Monocytes % Not Reportable Eosinophils % Not Reportable Basophils % Not Reportable Absolute Neutrophils Not Reportable Absolute Lymphocytes Not Reportable Absolute Monocytes Not Reportable Absolute Eosinophils Not Reportable Absolute Basophils Not Reportable Carbonic Acid 1.19 HCO3/H2CO3 Ratio 21:1 ABG pH 7.42 ABG pCO2 39.4 ABG pO2 73.3 L ABG HCO3 25.2 H ABG O2 Saturation 95.1 ABG Base Excess 0.9 FiO2 40% Sodium 138.5 Potassium 4.8 Chloride 107 Carbon Dioxide 25 Anion Gap 7 BUN 35 H Creatinine 0.96 Est GFR ( Amer) > 60 Est GFR (Non-Af Amer) > 60 Glucose 128 H Calcium 9.2 Magnesium 2.1 12/18/17 12/18/17 12/18/17 04:05 10:44 10:44 Creatine Kinase 80 CK-MB (CK-2) 2.22 Troponin I 0.058 0.038 12/18/17 16:08 Creatine Kinase CK-MB (CK-2) Troponin I 0.036 Impressions: Chest/Abdomen CTA 12/17/17 22:49 IMPRESSION:No evidence of pulmonary embolus Dependent atelectasis in the lower lobes and posterior aspects of the upper lobes bilaterally. Small amount of associated infiltrate in the lung bases cannot be entirely excluded on the basis of this exam Chest X-Ray 12/20/17 06:00 IMPRESSION: 1. Low lung volumes limits examination. Stable appearance to the lungs with bibasilar densities suggested and small pleural effusions not entirely excluded. Assessment & Plan - Diagnosis (1) Acute on chronic respiratory failure with hypoxia and hypercapnia Is this a current diagnosis for this admission?: Yes Plan: We were able to extubate the patient today. His ABG was much improved. His COPD exacerbation is being treated appropriately. (2) Atrial fibrillation Qualifiers: Atrial fibrillation type: unspecified Qualified Code(s): I48.91 - Unspecified atrial fibrillation Is this a current diagnosis for this admission?: Yes Plan: Patient is anticoagulated with Eliquis. He is rate controlled. We will continue to monitor on telemetry. (3) Acute renal injury Is this a current diagnosis for this admission?: Yes Plan: Renal function has improved. We will continue to hydrate until patient is eating and drinking well. Will check urinalysis. No sign of obstruction. (4) COPD with exacerbation Is this a current diagnosis for this admission?: Yes Plan: Significantly improved. Continue DuoNeb scheduled and as needed, will taper steroids, continue Levaquin daily. (5) Chronic anticoagulation Is this a current diagnosis for this admission?: Yes Plan: Continue his Eliquis as ordered. (6) Coronary artery disease Is this a current diagnosis for this admission?: Yes Plan: No evidence of acute ischemic disease. Continue his cardiac meds. (7) Hypertension Qualifiers: Hypertension type: unspecified Qualified Code(s): I10 - Essential (primary ) hypertension Is this a current diagnosis for this admission?: Yes Plan: Vision is normotensive. Continue to monitor vitals and treat if indicated. Continue his isosorbide. (8) Chronic back pain Is this a current diagnosis for this admission?: Yes Plan: Patient received 1 dose of morphine 2 mg IV and then his Vicodin was restarted. His pain is improving. - Time Time Spent with patient: 25-34 minutes Medications reviewed and adjusted accordingly: Yes - Inpatient Certification Based on my medical assessment, after consideration of the patient's comorbidities, presenting symptoms, or acuity I expect that the services needed warrant INPATIENT care.: Yes I certify that my determination is in accordance with my understanding of Medicare's requirements for reasonable and necessary INPATIENT services [42 CFR 412.3e].: Yes Medical Necessity: Need For Continuous Telemetry Monitoring, Need for Nebulizer Therapy and Monitoring of Response, Risk of Complication if Not Cared For in Hospital
[2017-12-20] MEDS: ACETYLCYSTEINE 20% SOLN 800 MG/4 ML VIAL.NEB NEB SCH (20:39)
[2017-12-20 20:53] LABS: APPEARANCE,URINE CLEAR; BILIRUBIN,URINE NEGATIVE (NEGATIVE); COLOR,URINE STRAW; GLUCOSE, URINE NEGATIVE (NEGATIVE); KETONES,URINE NEGATIVE (NEGATIVE); LEUKOCYTE ESTERASE,URINE NEGATIVE (NEGATIVE); NITRITE,URINE NEGATIVE (NEGATIVE); PROTEIN,URINE NEGATIVE (NEGATIVE); URINE SPECIFIC GRAVITY 1.009; UROBILINOGEN,URINE NEGATIVE mg/dL (<2.0)
[2017-12-20] MEDS: CLONAZEPAM 1 MG TABLET PO SCH (21:17)
[2017-12-21] MEDS: IPRATROPIUM/ALBUTEROL 0.5-2.5 MG/3 ML AMPUL NEB SCH ×4 (02:32→20:32)
[2017-12-21 04:37] LABS: ANION GAP 8 (5-19); BLOOD UREA NITROGEN 38 mg/dL (7-20); CALCIUM 9.3 mg/dL (8.4-10.2); CARBON DIOXIDE 28 mmol/L (22-30); CHLORIDE 105 mmol/L (98-107); GLUCOSE 129 mg/dL (75-110); POTASSIUM 4.9 mmol/L (3.6-5.0); SODIUM 140.8 mmol/L (137-145)
[2017-12-21 05:00] LABS: HEMATOCRIT 42.1 % (37.9-51.0); HEMOGLOBIN 12.9 g/dL (13.5-17.0); MEAN CORPUSCULAR HGB CONC 30.6 g/dL (32.0-36.0); MEAN CORPUSCULAR VOLUME 72 fl (80-97); PLATELET COUNT 177 10^3/uL (150-450); RED BLOOD COUNT 5.86 10^6/uL (4.35-5.55); RED CELL DISTRIBUTION WIDTH 17.9 % (11.5-14.0); WHITE BLOOD COUNT 4.8 10^3/uL (4.0-10.5)
[2017-12-21 05:27] LABS: ABSOLUTE LYMPHOCYTES# (MANUAL) 0.4 10^3/uL (0.5-4.7); ABSOLUTE MONOCYTES # (MANUAL) 0.3 10^3/uL (0.1-1.4); ABSOLUTE NEUTROPHILS# (MANUAL) 4.1 10^3/uL (1.7-8.2); BASOPHILS % (MANUAL) 0 % (0-2); EOSINOPHILS % (MANUAL) 0 % (0-6); LYMPHOCYTES % (MANUAL) 8 % (13-45); MONOCYTES % (MANUAL) 7 % (3-13); SEGMENTED NEUTROPHILS % (MAN) 85 % (42-78); TOTAL CELLS COUNTED 100
[2017-12-21 05:29] LABS: ANISOCYTOSIS 1+; PLATELET COMMENT ADEQUATE; POLYCHROMASIA 1+
[2017-12-21] MEDS: NORMAL SALINE 1000 ML 1,000 ML IV PRN (05:45)
[2017-12-21] MEDS: METHYLPREDNISOLONE INJ 40 MG/1 ML SDV IV SCH (05:45)
--- NOTE | 2017-12-21 06:51 | RADIOLOGY REPORT (SQ) ---
EXAM DESCRIPTION: XR CHEST 1 VIEW COMPLETED DATE/TME: 12/21/2017 06:00 CLINICAL HISTORY: 72 years Male, resp failure COMPARISON: One day prior. NUMBER OF VIEWS/TECHNIQUE: 1/AP FINDINGS: Small bibasilar opacity-effusion, normal cardiac silhouette, atherosclerosis, right cardiac stimulator with leads. No pneumothorax. Stable bony thorax. IMPRESSION: No significant change.
[2017-12-21] MEDS: ACETYLCYSTEINE 20% SOLN 800 MG/4 ML VIAL.NEB NEB SCH (07:50)
[2017-12-21 08:44] LABS: ARTERIAL BLOOD BASE EXCESS 1.3 mmol/L; ARTERIAL BLOOD H2CO3 1.22 mmol/L (1.05-1.35); ARTERIAL BLOOD HCO3 25.8 mmol/L (20-24); ARTERIAL BLOOD O2 SATURATION 95.8 % (94-98); ARTERIAL BLOOD PCO2 40.6 mmHg (35-45); ARTERIAL BLOOD PH 7.42 (7.35-7.45); ARTERIAL BLOOD PO2 78.6 mmHg (80-100)
[2017-12-21 08:47] LABS: ARTERIAL BLOOD FIO2 2L
[2017-12-21] MEDS ORDERED: MORPHINE SULFATE 10 MG/ML INJ IV PRN (09:15)
[2017-12-21] MEDS: HYDROCODONE/ACETAMINOPHEN 7.5-325 MG TABLET PO PRN (10:33)
[2017-12-21] MEDS: FENOFIBRATE NANOCRYSTALLIZED 145 MG TABLET PO SCH (10:33)
[2017-12-21] MEDS: LEVOFLOXACIN 750 MG TABLET PO SCH (10:33)
[2017-12-21] MEDS: ISOSORBIDE MONONITRATE 30 MG TAB.ER.24H PO SCH (10:33)
[2017-12-21] MEDS: APIXABAN 5 MG TABLET PO SCH ×2 (10:34→21:20)
[2017-12-21] MEDS: FOLIC ACID 1 MG TABLET PO SCH (10:34)
[2017-12-21] MEDS: ASPIRIN 325 MG TABLET, ENT COATED PO SCH (10:34)
[2017-12-21] MEDS: PREDNISONE 20 MG TABLET PO SCH ×2 (10:34→17:39)
[2017-12-21] MEDS: DOCUSATE SODIUM 100 MG CAPSULE PO SCH ×2 (10:34→17:39)
[2017-12-21] MEDS: EZETIMIBE 10 MG TABLET PO SCH (10:34)
--- NOTE | 2017-12-21 14:28 | PDOC PROGRESS REPORT ---
Subjective Progress Note for:: 12/20/17 Subjective:: 24 hours status post extubation doing well Reason For Visit: ACUTE HYPOXIC RESPIRATORY FAILURE, COPD Physical Exam Vital Signs: Temp Pulse Resp BP Pulse Ox 97.5 F 64 14 121/67 96 12/20/17 05:30 12/20/17 07:56 12/20/17 07:56 12/20/17 05:03 12/20/17 07:56 Intake & Output 12/19/17 12/20/17 12/21/17 06:59 06:59 06:59 Intake Total 2930 2457 Output Total 3240 0690 Balance -310 -1338 Weight 115 kg 111.8 kg General appearance: PRESENT: no acute distress, cooperative, disheveled, obese Head exam: PRESENT: atraumatic, normocephalic Eye exam: PRESENT: conjunctiva pale, EOMI. ABSENT: nystagmus, periorbital swelling, scleral icterus Mouth exam: PRESENT: moist, neck supple, tongue midline Neck exam: ABSENT: carotid bruit, JVD, lymphadenopathy, thyromegaly, tracheal deviation, tracheostomy Respiratory exam: PRESENT: decreased breath sounds, prolonged expiratory phas, rhonchi, unlabored. ABSENT: retraction Cardiovascular exam: PRESENT: RRR, +S1, +S2 Pulses: PRESENT: normal radial pulses GI/Abdominal exam: PRESENT: hypoactive bowel sounds, soft. ABSENT: tenderness Gentrourinary exam: PRESENT: indwelling catheter Extremities exam: ABSENT: calf tenderness, clubbing, joint swelling, +1 edema, + 2 edema Musculoskeletal exam: ABSENT: ambulatory, deformity, dislocation Neurological exam: PRESENT: alert, awake Psychiatric exam: PRESENT: flat affect Skin exam: PRESENT: dry, warm Results Laboratory Results: 12/20/17 03:49 12/20/17 03:49 12/20/17 12/20/17 12/20/17 03:49 03:49 06:00 WBC 5.7 RBC 5.70 H Hgb 12.5 L Hct 40.6 MCV 71 L MCH 21.9 L MCHC 30.8 L RDW 17.8 H Plt Count 202 Seg Neutrophils % Not Reportable Lymphocytes % Not Reportable Monocytes % Not Reportable Eosinophils % Not Reportable Basophils % Not Reportable Absolute Neutrophils Not Reportable Absolute Lymphocytes Not Reportable Absolute Monocytes Not Reportable Absolute Eosinophils Not Reportable Absolute Basophils Not Reportable Carbonic Acid 1.19 HCO3/H2CO3 Ratio 21:1 ABG pH 7.42 ABG pCO2 39.4 ABG pO2 73.3 L ABG HCO3 25.2 H ABG O2 Saturation 95.1 ABG Base Excess 0.9 FiO2 40% Sodium 138.5 Potassium 4.8 Chloride 107 Carbon Dioxide 25 Anion Gap 7 BUN 35 H Creatinine 0.96 Est GFR ( Amer) > 60 Est GFR (Non-Af Amer) > 60 Glucose 128 H Calcium 9.2 Magnesium 2.1 12/18/17 12/18/17 12/18/17 04:05 10:44 10:44 Creatine Kinase 80 CK-MB (CK-2) 2.22 Troponin I 0.058 0.038 12/18/17 16:08 Creatine Kinase CK-MB (CK-2) Troponin I 0.036 Impressions: Chest/Abdomen CTA 12/17/17 22:49 IMPRESSION:No evidence of pulmonary embolus Dependent atelectasis in the lower lobes and posterior aspects of the upper lobes bilaterally. Small amount of associated infiltrate in the lung bases cannot be entirely excluded on the basis of this exam Assessment & Plan - Diagnosis (1) Acute on chronic respiratory failure with hypoxia and hypercapnia Is this a current diagnosis for this admission?: Yes Plan: Improving we will transfer to noninvasive positive pressure ventilation BiPAP (2) COPD (chronic obstructive pulmonary disease) Is this a current diagnosis for this admission?: Yes Plan: Yudelka + laba +long acting muscarinic agent (3) Obesity Is this a current diagnosis for this admission?: Yes (4) Obstructive sleep apnea Is this a current diagnosis for this admission?: Yes Plan: We will need to wear BiPAP whenever patient is asleep - Time Total Critical Time (Minutes): 55
--- NOTE | 2017-12-21 14:31 | PDOC PROGRESS REPORT ---
Subjective Progress Note for:: 12/21/17 Subjective:: 24 hours status post extubation alternating with BiPAP and nasal cannulas doing well Reason For Visit: ACUTE HYPOXIC RESPIRATORY FAILURE, COPD Physical Exam Vital Signs: Temp Pulse Resp BP Pulse Ox 98.6 F 74 15 107/87 H 99 12/21/17 08:00 12/21/17 08:09 12/21/17 08:00 12/21/17 08:00 12/21/17 08:00 Intake & Output 12/20/17 12/21/17 12/22/17 06:59 06:59 06:59 Intake Total 2457 2480 Output Total 3795 4175 440 Balance -1338 -1695 -440 Weight 111.8 kg 109.9 kg General appearance: PRESENT: no acute distress, cooperative, disheveled, obese Head exam: PRESENT: atraumatic, normocephalic Eye exam: PRESENT: conjunctiva pale, EOMI. ABSENT: nystagmus, periorbital swelling, scleral icterus Mouth exam: PRESENT: moist, neck supple, tongue midline Neck exam: ABSENT: carotid bruit, JVD, lymphadenopathy, thyromegaly, tracheal deviation, tracheostomy Respiratory exam: PRESENT: decreased breath sounds, prolonged expiratory phas, rhonchi, unlabored. ABSENT: retraction, stridor, tachypnea Cardiovascular exam: PRESENT: RRR, +S1, +S2 Pulses: PRESENT: normal radial pulses GI/Abdominal exam: PRESENT: normal bowel sounds, soft. ABSENT: tenderness Gentrourinary exam: PRESENT: indwelling catheter Extremities exam: ABSENT: calf tenderness, clubbing, +1 edema, +2 edema Musculoskeletal exam: ABSENT: ambulatory, deformity, dislocation Neurological exam: PRESENT: alert, awake Psychiatric exam: PRESENT: flat affect Skin exam: PRESENT: dry, warm Results Laboratory Results: 12/21/17 04:00 12/21/17 04:00 12/20/17 12/21/17 12/21/17 20:26 04:00 04:00 WBC 4.8 RBC 5.86 H Hgb 12.9 L Hct 42.1 MCV 72 L MCH 22.0 L MCHC 30.6 L RDW 17.9 H Plt Count 177 Seg Neutrophils % Not Reportable Lymphocytes % Not Reportable Monocytes % Not Reportable Eosinophils % Not Reportable Basophils % Not Reportable Absolute Neutrophils Not Reportable Absolute Lymphocytes Not Reportable Absolute Monocytes Not Reportable Absolute Eosinophils Not Reportable Absolute Basophils Not Reportable Carbonic Acid HCO3/H2CO3 Ratio ABG pH ABG pCO2 ABG pO2 ABG HCO3 ABG O2 Saturation ABG Base Excess FiO2 Sodium 140.8 Potassium 4.9 Chloride 105 Carbon Dioxide 28 Anion Gap 8 BUN 38 H Creatinine 1.10 Est GFR ( Amer) > 60 Est GFR (Non-Af Amer) > 60 Glucose 129 H Calcium 9.3 Magnesium 2.0 Urine Color STRAW Urine Appearance CLEAR Urine pH 6.0 Ur Specific [place] 1.009 Urine Protein NEGATIVE Urine Glucose (UA) NEGATIVE Urine Ketones NEGATIVE Urine Blood NEGATIVE Urine Nitrite NEGATIVE Ur Leukocyte Esterase NEGATIVE Urine WBC (Auto) 0 Urine RBC (Auto) 0 12/21/17 08:18 WBC RBC Hgb Hct MCV MCH MCHC RDW Plt Count Seg Neutrophils % Lymphocytes % Monocytes % Eosinophils % Basophils % Absolute Neutrophils Absolute Lymphocytes Absolute Monocytes Absolute Eosinophils Absolute Basophils Carbonic Acid 1.22 HCO3/H2CO3 Ratio 21:1 ABG pH 7.42 ABG pCO2 40.6 ABG pO2 78.6 L ABG HCO3 25.8 H ABG O2 Saturation 95.8 ABG Base Excess 1.3 FiO2 2L Sodium Potassium Chloride Carbon Dioxide Anion Gap BUN Creatinine Est GFR ( Amer) Est GFR (Non-Af Amer) Glucose Calcium Magnesium Urine Color Urine Appearance Urine pH Ur Specific [place] Urine Protein Urine Glucose (UA) Urine Ketones Urine Blood Urine Nitrite Ur Leukocyte Esterase Urine WBC (Auto) Urine RBC (Auto) 12/18/17 12/18/17 12/18/17 04:05 10:44 10:44 Creatine Kinase 80 CK-MB (CK-2) 2.22 Troponin I 0.058 0.038 12/18/17 16:08 Creatine Kinase CK-MB (CK-2) Troponin I 0.036 Impressions: Chest/Abdomen CTA 12/17/17 22:49 IMPRESSION:No evidence of pulmonary embolus Dependent atelectasis in the lower lobes and posterior aspects of the upper lobes bilaterally. Small amount of associated infiltrate in the lung bases cannot be entirely excluded on the basis of this exam Chest X-Ray 12/21/17 06:00 IMPRESSION: No significant change. Assessment & Plan - Diagnosis (1) Acute on chronic respiratory failure with hypoxia and hypercapnia Is this a current diagnosis for this admission?: Yes Plan: 24 hours status post extubation stable doing well (2) Atrial fibrillation Qualifiers: Atrial fibrillation type: unspecified Qualified Code(s): I48.91 - Unspecified atrial fibrillation Is this a current diagnosis for this admission?: Yes Plan: Stable ventricular response (3) COPD (chronic obstructive pulmonary disease) Is this a current diagnosis for this admission?: Yes Plan: Yudelka + laba +long acting muscarinic agent (4) Coronary artery disease Is this a current diagnosis for this admission?: Yes Plan: Anticoagulated secondary to chronic atrial fibrillation (5) Obesity Is this a current diagnosis for this admission?: Yes (6) Obstructive sleep apnea Is this a current diagnosis for this admission?: Yes Plan: We will need to wear BiPAP whenever patient is asleep - Time Total Critical Time (Minutes): 40
--- NOTE | 2017-12-21 14:34 | PDOC PROGRESS REPORT ---
Subjective Progress Note for:: 12/19/17 Subjective:: Slightly improved remains intubated Reason For Visit: ACUTE HYPOXIC RESPIRATORY FAILURE, COPD Physical Exam Vital Signs: Temp Pulse Resp BP Pulse Ox 97.9 F 64 16 135/73 H 97 12/19/17 08:00 12/19/17 08:00 12/19/17 08:00 12/19/17 08:00 12/19/17 08:00 Intake & Output 12/18/17 12/19/17 12/20/17 06:59 06:59 06:59 Intake Total 86 2780 97 Output Total 600 3240 500 Balance -514 -460 -403 Weight 114.1 kg 115 kg General appearance: PRESENT: no acute distress, disheveled, obese Head exam: PRESENT: atraumatic, normocephalic Eye exam: PRESENT: conjunctiva pale, EOMI. ABSENT: nystagmus, periorbital swelling, scleral icterus Mouth exam: PRESENT: dry mucosa, neck supple, tongue midline, other - ET tube in place Neck exam: ABSENT: carotid bruit, JVD, lymphadenopathy, thyromegaly, tracheal deviation, tracheostomy Respiratory exam: PRESENT: decreased breath sounds, prolonged expiratory phas, rales, rhonchi, symmetrical, unlabored. ABSENT: retraction, stridor, tachypnea Cardiovascular exam: PRESENT: RRR, +S1, +S2 Pulses: PRESENT: normal radial pulses GI/Abdominal exam: PRESENT: normal bowel sounds, soft. ABSENT: tenderness Gentrourinary exam: PRESENT: indwelling catheter Extremities exam: ABSENT: calf tenderness, clubbing, pedal edema, tenderness, + 1 edema, +2 edema Musculoskeletal exam: ABSENT: ambulatory, deformity, dislocation Neurological exam: PRESENT: awake, oriented to person. ABSENT: oriented to place, oriented to time, oriented to situation Psychiatric exam: PRESENT: flat affect Skin exam: PRESENT: dry, warm Results Laboratory Results: 12/19/17 03:47 12/19/17 03:47 12/18/17 12/19/17 12/19/17 10:15 03:47 03:47 WBC 6.6 RBC 5.67 H Hgb 12.5 L Hct 40.4 MCV 71 L MCH 22.0 L MCHC 30.8 L RDW 17.7 H Plt Count 189 Seg Neutrophils % Not Reportable Lymphocytes % Not Reportable Monocytes % Not Reportable Eosinophils % Not Reportable Basophils % Not Reportable Absolute Neutrophils Not Reportable Absolute Lymphocytes Not Reportable Absolute Monocytes Not Reportable Absolute Eosinophils Not Reportable Absolute Basophils Not Reportable Carbonic Acid 1.37 H HCO3/H2CO3 Ratio 22:1 ABG pH 7.45 ABG pCO2 45.5 H ABG pO2 61.0 L ABG HCO3 31.0 H ABG O2 Saturation 92.3 L ABG Base Excess 6.1 FiO2 60% Sodium 137.9 Potassium 4.8 Chloride 103 Carbon Dioxide 28 Anion Gap 7 BUN 28 H Creatinine 1.15 Est GFR ( Amer) > 60 Est GFR (Non-Af Amer) > 60 Glucose 140 H Calcium 9.2 Total Bilirubin 0.5 AST 16 L ALT 22 Alkaline Phosphatase 33 L Total Protein 6.1 L Albumin 3.3 L 12/19/17 04:50 WBC RBC Hgb Hct MCV MCH MCHC RDW Plt Count Seg Neutrophils % Lymphocytes % Monocytes % Eosinophils % Basophils % Absolute Neutrophils Absolute Lymphocytes Absolute Monocytes Absolute Eosinophils Absolute Basophils Carbonic Acid 1.20 HCO3/H2CO3 Ratio 22:1 ABG pH 7.45 ABG pCO2 39.8 ABG pO2 75.9 L ABG HCO3 27.3 H ABG O2 Saturation 95.8 ABG Base Excess 3.2 FiO2 50% Sodium Potassium Chloride Carbon Dioxide Anion Gap BUN Creatinine Est GFR ( Amer) Est GFR (Non-Af Amer) Glucose Calcium Total Bilirubin AST ALT Alkaline Phosphatase Total Protein Albumin 12/18/17 12/18/17 12/18/17 04:05 10:44 10:44 Creatine Kinase 80 CK-MB (CK-2) 2.22 Troponin I 0.058 0.038 12/18/17 16:08 Creatine Kinase CK-MB (CK-2) Troponin I 0.036 Impressions: Chest/Abdomen CTA 12/17/17 22:49 IMPRESSION:No evidence of pulmonary embolus Dependent atelectasis in the lower lobes and posterior aspects of the upper lobes bilaterally. Small amount of associated infiltrate in the lung bases cannot be entirely excluded on the basis of this exam Chest X-Ray 12/19/17 06:00 IMPRESSION: NO CHANGE IN APPEARANCE OF THE CHEST. Assessment & Plan - Diagnosis (1) Acute on chronic respiratory failure with hypoxia and hypercapnia Is this a current diagnosis for this admission?: Yes Plan: Slightly improved (2) Atrial fibrillation Qualifiers: Atrial fibrillation type: unspecified Qualified Code(s): I48.91 - Unspecified atrial fibrillation Is this a current diagnosis for this admission?: Yes Plan: Stable ventricular response (3) COPD (chronic obstructive pulmonary disease) Is this a current diagnosis for this admission?: Yes Plan: Yudelka + laba +long acting muscarinic agent (4) Obesity Is this a current diagnosis for this admission?: Yes (5) Obstructive sleep apnea Is this a current diagnosis for this admission?: Yes Plan: We will need to wear BiPAP whenever patient is asleep - Time Total Critical Time (Minutes): 45
[2017-12-21] MEDS: MORPHINE SULFATE 10 MG/ML INJ IV PRN ×2 (15:23→21:21)
--- NOTE | 2017-12-21 18:02 | PDOC PROGRESS REPORT ---
Subjective Progress Note for:: 12/21/17 Subjective:: Mr. Don is breathing well this morning. No chest pain. No cough or sputum production. He is teary over his intubation, it frightens him quite a bit. We discussed the importance of controlling his COPD as well as possible to help prevent events like this in the future that we also discussed that sometimes it is not preventable. No fevers or chills. Eating and drinking well. Would like to get out of bed if possible. Reason For Visit: ACUTE HYPOXIC RESPIRATORY FAILURE, COPD Physical Exam Vital Signs: Temp Pulse Resp BP Pulse Ox 99.5 F 60 15 130/80 H 91 L 12/21/17 16:58 12/21/17 16:58 12/21/17 16:58 12/21/17 16:58 12/21/17 16:58 Intake & Output 12/20/17 12/21/17 12/22/17 06:59 06:59 06:59 Intake Total 2457 2480 240 Output Total 3795 4175 1820 Balance -1338 -1695 -1580 Weight 111.8 kg 109.9 kg General appearance: PRESENT: no acute distress, morbidly obese Head exam: PRESENT: atraumatic, normocephalic Eye exam: ABSENT: conjunctival injection, scleral icterus Mouth exam: PRESENT: moist Respiratory exam: PRESENT: decreased breath sounds, unlabored, wheezes. ABSENT : rales, rhonchi Cardiovascular exam: PRESENT: RRR, systolic murmur Pulses: PRESENT: normal radial pulses GI/Abdominal exam: PRESENT: soft. ABSENT: distended, normal bowel sounds, tenderness Gentrourinary exam: ABSENT: indwelling catheter Extremities exam: ABSENT: pedal edema Musculoskeletal exam: ABSENT: deformity Neurological exam: PRESENT: alert, awake, oriented to person, oriented to place , oriented to situation, CN II-XII grossly intact Psychiatric exam: PRESENT: appropriate affect. ABSENT: anxious Skin exam: PRESENT: dry, intact, warm Results Laboratory Results: 12/21/17 04:00 12/21/17 04:00 12/20/17 12/21/17 12/21/17 20:26 04:00 04:00 WBC 4.8 RBC 5.86 H Hgb 12.9 L Hct 42.1 MCV 72 L MCH 22.0 L MCHC 30.6 L RDW 17.9 H Plt Count 177 Seg Neutrophils % Not Reportable Lymphocytes % Not Reportable Monocytes % Not Reportable Eosinophils % Not Reportable Basophils % Not Reportable Absolute Neutrophils Not Reportable Absolute Lymphocytes Not Reportable Absolute Monocytes Not Reportable Absolute Eosinophils Not Reportable Absolute Basophils Not Reportable Carbonic Acid HCO3/H2CO3 Ratio ABG pH ABG pCO2 ABG pO2 ABG HCO3 ABG O2 Saturation ABG Base Excess FiO2 Sodium 140.8 Potassium 4.9 Chloride 105 Carbon Dioxide 28 Anion Gap 8 BUN 38 H Creatinine 1.10 Est GFR ( Amer) > 60 Est GFR (Non-Af Amer) > 60 Glucose 129 H Calcium 9.3 Magnesium 2.0 Urine Color STRAW Urine Appearance CLEAR Urine pH 6.0 Ur Specific [place] 1.009 Urine Protein NEGATIVE Urine Glucose (UA) NEGATIVE Urine Ketones NEGATIVE Urine Blood NEGATIVE Urine Nitrite NEGATIVE Ur Leukocyte Esterase NEGATIVE Urine WBC (Auto) 0 Urine RBC (Auto) 0 12/21/17 08:18 WBC RBC Hgb Hct MCV MCH MCHC RDW Plt Count Seg Neutrophils % Lymphocytes % Monocytes % Eosinophils % Basophils % Absolute Neutrophils Absolute Lymphocytes Absolute Monocytes Absolute Eosinophils Absolute Basophils Carbonic Acid 1.22 HCO3/H2CO3 Ratio 21:1 ABG pH 7.42 ABG pCO2 40.6 ABG pO2 78.6 L ABG HCO3 25.8 H ABG O2 Saturation 95.8 ABG Base Excess 1.3 FiO2 2L Sodium Potassium Chloride Carbon Dioxide Anion Gap BUN Creatinine Est GFR ( Amer) Est GFR (Non-Af Amer) Glucose Calcium Magnesium Urine Color Urine Appearance Urine pH Ur Specific [place] Urine Protein Urine Glucose (UA) Urine Ketones Urine Blood Urine Nitrite Ur Leukocyte Esterase Urine WBC (Auto) Urine RBC (Auto) 12/19/17 09:10 Tracheal Aspirate Gram Stain - Final 12/19/17 09:10 Tracheal Aspirate Sputum Culture - Final NORMAL ELIZABETH 12/18/17 12/18/17 12/18/17 04:05 10:44 10:44 Creatine Kinase 80 CK-MB (CK-2) 2.22 Troponin I 0.058 0.038 12/18/17 16:08 Creatine Kinase CK-MB (CK-2) Troponin I 0.036 Impressions: Chest/Abdomen CTA 12/17/17 22:49 IMPRESSION:No evidence of pulmonary embolus Dependent atelectasis in the lower lobes and posterior aspects of the upper lobes bilaterally. Small amount of associated infiltrate in the lung bases cannot be entirely excluded on the basis of this exam Chest X-Ray 12/21/17 06:00 IMPRESSION: No significant change. Assessment & Plan - Diagnosis (1) Acute on chronic respiratory failure with hypoxia and hypercapnia Is this a current diagnosis for this admission?: Yes Plan: Secondary to COPD with exacerbation. The patient is now extubated and doing well. (2) Atrial fibrillation Qualifiers: Atrial fibrillation type: unspecified Qualified Code(s): I48.91 - Unspecified atrial fibrillation Is this a current diagnosis for this admission?: Yes Plan: He is rate controlled. He is on apixaban twice daily for anticoagulation. (3) Acute renal injury Is this a current diagnosis for this admission?: Yes Plan: Patient will try to stay well-hydrated and I will hold off on IV fluids for now. We will reassess BUN and creatinine tomorrow to see if further workup or intervention is indicated. (4) COPD with exacerbation Is this a current diagnosis for this admission?: Yes Plan: Exacerbation improving. Patient will continue on his long and short acting broncho-dilators. He will also continue on IV steroids with taper. (5) Chronic anticoagulation Is this a current diagnosis for this admission?: Yes Plan: Apixaban twice daily for A. fib, no bleeding complications. (6) Coronary artery disease Is this a current diagnosis for this admission?: Yes Plan: Stable, no evidence of acute ischemia, continue his cardiac meds Zetia/ fenofibrate, isosorbide and aspirin (7) Hypertension Qualifiers: Hypertension type: unspecified Qualified Code(s): I10 - Essential (primary ) hypertension Is this a current diagnosis for this admission?: Yes Plan: Blood pressures well controlled. Continue isosorbide (8) Chronic back pain Is this a current diagnosis for this admission?: Yes Plan: She feels better with his home Vicodin on board. Continue as needed morphine in case he has more severe pain related to having been in bed and acutely ill. - Time Time Spent with patient: 25-34 minutes Medications reviewed and adjusted accordingly: Yes - Inpatient Certification Based on my medical assessment, after consideration of the patient's comorbidities, presenting symptoms, or acuity I expect that the services needed warrant INPATIENT care.: Yes I certify that my determination is in accordance with my understanding of Medicare's requirements for reasonable and necessary INPATIENT services [42 CFR 412.3e].: Yes Medical Necessity: Need Close Monitoring Due to Risk of Patient Decompensation, Need for Nebulizer Therapy and Monitoring of Response, Risk of Complication if Not Cared For in Hospital
[2017-12-21] MEDS: CLONAZEPAM 1 MG TABLET PO SCH (21:20)
[2017-12-22] MEDS: IPRATROPIUM/ALBUTEROL 0.5-2.5 MG/3 ML AMPUL NEB SCH ×4 (02:24→20:26)
[2017-12-22 04:40] LABS: ABSOLUTE LYMPHOCYTES (AUTO) 0.3 10^3/uL (0.5-4.7); ABSOLUTE MONOCYTES (AUTO) 0.4 10^3/uL (0.1-1.4); ABSOLUTE NEUT (AUTO) 4.7 10^3/uL (1.7-8.2); HEMATOCRIT 42.5 % (37.9-51.0); HEMOGLOBIN 13.1 g/dL (13.5-17.0); LYMPHOCYTES % (AUTO) 5.3 % (13-45); MEAN CORPUSCULAR HEMOGLOBIN 22.2 pg (27.0-33.4); MEAN CORPUSCULAR HGB CONC 30.9 g/dL (32.0-36.0); MEAN CORPUSCULAR VOLUME 72 fl (80-97); MONOCYTES % (AUTO) 7.5 % (3-13); PLATELET COUNT 193 10^3/uL (150-450); RED BLOOD COUNT 5.91 10^6/uL (4.35-5.55); RED CELL DISTRIBUTION WIDTH 17.8 % (11.5-14.0); SEGMENTED NEUTROPHILS % (AUTO) 87.2 % (42-78); TOTAL CELLS COUNTED % (AUTO) 100 %; WHITE BLOOD COUNT 5.4 10^3/uL (4.0-10.5)
[2017-12-22 05:06] LABS: ANION GAP 9 (5-19); BLOOD UREA NITROGEN 39 mg/dL (7-20); CALCIUM 9.4 mg/dL (8.4-10.2); CARBON DIOXIDE 28 mmol/L (22-30); CHLORIDE 102 mmol/L (98-107); GLUCOSE 121 mg/dL (75-110); POTASSIUM 5.2 mmol/L (3.6-5.0); SODIUM 139.2 mmol/L (137-145)
[2017-12-22] MEDS: MORPHINE SULFATE 10 MG/ML INJ IV PRN ×3 (05:23→22:15)
[2017-12-22 05:42] LABS: ARTERIAL BLOOD BASE EXCESS 3.6 mmol/L; ARTERIAL BLOOD H2CO3 1.42 mmol/L (1.05-1.35); ARTERIAL BLOOD HCO3 29.1 mmol/L (20-24); ARTERIAL BLOOD O2 SATURATION 96.9 % (94-98); ARTERIAL BLOOD PCO2 47.2 mmHg (35-45); ARTERIAL BLOOD PH 7.41 (7.35-7.45); ARTERIAL BLOOD TOTAL CO2 30.6 mmol/L (23-27)
[2017-12-22 05:44] LABS: ARTERIAL BLOOD FIO2 2L
--- NOTE | 2017-12-22 06:37 | RADIOLOGY REPORT (SQ) ---
EXAM DESCRIPTION: XR CHEST 1 VIEW COMPLETED DATE/TME: 12/22/2017 06:00 CLINICAL HISTORY: 72 years Male, resp failure COMPARISON: One day prior. NUMBER OF VIEWS/TECHNIQUE: 1/AP FINDINGS: Small moderate bibasilar opacity-effusion, moderate lung volume, normal cardiac silhouette, atherosclerosis. Right cardiac stimulator with leads. No pneumothorax. Stable bony thorax. IMPRESSION: No significant change.
[2017-12-22] MEDS: ASPIRIN 325 MG TABLET, ENT COATED PO SCH (11:20)
[2017-12-22] MEDS: APIXABAN 5 MG TABLET PO SCH ×2 (11:20→21:04)
[2017-12-22] MEDS: HYDROCODONE/ACETAMINOPHEN 7.5-325 MG TABLET PO PRN (11:20)
[2017-12-22] MEDS: LEVOFLOXACIN 750 MG TABLET PO SCH (11:20)
[2017-12-22] MEDS: DOCUSATE SODIUM 100 MG CAPSULE PO SCH ×2 (11:20→17:55)
[2017-12-22] MEDS: EZETIMIBE 10 MG TABLET PO SCH (11:21)
[2017-12-22] MEDS: FENOFIBRATE NANOCRYSTALLIZED 145 MG TABLET PO SCH (11:21)
[2017-12-22] MEDS: ISOSORBIDE MONONITRATE 30 MG TAB.ER.24H PO SCH (11:21)
[2017-12-22] MEDS: FOLIC ACID 1 MG TABLET PO SCH (11:21)
[2017-12-22] MEDS: PREDNISONE 20 MG TABLET PO SCH ×2 (11:22→17:55)
--- NOTE | 2017-12-22 13:22 | PDOC PROGRESS REPORT ---
Subjective Progress Note for:: 12/22/17 Subjective:: better Reason For Visit: ACUTE HYPOXIC RESPIRATORY FAILURE, COPD Physical Exam Vital Signs: Temp Pulse Resp BP Pulse Ox 98.4 F 71 16 126/60 H 95 12/22/17 08:00 12/22/17 08:36 12/22/17 08:36 12/22/17 08:00 12/22/17 08:36 Intake & Output 12/21/17 12/22/17 12/23/17 06:59 06:59 06:59 Intake Total 2480 240 300 Output Total 4175 3560 220 Balance -2856 -3915 80 Weight 109.9 kg 108.6 kg General appearance: PRESENT: no acute distress, cooperative, disheveled Head exam: PRESENT: atraumatic, normocephalic Eye exam: PRESENT: conjunctiva pale, EOMI, PERRLA Mouth exam: PRESENT: moist, neck supple, tongue midline Neck exam: ABSENT: thyromegaly, tracheal deviation, tracheostomy Respiratory exam: PRESENT: prolonged expiratory phas, rhonchi, symmetrical, unlabored. ABSENT: rales, retraction, stridor, tachypnea Cardiovascular exam: PRESENT: RRR, +S1, +S2 Pulses: PRESENT: normal radial pulses GI/Abdominal exam: PRESENT: normal bowel sounds, soft. ABSENT: tenderness Gentrourinary exam: PRESENT: indwelling catheter Extremities exam: ABSENT: calf tenderness, clubbing, +1 edema, +2 edema Musculoskeletal exam: ABSENT: ambulatory, deformity, dislocation Neurological exam: PRESENT: alert, awake Psychiatric exam: PRESENT: normal mood Skin exam: PRESENT: dry, warm Results Laboratory Results: 12/22/17 04:00 12/22/17 04:00 12/22/17 12/22/17 12/22/17 04:00 04:00 05:25 WBC 5.4 RBC 5.91 H Hgb 13.1 L Hct 42.5 MCV 72 L MCH 22.2 L MCHC 30.9 L RDW 17.8 H Plt Count 193 Seg Neutrophils % 87.2 H Lymphocytes % 5.3 L Monocytes % 7.5 Eosinophils % 0.0 Basophils % 0.0 Absolute Neutrophils 4.7 Absolute Lymphocytes 0.3 L Absolute Monocytes 0.4 Absolute Eosinophils 0.0 Absolute Basophils 0.0 Carbonic Acid 1.42 H HCO3/H2CO3 Ratio 20:1 ABG pH 7.41 ABG pCO2 47.2 H ABG pO2 90.0 ABG HCO3 29.1 H ABG O2 Saturation 96.9 ABG Base Excess 3.6 FiO2 2L Sodium 139.2 Potassium 5.2 H Chloride 102 Carbon Dioxide 28 Anion Gap 9 BUN 39 H Creatinine 1.11 Est GFR ( Amer) > 60 Est GFR (Non-Af Amer) > 60 Glucose 121 H Calcium 9.4 Magnesium 2.1 12/19/17 09:10 Tracheal Aspirate Gram Stain - Final 12/19/17 09:10 Tracheal Aspirate Sputum Culture - Final NORMAL ELIZABETH 12/18/17 12/18/17 12/18/17 04:05 10:44 10:44 Creatine Kinase 80 CK-MB (CK-2) 2.22 Troponin I 0.058 0.038 12/18/17 16:08 Creatine Kinase CK-MB (CK-2) Troponin I 0.036 Impressions: Chest/Abdomen CTA 12/17/17 22:49 IMPRESSION:No evidence of pulmonary embolus Dependent atelectasis in the lower lobes and posterior aspects of the upper lobes bilaterally. Small amount of associated infiltrate in the lung bases cannot be entirely excluded on the basis of this exam Chest X-Ray 12/22/17 06:00 IMPRESSION: No significant change. Assessment & Plan - Diagnosis (1) Acute on chronic respiratory failure with hypoxia and hypercapnia Is this a current diagnosis for this admission?: Yes Plan: continue to improved (2) Atrial fibrillation Qualifiers: Atrial fibrillation type: unspecified Qualified Code(s): I48.91 - Unspecified atrial fibrillation Is this a current diagnosis for this admission?: Yes Plan: Stable ventricular response (3) COPD (chronic obstructive pulmonary disease) Is this a current diagnosis for this admission?: Yes Plan: Yudelka + laba +long acting muscarinic agent (4) Obesity Is this a current diagnosis for this admission?: Yes (5) Obstructive sleep apnea Is this a current diagnosis for this admission?: Yes Plan: We will need to wear BiPAP whenever patient is asleep - Time Total Critical Time (Minutes): 40
--- NOTE | 2017-12-22 16:32 | PDOC PROGRESS REPORT ---
Subjective Progress Note for:: 12/22/17 Subjective:: Patient is breathing better today. Still feels extremely weak. Back pain persists but is improving. He is eating and drinking a little bit better today but his appetite is poor. No chest pain fever chills or sputum production. Reason For Visit: ACUTE HYPOXIC RESPIRATORY FAILURE, COPD Physical Exam Vital Signs: Temp Pulse Resp BP Pulse Ox 99.7 F 60 13 128/72 H 97 12/22/17 12:00 12/22/17 14:11 12/22/17 15:00 12/22/17 12:30 12/22/17 14:11 Intake & Output 12/21/17 12/22/17 12/23/17 06:59 06:59 06:59 Intake Total 2480 240 300 Output Total 4175 3560 470 Balance -7492 -0168 -856 Weight 109.9 kg 108.6 kg General appearance: PRESENT: no acute distress, obese Eye exam: ABSENT: conjunctival injection, scleral icterus Mouth exam: PRESENT: moist Respiratory exam: PRESENT: decreased breath sounds, unlabored. ABSENT: rales, rhonchi, wheezes Cardiovascular exam: PRESENT: RRR. ABSENT: systolic murmur GI/Abdominal exam: PRESENT: normal bowel sounds, soft. ABSENT: distended, guarding, tenderness Extremities exam: ABSENT: pedal edema Neurological exam: PRESENT: alert, awake, oriented to person, oriented to place , oriented to situation, CN II-XII grossly intact Psychiatric exam: PRESENT: appropriate affect. ABSENT: anxious Skin exam: PRESENT: dry, intact, warm Results Laboratory Results: 12/22/17 04:00 12/22/17 12/22/17 12/22/17 04:00 04:00 05:25 WBC 5.4 RBC 5.91 H Hgb 13.1 L Hct 42.5 MCV 72 L MCH 22.2 L MCHC 30.9 L RDW 17.8 H Plt Count 193 Seg Neutrophils % 87.2 H Lymphocytes % 5.3 L Monocytes % 7.5 Eosinophils % 0.0 Basophils % 0.0 Absolute Neutrophils 4.7 Absolute Lymphocytes 0.3 L Absolute Monocytes 0.4 Absolute Eosinophils 0.0 Absolute Basophils 0.0 Carbonic Acid 1.42 H HCO3/H2CO3 Ratio 20:1 ABG pH 7.41 ABG pCO2 47.2 H ABG pO2 90.0 ABG HCO3 29.1 H ABG O2 Saturation 96.9 ABG Base Excess 3.6 FiO2 2L Sodium 139.2 Potassium 5.2 H Chloride 102 Carbon Dioxide 28 Anion Gap 9 BUN 39 H Creatinine 1.11 Est GFR ( Amer) > 60 Est GFR (Non-Af Amer) > 60 Glucose 121 H Calcium 9.4 Magnesium 2.1 12/18/17 12/18/17 12/18/17 04:05 10:44 10:44 Creatine Kinase 80 CK-MB (CK-2) 2.22 Troponin I 0.058 0.038 12/18/17 16:08 Creatine Kinase CK-MB (CK-2) Troponin I 0.036 Impressions: Chest/Abdomen CTA 12/17/17 22:49 IMPRESSION:No evidence of pulmonary embolus Dependent atelectasis in the lower lobes and posterior aspects of the upper lobes bilaterally. Small amount of associated infiltrate in the lung bases cannot be entirely excluded on the basis of this exam Chest X-Ray 12/22/17 06:00 IMPRESSION: No significant change. Assessment & Plan - Diagnosis (1) Acute on chronic respiratory failure with hypoxia and hypercapnia Is this a current diagnosis for this admission?: Yes Plan: Significantly improved, doing well postextubation which happened yesterday. Continue COPD medications and Levaquin for COPD exacerbation. Continue steroid taper. (2) Atrial fibrillation Qualifiers: Atrial fibrillation type: unspecified Qualified Code(s): I48.91 - Unspecified atrial fibrillation Is this a current diagnosis for this admission?: Yes Plan: Is rate controlled. Not On rate control medication. He is anticoagulated with Eliquis. (3) Acute renal injury Is this a current diagnosis for this admission?: Yes Plan: Patient is BUN has been slowly rising over the past few days. Not entirely clear etiology though could be due to water depletion. Encouraged water intake. Will check cardiac enzymes. No evidence of obstruction though post renal causes could be considered. Will recheck BUN in the morning. (4) COPD with exacerbation Is this a current diagnosis for this admission?: Yes Plan: Improved. Continue Levaquin for a total of 5-7 days and continue with steroid taper. We will continue his q. 6-hour duo nebs as well. (5) Chronic anticoagulation Is this a current diagnosis for this admission?: Yes Plan: Continue Eliquis for A. fib stroke prophylaxis (6) Coronary artery disease Is this a current diagnosis for this admission?: Yes Plan: Slightly elevated troponin during the height of his respiratory distress that trended down. Heat cardiac enzymes pending. We will continue his cardiac meds for now. (7) Hypertension Qualifiers: Hypertension type: unspecified Qualified Code(s): I10 - Essential (primary ) hypertension Is this a current diagnosis for this admission?: Yes Plan: Well-controlled on isosorbide, continue this medication (8) Chronic back pain Is this a current diagnosis for this admission?: Yes Plan: Continue the patient's [place]. He also has as needed morphine available for the back pain which seems to be made worse by the hospital bed. Physical therapy has been ordered. - Time Time Spent with patient: 15-24 minutes Medications reviewed and adjusted accordingly: Yes - Inpatient Certification Based on my medical assessment, after consideration of the patient's comorbidities, presenting symptoms, or acuity I expect that the services needed warrant INPATIENT care.: Yes I certify that my determination is in accordance with my understanding of Medicare's requirements for reasonable and necessary INPATIENT services [42 CFR 412.3e].: Yes Medical Necessity: Need Close Monitoring Due to Risk of Patient Decompensation, Need for Nebulizer Therapy and Monitoring of Response, Risk of Complication if Not Cared For in Hospital
[2017-12-22 16:47] LABS: ANION GAP 10 (5-19); BLOOD UREA NITROGEN 43 mg/dL (7-20); CARBON DIOXIDE 30 mmol/L (22-30); CHLORIDE 98 mmol/L (98-107); GLUCOSE 114 mg/dL (75-110); POTASSIUM 5.3 mmol/L (3.6-5.0); SODIUM 137.8 mmol/L (137-145)
[2017-12-22 18:26] LABS: APPEARANCE,URINE CLEAR; BILIRUBIN,URINE NEGATIVE (NEGATIVE); COLOR,URINE YELLOW; GLUCOSE, URINE NEGATIVE (NEGATIVE); KETONES,URINE NEGATIVE (NEGATIVE); LEUKOCYTE ESTERASE,URINE NEGATIVE (NEGATIVE); NITRITE,URINE NEGATIVE (NEGATIVE); PROTEIN,URINE NEGATIVE (NEGATIVE); UROBILINOGEN,URINE NEGATIVE mg/dL (<2.0)
[2017-12-22 19:09] LABS: CREATINE KINASE MB 1.86 ng/mL (<4.55); TROPONIN I 0.019 ng/mL
[2017-12-22] MEDS ORDERED: SODIUM POLYSTYRENE SULFONATE 15 GM/60 ML PO ONE (19:23)
[2017-12-22] MEDS: CLONAZEPAM 1 MG TABLET PO SCH (21:04)
[2017-12-22 22:59] LABS: CREATINE KINASE MB 1.6 ng/mL (<4.55); TROPONIN I 0.015 ng/mL
[2017-12-23] MEDS: IPRATROPIUM/ALBUTEROL 0.5-2.5 MG/3 ML AMPUL NEB SCH ×4 (02:56→20:22)
[2017-12-23 05:05] LABS: ABSOLUTE LYMPHOCYTES (AUTO) 0.4 10^3/uL (0.5-4.7); ABSOLUTE MONOCYTES (AUTO) 0.5 10^3/uL (0.1-1.4); ABSOLUTE NEUT (AUTO) 5.3 10^3/uL (1.7-8.2); BASOPHILS % (AUTO) 0.2 % (0-2); EOSINOPHILS % (AUTO) 0.2 % (0-6); HEMATOCRIT 44.7 % (37.9-51.0); HEMOGLOBIN 13.7 g/dL (13.5-17.0); LYMPHOCYTES % (AUTO) 6.1 % (13-45); MEAN CORPUSCULAR HEMOGLOBIN 21.8 pg (27.0-33.4); MEAN CORPUSCULAR HGB CONC 30.7 g/dL (32.0-36.0); MEAN CORPUSCULAR VOLUME 71 fl (80-97); MONOCYTES % (AUTO) 8.3 % (3-13); PLATELET COUNT 219 10^3/uL (150-450); RED BLOOD COUNT 6.29 10^6/uL (4.35-5.55); RED CELL DISTRIBUTION WIDTH 17.6 % (11.5-14.0); SEGMENTED NEUTROPHILS % (AUTO) 85.2 % (42-78); TOTAL CELLS COUNTED % (AUTO) 100 %; WHITE BLOOD COUNT 6.3 10^3/uL (4.0-10.5)
[2017-12-23 05:23] LABS: ANION GAP 8 (5-19); BLOOD UREA NITROGEN 42 mg/dL (7-20); CALCIUM 9.7 mg/dL (8.4-10.2); CARBON DIOXIDE 33 mmol/L (22-30); CHLORIDE 98 mmol/L (98-107); CREATINE KINASE 44 U/L (55-170); GLUCOSE 118 mg/dL (75-110); SODIUM 138.7 mmol/L (137-145)
[2017-12-23 05:33] LABS: CREATINE KINASE MB 1.43 ng/mL (<4.55); TROPONIN I 0.016 ng/mL
[2017-12-23 05:57] LABS: ARTERIAL BLOOD BASE EXCESS 3.6 mmol/L; ARTERIAL BLOOD H2CO3 1.26 mmol/L (1.05-1.35); ARTERIAL BLOOD O2 SATURATION 93.4 % (94-98); ARTERIAL BLOOD PCO2 41.8 mmHg (35-45); ARTERIAL BLOOD PH 7.44 (7.35-7.45); ARTERIAL BLOOD PO2 64.8 mmHg (80-100); ARTERIAL BLOOD TOTAL CO2 29.3 mmol/L (23-27)
[2017-12-23 05:58] LABS: ARTERIAL BLOOD FIO2 ROOM AIR
--- NOTE | 2017-12-23 07:13 | RADIOLOGY REPORT (SQ) ---
EXAM DESCRIPTION: XR CHEST 1 VIEW COMPLETED DATE/TME: 12/23/2017 06:00 CLINICAL HISTORY: 72 years Male, resp failure COMPARISON: One day prior. NUMBER OF VIEWS/TECHNIQUE: 1/AP FINDINGS: Moderate lung volume, moderate bilateral basilar opacity-effusion, normal cardiac silhouette, atherosclerosis, right cardiac stability with leads. No pneumothorax. Stable bony thorax. IMPRESSION: No significant change.
[2017-12-23] MEDS: MORPHINE SULFATE 10 MG/ML INJ IV PRN ×2 (07:33→16:01)
[2017-12-23] MEDS ORDERED: RINGERS SOLUTION,LACTATED 1,000 ML IV PRN (09:09)
[2017-12-23] MEDS: POLYETHYLENE GLYCOL 3350 POWDER 17 GM/1 PACKET PO SCH ×2 (09:41→17:09)
[2017-12-23] MEDS: FENOFIBRATE NANOCRYSTALLIZED 145 MG TABLET PO SCH (09:42)
[2017-12-23] MEDS: ISOSORBIDE MONONITRATE 30 MG TAB.ER.24H PO SCH (09:42)
[2017-12-23] MEDS: PREDNISONE 20 MG TABLET PO SCH ×2 (09:42→17:09)
[2017-12-23] MEDS: DOCUSATE SODIUM 100 MG CAPSULE PO SCH ×2 (09:42→17:09)
[2017-12-23] MEDS: EZETIMIBE 10 MG TABLET PO SCH (09:42)
[2017-12-23] MEDS: LEVOFLOXACIN 750 MG TABLET PO SCH (09:42)
[2017-12-23] MEDS: ASPIRIN 325 MG TABLET, ENT COATED PO SCH (09:42)
[2017-12-23] MEDS: APIXABAN 5 MG TABLET PO SCH ×2 (09:42→21:40)
[2017-12-23] MEDS: LACTULOSE SYRUP 20 GM/30 ML UDCUP PO SCH ×4 (09:42→21:39)
[2017-12-23] MEDS: FOLIC ACID 1 MG TABLET PO SCH (09:42)
--- NOTE | 2017-12-23 11:33 | PDOC PROGRESS REPORT ---
Subjective Progress Note for:: 12/23/17 Subjective:: ALEX MALLORY is a 72 year old male with history of COPD not on home oxygen who has been intubated in the emergency department. Unable to obtain information from him and his girlfriend has left home. As per ED attending note the patient came to the emergency department complaining of shortness of breath has been going on for the last 2 weeks with mild intermittent cough, patient has a pulse oximeter at home was reading in the 70s, apparently the patient has been having intermittent bouts of confusion before coming to the hospital. He denies fever, chest pain, lower extremity swelling. Patient is on Eliquis. Patient is former smoker about 20 years ago. Patient was placed on a mechanical ventilator and has subsequently been weaned. Currently satting in the high 90% on room air. Complaint of constipation has not had a bowel movement since admission. Has been ambulating in the room. Reason For Visit: ACUTE HYPOXIC RESPIRATORY FAILURE, COPD Physical Exam Vital Signs: Temp Pulse Resp BP Pulse Ox 98.2 F 64 16 116/71 97 12/23/17 03:59 12/23/17 08:44 12/23/17 10:00 12/23/17 09:37 12/23/17 02:56 Intake & Output 12/22/17 12/23/17 12/24/17 06:59 06:59 06:59 Intake Total 240 1100 900 Output Total 3560 4170 750 Balance -3320 -3070 150 Weight 108.6 kg 108 kg General appearance: PRESENT: no acute distress, well-developed, well-nourished Eye exam: PRESENT: conjunctiva pink, EOMI, PERRLA. ABSENT: scleral icterus Neck exam: ABSENT: carotid bruit, JVD, lymphadenopathy, thyromegaly Respiratory exam: PRESENT: clear to auscultation cody. ABSENT: rales, rhonchi, wheezes Cardiovascular exam: PRESENT: RRR. ABSENT: diastolic murmur, rubs, systolic murmur GI/Abdominal exam: PRESENT: normal bowel sounds, soft. ABSENT: distended, guarding, mass, organolmegaly, rebound, tenderness Musculoskeletal exam: PRESENT: ambulatory, full ROM, normal inspection. ABSENT : tenderness Skin exam: PRESENT: dry, intact, warm. ABSENT: cyanosis, rash Results Laboratory Results: 12/23/17 04:45 12/23/17 04:45 12/22/17 12/22/17 12/23/17 16:00 18:00 04:45 WBC 6.3 RBC 6.29 H Hgb 13.7 Hct 44.7 MCV 71 L MCH 21.8 L MCHC 30.7 L RDW 17.6 H Plt Count 219 Seg Neutrophils % 85.2 H Lymphocytes % 6.1 L Monocytes % 8.3 Eosinophils % 0.2 Basophils % 0.2 Absolute Neutrophils 5.3 Absolute Lymphocytes 0.4 L Absolute Monocytes 0.5 Absolute Eosinophils 0.0 Absolute Basophils 0.0 Carbonic Acid HCO3/H2CO3 Ratio ABG pH ABG pCO2 ABG pO2 ABG HCO3 ABG O2 Saturation ABG Base Excess FiO2 Sodium 137.8 Potassium 5.3 H Chloride 98 Carbon Dioxide 30 Anion Gap 10 BUN 43 H Creatinine 1.21 Est GFR ( Amer) > 60 Est GFR (Non-Af Amer) 59 L Glucose 114 H Calcium 10.0 Magnesium Urine Color YELLOW Urine Appearance CLEAR Urine pH 6.0 Ur Specific [place] 1.010 Urine Protein NEGATIVE Urine Glucose (UA) NEGATIVE Urine Ketones NEGATIVE Urine Blood NEGATIVE Urine Nitrite NEGATIVE Ur Leukocyte Esterase NEGATIVE Urine WBC (Auto) 1 Urine RBC (Auto) 1 12/23/17 12/23/17 04:45 05:38 WBC RBC Hgb Hct MCV MCH MCHC RDW Plt Count Seg Neutrophils % Lymphocytes % Monocytes % Eosinophils % Basophils % Absolute Neutrophils Absolute Lymphocytes Absolute Monocytes Absolute Eosinophils Absolute Basophils Carbonic Acid 1.26 HCO3/H2CO3 Ratio 22:1 ABG pH 7.44 ABG pCO2 41.8 ABG pO2 64.8 L ABG HCO3 28.0 H ABG O2 Saturation 93.4 L ABG Base Excess 3.6 FiO2 ROOM AIR Sodium 138.7 Potassium 5.0 Chloride 98 Carbon Dioxide 33 H Anion Gap 8 BUN 42 H Creatinine 1.17 Est GFR ( Amer) > 60 Est GFR (Non-Af Amer) > 60 Glucose 118 H Calcium 9.7 Magnesium 2.1 Urine Color Urine Appearance Urine pH Ur Specific [place] Urine Protein Urine Glucose (UA) Urine Ketones Urine Blood Urine Nitrite Ur Leukocyte Esterase Urine WBC (Auto) Urine RBC (Auto) 12/18/17 12/18/17 12/18/17 04:05 10:44 10:44 Creatine Kinase 80 CK-MB (CK-2) 2.22 Troponin I 0.058 0.038 12/18/17 12/22/17 12/22/17 16:08 16:00 18:09 Creatine Kinase 47 L CK-MB (CK-2) 1.86 Troponin I 0.036 0.019 12/22/17 12/22/17 12/23/17 22:22 22:22 04:45 Creatine Kinase 50 L 44 L CK-MB (CK-2) 1.60 Troponin I 0.015 12/23/17 04:45 Creatine Kinase CK-MB (CK-2) 1.43 Troponin I 0.016 Impressions: Chest/Abdomen CTA 12/17/17 22:49 IMPRESSION:No evidence of pulmonary embolus Dependent atelectasis in the lower lobes and posterior aspects of the upper lobes bilaterally. Small amount of associated infiltrate in the lung bases cannot be entirely excluded on the basis of this exam Chest X-Ray 12/23/17 06:00 IMPRESSION: No significant change. Assessment & Plan - Diagnosis (2) COPD with exacerbation Is this a current diagnosis for this admission?: Yes Plan: Empirically on Levaquin complete 7-day course to complete on December 28 (3) Hypertension Qualifiers: Hypertension type: unspecified Qualified Code(s): I10 - Essential (primary ) hypertension Is this a current diagnosis for this admission?: Yes Plan: Normotensive no change in medications to monitor (4) Obstructive sleep apnea Is this a current diagnosis for this admission?: Yes Plan: On CPAP at night (5) Atrial fibrillation Qualifiers: Atrial fibrillation type: paroxysmal Qualified Code(s): I48.0 - Paroxysmal atrial fibrillation Is this a current diagnosis for this admission?: Yes Plan: Patient remains in sinus rhythm. Continue Eliquis. He is not on no negative chronotropic drugs at home. (6) Chronic anticoagulation Is this a current diagnosis for this admission?: Yes Plan: Eliquis 5 mg twice daily (7) Constipation Qualifiers: Constipation type: unspecified constipation type Qualified Code(s): K59.00 - Constipation, unspecified Is this a current diagnosis for this admission?: Yes Plan: This appears to be a chronic issue for this patient. We will add MiraLAX twice daily and give 4 doses of lactulose. Will recommend patient see a rice farmer and consider Linzess for chronic constipation. - Time Time Spent with patient: 25-34 minutes Anticipated discharge: Home Within: within 24 hours
[2017-12-23] MEDS: HYDROCODONE/ACETAMINOPHEN 7.5-325 MG TABLET PO PRN (18:36)
[2017-12-23] MEDS: CLONAZEPAM 1 MG TABLET PO SCH (21:39)
[2017-12-24] MEDS: MORPHINE SULFATE 10 MG/ML INJ IV PRN (00:02)
[2017-12-24] MEDS: IPRATROPIUM/ALBUTEROL 0.5-2.5 MG/3 ML AMPUL NEB SCH ×2 (01:45→09:20)
[2017-12-24 04:15] LABS: ABSOLUTE LYMPHOCYTES (AUTO) 0.3 10^3/uL (0.5-4.7); ABSOLUTE MONOCYTES (AUTO) 0.5 10^3/uL (0.1-1.4); ABSOLUTE NEUT (AUTO) 4.6 10^3/uL (1.7-8.2); BASOPHILS % (AUTO) 0.3 % (0-2); HEMOGLOBIN 13.6 g/dL (13.5-17.0); LYMPHOCYTES % (AUTO) 5.2 % (13-45); MEAN CORPUSCULAR HEMOGLOBIN 22.1 pg (27.0-33.4); MEAN CORPUSCULAR VOLUME 71 fl (80-97); MONOCYTES % (AUTO) 9.6 % (3-13); PLATELET COUNT 176 10^3/uL (150-450); RED BLOOD COUNT 6.16 10^6/uL (4.35-5.55); RED CELL DISTRIBUTION WIDTH 17.5 % (11.5-14.0); SEGMENTED NEUTROPHILS % (AUTO) 84.9 % (42-78); TOTAL CELLS COUNTED % (AUTO) 100 %; WHITE BLOOD COUNT 5.4 10^3/uL (4.0-10.5)
[2017-12-24 04:27] LABS: ANION GAP 7 (5-19); BLOOD UREA NITROGEN 36 mg/dL (7-20); CALCIUM 9.4 mg/dL (8.4-10.2); CARBON DIOXIDE 33 mmol/L (22-30); CHLORIDE 99 mmol/L (98-107); PHOSPHORUS 4.7 mg/dL (2.5-4.5); POTASSIUM 4.8 mmol/L (3.6-5.0); SODIUM 138.6 mmol/L (137-145)
[2017-12-24 04:28] LABS: GLUCOSE 113 mg/dL (75-110)
[2017-12-24] MEDS: HYDROCODONE/ACETAMINOPHEN 7.5-325 MG TABLET PO PRN (08:20)
[2017-12-24] MEDS: ISOSORBIDE MONONITRATE 30 MG TAB.ER.24H PO SCH (09:07)
[2017-12-24] MEDS: EZETIMIBE 10 MG TABLET PO SCH (09:07)
[2017-12-24] MEDS: ASPIRIN 325 MG TABLET, ENT COATED PO SCH (09:07)
[2017-12-24] MEDS: DOCUSATE SODIUM 100 MG CAPSULE PO SCH (09:07)
[2017-12-24] MEDS: PREDNISONE 20 MG TABLET PO SCH (09:07)
[2017-12-24] MEDS: FOLIC ACID 1 MG TABLET PO SCH (09:07)
[2017-12-24] MEDS: POLYETHYLENE GLYCOL 3350 POWDER 17 GM/1 PACKET PO SCH (09:07)
[2017-12-24] MEDS: APIXABAN 5 MG TABLET PO SCH (09:08)
[2017-12-24] MEDS: FENOFIBRATE NANOCRYSTALLIZED 145 MG TABLET PO SCH (09:08)
[2017-12-24] MEDS: LEVOFLOXACIN 750 MG TABLET PO SCH (09:08)
--- NOTE | 2017-12-24 09:52 | PDOC DISCHARGE SUMMARY ---
General - Admit/Disc Date/PCP Admission Date/Primary Care Provider: 12/17/17 23:44 Discharge Date: 12/24/17 - Discharge Diagnosis (2) COPD with exacerbation Is this a current diagnosis for this admission?: Yes (3) Hypertension Is this a current diagnosis for this admission?: Yes (4) Obstructive sleep apnea Is this a current diagnosis for this admission?: Yes (5) Atrial fibrillation Is this a current diagnosis for this admission?: Yes (6) Chronic anticoagulation Is this a current diagnosis for this admission?: Yes (7) Constipation Is this a current diagnosis for this admission?: Yes - Additional Information Resuscitation Status: Full Code Discharge Diet: Cardiac Discharge Activity: Activity As Tolerated Prescriptions: Prednisone [Deltasone 20 mg Tablet] 40 mg PO DAILY #15 tablet Home Medications: Albuterol Sulfate [Proair HFA Inhalation Aerosol 8.5 gm MDI] 2 puff IH Q6HP PRN 12/18/17 Apixaban [Eliquis 5 mg Tablet] 5 mg PO Q12 12/18/17 Aspirin [Ecotrin 325 mg EC Tablet] 325 mg PO DAILY 12/18/17 Clonazepam [Klonopin 1 mg Tablet] 1 mg PO QHS 12/18/17 Docusate Sodium [Colace 100 mg Capsule] 100 mg PO BID 12/18/17 Esomeprazole Magnesium [Nexium] 40 mg PO DAILY 12/18/17 Ezetimibe [Zetia 10 mg Tablet] 10 mg PO DAILY 12/18/17 Fenofibrate Nanocrystallized [Fenofibrate] 145 mg PO DAILY 12/18/17 Folic Acid 1 mg PO DAILY 12/18/17 Hydrocodone/Acetaminophen [Hydrocodone-Acetamin 7.5-325] 1 tab PO DAILYP PRN Isosorbide Mononitrate [Isosorbide Mononitrate ER] 30 mg PO DAILY 12/18/17 Nitroglycerin [Nitrostat 0.4 mg (1/150 Gr) Tabs 25/Bottle] 0.4 mg SL Q5MP PRN Folic Acid [Folvite 1 mg Tablet] 1 mg PO DAILY tablet 12/24/17 Polyethylene Glycol 3350 [Miralax Powder 17 gm/Packet] 17 gm PO BID powd.pack 12/24/17 Prednisone [Deltasone 20 mg Tablet] 40 mg PO DAILY #15 tablet 12/24/17 History of Present Illness History of Present Illness: ALEX MALLORY is a 72 year old male with history of COPD not on home oxygen who has been intubated in the emergency department. Unable to obtain information from him and his girlfriend has left home. As per ED attending note the patient came to the emergency department complaining of shortness of breath has been going on for the last 2 weeks with mild intermittent cough, patient has a pulse oximeter at home was reading in the 70s, apparently the patient has been having intermittent bouts of confusion before coming to the hospital. He denies fever, chest pain, lower extremity swelling. Patient is on Eliquis. Patient is former smoker about 20 years ago. In the emergency department initial oxygen saturation was 88%, the patient was wheezing, was given nebulizer treatments and IV magnesium, apparently initially was doing well but suddenly his oxygen saturation dropped to the 70s, patient was placed on nonrebreather and despite oxygen saturation was dropping even more, was very confused and started picking on his hands, suddenly patient turned cyanotic. Decision was made to emergently intubate him and place him on mechanical ventilator. Hospital Course Hospital Course: Patient was intubated and placed on a mechanical ventilator. Consultation with Dr. Atkinson of pulmonary was obtained. Patient was empirically treated with Levaquin IV antibiotic. Patient improved and was eventually weaned from the ventilator. Patient has obstructive sleep apnea was recommended that he uses BiPAP continuously when sleeping to avoid hypercapnia. He was placed on a steroid taper. While in the hospital he remained on his anticoagulation for his paroxysmal atrial fibrillation. Patient is on chronic opioid therapy for low back pain and experience some constipation he was given laxatives and an enema prior to discharge. He was counseled that he should maintain a good bowel regimen if he is to be on chronic opioid therapy. He is to follow-up with his primary care provider in 7-10 days. And was given a referral to Dr. inman for pulmonary management. Physical Exam Vital Signs: Temp Pulse Resp BP Pulse Ox 97.5 F 66 16 119/72 99 12/24/17 03:38 12/24/17 09:20 12/24/17 09:20 12/24/17 07:47 12/24/17 09:20 Intake & Output 12/23/17 12/24/17 12/25/17 06:59 06:59 06:59 Intake Total 3108 315 9942 Output Total 4170 2430 Balance -3070 -2950 1000 Weight 108 kg 100.7 kg General appearance: PRESENT: no acute distress, well-developed, well-nourished Eye exam: PRESENT: conjunctiva pink, EOMI, PERRLA. ABSENT: scleral icterus Mouth exam: PRESENT: moist, tongue midline Neck exam: ABSENT: carotid bruit, JVD, lymphadenopathy, thyromegaly Respiratory exam: PRESENT: clear to auscultation cody. ABSENT: rales, rhonchi, wheezes Cardiovascular exam: PRESENT: RRR. ABSENT: diastolic murmur, rubs, systolic murmur GI/Abdominal exam: PRESENT: normal bowel sounds, soft. ABSENT: distended, guarding, mass, organolmegaly, rebound, tenderness Extremities exam: PRESENT: full ROM. ABSENT: calf tenderness, clubbing, pedal edema Results Laboratory Results: 12/24/17 04:05 12/24/17 04:05 12/24/17 12/24/17 04:05 04:05 WBC 5.4 RBC 6.16 H Hgb 13.6 Hct 44.0 MCV 71 L MCH 22.1 L MCHC 31.0 L RDW 17.5 H Plt Count 176 Seg Neutrophils % 84.9 H Lymphocytes % 5.2 L Monocytes % 9.6 Eosinophils % 0.0 Basophils % 0.3 Absolute Neutrophils 4.6 Absolute Lymphocytes 0.3 L Absolute Monocytes 0.5 Absolute Eosinophils 0.0 Absolute Basophils 0.0 Sodium 138.6 Potassium 4.8 Chloride 99 Carbon Dioxide 33 H Anion Gap 7 BUN 36 H Creatinine 1.12 Est GFR ( Amer) > 60 Est GFR (Non-Af Amer) > 60 Glucose 113 H Calcium 9.4 Phosphorus 4.7 H 12/18/17 12/18/17 12/18/17 04:05 10:44 10:44 Creatine Kinase 80 CK-MB (CK-2) 2.22 Troponin I 0.058 0.038 12/18/17 12/22/17 12/22/17 16:08 16:00 18:09 Creatine Kinase 47 L CK-MB (CK-2) 1.86 Troponin I 0.036 0.019 12/22/17 12/22/17 12/23/17 22:22 22:22 04:45 Creatine Kinase 50 L 44 L CK-MB (CK-2) 1.60 Troponin I 0.015 12/23/17 04:45 Creatine Kinase CK-MB (CK-2) 1.43 Troponin I 0.016 Impressions: Chest/Abdomen CTA 12/17/17 22:49 IMPRESSION:No evidence of pulmonary embolus Dependent atelectasis in the lower lobes and posterior aspects of the upper lobes bilaterally. Small amount of associated infiltrate in the lung bases cannot be entirely excluded on the basis of this exam Chest X-Ray 12/23/17 06:00 IMPRESSION: No significant change. Qualifiers - * PATIENT BEING DISCHARGED WITH ANY OF THE FOLLOWING DIAGNOSIS: No Plan Discharge Plan: Prednisone taper follow-up with primary care provider. Time Spent: Greater than 30 Minutes
[2017-12-24 10:43] VITALS: BP 128/72
--- NOTE | 2017-12-27 11:58 | PDOC PROGRESS REPORT ---
Subjective Progress Note for:: 12/24/17 Subjective:: better Reason For Visit: ACUTE HYPOXIC RESPIRATORY FAILURE, COPD Physical Exam Vital Signs: Temp Pulse Resp BP Pulse Ox 97.5 F 65 21 H 105/63 98 12/24/17 03:38 12/24/17 01:45 12/24/17 05:00 12/24/17 03:47 12/24/17 06:00 Intake & Output 12/23/17 12/24/17 12/25/17 06:59 06:59 06:59 Intake Total 1100 900 Output Total 4170 3850 Balance -3070 -2950 Weight 108 kg 100.7 kg General appearance: PRESENT: no acute distress, disheveled, obese Head exam: PRESENT: atraumatic, normocephalic Eye exam: PRESENT: conjunctiva pale, EOMI. ABSENT: nystagmus, scleral icterus Mouth exam: PRESENT: moist, neck supple, tongue midline Neck exam: ABSENT: carotid bruit, JVD, lymphadenopathy, thyromegaly, tracheal deviation, tracheostomy Respiratory exam: PRESENT: decreased breath sounds, prolonged expiratory phas, rhonchi, unlabored, wheezes. ABSENT: rales, retraction, stridor Cardiovascular exam: PRESENT: RRR, +S1, +S2 Pulses: PRESENT: normal radial pulses GI/Abdominal exam: PRESENT: soft. ABSENT: tenderness Extremities exam: ABSENT: calf tenderness, clubbing, joint swelling Musculoskeletal exam: ABSENT: deformity, dislocation Neurological exam: PRESENT: awake Skin exam: PRESENT: dry, warm Results Laboratory Results: 12/24/17 04:05 12/24/17 04:05 12/24/17 12/24/17 04:05 04:05 WBC 5.4 RBC 6.16 H Hgb 13.6 Hct 44.0 MCV 71 L MCH 22.1 L MCHC 31.0 L RDW 17.5 H Plt Count 176 Seg Neutrophils % 84.9 H Lymphocytes % 5.2 L Monocytes % 9.6 Eosinophils % 0.0 Basophils % 0.3 Absolute Neutrophils 4.6 Absolute Lymphocytes 0.3 L Absolute Monocytes 0.5 Absolute Eosinophils 0.0 Absolute Basophils 0.0 Sodium 138.6 Potassium 4.8 Chloride 99 Carbon Dioxide 33 H Anion Gap 7 BUN 36 H Creatinine 1.12 Est GFR ( Amer) > 60 Est GFR (Non-Af Amer) > 60 Glucose 113 H Calcium 9.4 Phosphorus 4.7 H 12/18/17 12/18/17 12/18/17 04:05 10:44 10:44 Creatine Kinase 80 CK-MB (CK-2) 2.22 Troponin I 0.058 0.038 12/18/17 12/22/17 12/22/17 16:08 16:00 18:09 Creatine Kinase 47 L CK-MB (CK-2) 1.86 Troponin I 0.036 0.019 12/22/17 12/22/17 12/23/17 22:22 22:22 04:45 Creatine Kinase 50 L 44 L CK-MB (CK-2) 1.60 Troponin I 0.015 12/23/17 04:45 Creatine Kinase CK-MB (CK-2) 1.43 Troponin I 0.016 Impressions: Chest/Abdomen CTA 12/17/17 22:49 IMPRESSION:No evidence of pulmonary embolus Dependent atelectasis in the lower lobes and posterior aspects of the upper lobes bilaterally. Small amount of associated infiltrate in the lung bases cannot be entirely excluded on the basis of this exam Chest X-Ray 12/23/17 06:00 IMPRESSION: No significant change. Assessment & Plan - Diagnosis (1) Acute on chronic respiratory failure with hypoxia and hypercapnia Is this a current diagnosis for this admission?: Yes Plan: continue to improved (2) Atrial fibrillation Qualifiers: Atrial fibrillation type: paroxysmal Qualified Code(s): I48.0 - Paroxysmal atrial fibrillation Is this a current diagnosis for this admission?: Yes Plan: Stable ventricular response (3) COPD (chronic obstructive pulmonary disease) Is this a current diagnosis for this admission?: Yes Plan: Yudelka + laba +long acting muscarinic agent (4) Obesity Is this a current diagnosis for this admission?: Yes (5) Obstructive sleep apnea Is this a current diagnosis for this admission?: Yes Plan: We will need to wear BiPAP whenever patient is asleep
== END 2017-12-24 12:00 | disposition home or self-care (01) | DRG 208 ==
LOC: ER 20:57 → EH 23:44 → ICU 12-18 01:25
PROVIDERS: ADMIT Internal Medicine; ATTEND Internal Medicine
PROC: 5A1945Z Respiratory Ventilation, 24-96 Consecutive Hours (ICD-10-PCS; principal; 2017-12-17)
PROC: 0BH17EZ Insertion of Endotracheal Airway into Trachea, Via Natural or Artificial Opening (ICD-10-PCS; 2017-12-17)
PROC: 3E0F73Z Introduction of Anti-inflammatory into Respiratory Tract, Via Natural or Artificial Opening (ICD-10-PCS; 2017-12-17)
PROC: 5A09457 Assistance with Respiratory Ventilation, 24-96 Consecutive Hours, Continuous Positive Airway Pressure (ICD-10-PCS; 2017-12-20)
DX: J96.21 Acute and chronic respiratory failure with hypoxia (principal); J44.1 Chronic obstructive pulmonary disease with (acute) exacerbation; N17.9 Acute kidney failure, unspecified; G47.33 Obstructive sleep apnea (adult) (pediatric); K59.00 Constipation, unspecified; I48.0 Paroxysmal atrial fibrillation; M54.5 Low back pain; I11.0 Hypertensive heart disease with heart failure; I50.9 Heart failure, unspecified; E78.00 Pure hypercholesterolemia, unspecified; K21.9 Gastro-esophageal reflux disease without esophagitis; J96.22 Acute and chronic respiratory failure with hypercapnia; I25.10 Atherosclerotic heart disease of native coronary artery without angina pectoris; E86.0 Dehydration; E66.9 Obesity, unspecified; Z68.30 Body mass index [BMI] 30.0-30.9, adult; Z78.1 Physical restraint status; I25.2 Old myocardial infarction; Z79.82 Long term (current) use of aspirin; Z79.52 Long term (current) use of systemic steroids; Z79.899 Other long term (current) drug therapy; Z79.891 Long term (current) use of opiate analgesic; Z90.49 Acquired absence of other specified parts of digestive tract; Z87.891 Personal history of nicotine dependence; Z79.01 Long term (current) use of anticoagulants
CPT/HCPCS: 36415; 71045; 71275; 80048; 80053; 81001; 82550; 82553; 82803; 83735; 84100; 84478; 84484; 85025; 85610; 85730; 87040; 87070; 87205; 93005; 93010; 94002; 94003; 94640; 94660; 94667; 94668; 94799; 96365; 96366; 96375; 99291; G8978-GP; G8979-GP; J1956; J2270; J2405; J2704; J2920; J2930; J3010; J3475; J3490; J7512; J7620; S0164

== ENCOUNTER 2018-02-09 18:25 | Emergency (ER) | payer MEDICARE, OTHER ==
[2018-02-09] MEDS ORDERED: LIDOCAINE 2% URO-JET 5 ML KIT MM ONE (19:01)
[2018-02-09] MEDS ORDERED: COCAINE HCL 4% TOPICAL SOLN 4 ML TP ONE (19:01)
[2018-02-09] MEDS ORDERED: LORAZEPAM 0.5 MG TABLET PO ONE (19:02)
--- NOTE | 2018-02-09 19:07 | ER Document Report ---
ED ENT - General Chief Complaint: Nose Bleed Stated Complaint: NOSE BLEED Time Seen by Provider: 02/09/18 18:58 Mode of Arrival: Ambulatory Information source: Patient Notes: Chief complaint: Nosebleed History of complain:( obtained from----patient) 72 years old male who is taking Eliquis, aspirin 325 mg daily presents today nosebleed from the left nostril about 3 hours prior to arrival. Spontaneous. No pain. No running nose fever chills or other constitutional strength symptoms prior to that. Onset: Sudden Duration: Just prior to arrival Severity: Mild to moderate the bleeding has subsided Quality: As above Context: As above Exacerbating factor and relieving factors: As above REVIEW OF SYSTEMS: CONSTITUTIONAL : Denies fever, chills, or sweats. Denies recent illness. EENT: Denies eye, ear, throat, or mouth pain or symptoms. Denies nasal or sinus congestion or discharge. Denies throat, tongue, or mouth swelling or difficulty swallowing. CARDIOVASCULAR: Denies chest pain. Denies palpitations or racing or irregular heart beat. Denies ankle edema. RESPIRATORY: Denies cough, cold, or chest congestion. Denies shortness of breath, difficulty breathing, or wheezing. GASTROINTESTINAL: Denies distention. Denies nausea, vomiting, or diarrhea. Denies blood in vomitus, stools, or per rectum. Denies black, tarry stools. Denies constipation. GENITOURINARY: Denies difficulty urinating, painful urination, burning, frequency, blood in urine, or discharge. FEMALE GENITOURINARY: Denies vaginal bleeding, heavy or abnormal periods, irregular periods. Denies vaginal discharge or odor. MUSCULOSKELETAL: Denies back or neck pain or stiffness. Denies joint pain or swelling. SKIN: Denies rash, lesions or sores. HEMATOLOGIC : Denies easy bruising or bleeding. LYMPHATIC: Denies swollen, enlarged glands. NEUROLOGICAL: Denies confusion or altered mental status. Denies passing out or loss of consciousness. Denies dizziness or lightheadedness. Denies headache. Denies weakness or paralysis or loss of use of either side. Denies problems with gait or speech. Denies sensory loss, numbness, or tingling. Denies seizures. PSYCHIATRIC: Denies anxiety or stress. Denies depression, suicidal ideation, or homicidal ideation. ALL OTHER SYSTEMS REVIEWED AND NEGATIVE. PHYSICAL EXAMINATION: GENERAL: Well-appearing, well-nourished and in no acute distress. HEAD: Atraumatic, normocephalic. EYES: Pupils equal round and reactive to light, extraocular movements intact, conjunctiva are normal. ENT: Nares patent, oropharynx clear without exudates. Moist mucous membranes. Left nostril-fresh blood noted. No obvious trauma is noted NECK: Normal range of motion, supple without lymphadenopathy LUNGS: Breath sounds clear to auscultation bilaterally and equal. No wheezes rales or rhonchi. HEART: Regular rate and rhythm without murmurs ABDOMEN: Soft, nontender, nondistended abdomen. No guarding, no rebound. No masses appreciated. Examination of genitals-deferred Musculoskeletal: Normal range of motion, no pitting or edema. No cyanosis. NEUROLOGICAL: Cranial nerves grossly intact. Normal speech, normal gait. Normal sensory, motor exams PSYCH: Normal mood, normal affect. SKIN: Warm, Dry, normal turgor, no rashes or lesions noted. Dictation was performed using [employer] voice recognition software TRAVEL OUTSIDE OF THE [place] IN LAST 30 DAYS: No - HPI Notes: Dictated - Related Data Allergies/Adverse Reactions: No Known Allergies Allergy (Verified 02/09/18 18:27) Past Medical History - Social History Smoking Status: Never Smoker Chew tobacco use (# tins/day): No Frequency of alcohol use: None Drug Abuse: None Lives with: Family Family History: Reviewed & Not Pertinent Patient has suicidal ideation: No Patient has homicidal ideation: No - Past Medical History Cardiac Medical History: Reports: Hx Atrial Fibrillation, Hx Congestive Heart Failure, Hx Coronary Artery Disease, Hx Heart Attack, Hx Hypercholesterolemia Pulmonary Medical History: Reports: Hx COPD Renal/ Medical History: Reports: Hx Renal Insufficiency - Running kidney disease. Denies: Hx Peritoneal Dialysis GI Medical History: Reports: Hx Gastroesophageal Reflux Disease Past Surgical History: Reports: Hx Appendectomy, Hx Cardiac Surgery - 4 stents, Hx Cholecystectomy, Hx Genitourinary Surgery - Urethral stricture laser and dilatation in the past, Hx Orthopedic Surgery - rt hip Review of Systems - Review of Systems Notes: Dictated Physical Exam - Vital signs Vitals: Temp Pulse Resp BP Pulse Ox 98.6 F 68 18 150/70 H 92 02/09/18 18:29 02/09/18 18:29 02/09/18 18:29 02/09/18 18:29 02/09/18 18:29 - Notes Notes: Dictated Course - Re-evaluation Re-evalutation: 02/09/18 19:07 Dictated - Vital Signs Vital signs: Temp Pulse Resp BP Pulse Ox 98.6 F 68 18 150/70 H 92 02/09/18 18:29 02/09/18 18:29 02/09/18 18:29 02/09/18 18:29 02/09/18 18:29 Procedures - Additional Procedures Epistaxis Time performed: 19:15 Notes: 02/09/18 19:27 Left nostril bleed was stopped by inserting nasal tampon, and inflating with air. Also used Urojet, cocaine to stop the bleeding. Procedure was done without any complication. Discharge - Discharge Clinical Impression: Epistaxis Condition: Fair Disposition: HOME, SELF-CARE Instructions: Nosebleed Instructions ([facility]) Additional Instructions: Nasal tampon removal in 24 hours.
[2018-02-09 19:39] VITALS: BP 111/73
== END 2018-02-09 19:39 | disposition home or self-care (01) ==
LOC: ER 18:25
DX: R04.0 Epistaxis (principal); I25.10 Atherosclerotic heart disease of native coronary artery without angina pectoris; J44.9 Chronic obstructive pulmonary disease, unspecified; I48.91 Unspecified atrial fibrillation; Z79.01 Long term (current) use of anticoagulants; Z79.82 Long term (current) use of aspirin; Z95.5 Presence of coronary angioplasty implant and graft
CPT/HCPCS: 99283; 30901; J3490; A9270 ×2

== ENCOUNTER 2018-02-10 08:21 | Emergency (ER) | payer MEDICARE, OTHER ==
--- NOTE | 2018-02-10 09:20 | ER Document Report ---
ED ENT - General Chief Complaint: Nose Bleed Stated Complaint: REMOVE NOSE PACKING Time Seen by Provider: 02/10/18 09:02 TRAVEL OUTSIDE OF THE [place] IN LAST 30 DAYS: No - HPI Notes: Patient is a 72-year-old male that presents to the emergency department for chief complaint of nasal packing removal. Patient was seen yesterday and had a left Rhino Rocket placed for epistaxis. He is currently taking Eliquis but has not taken his dose yet today. Patient states he is on the Eliquis for history of atrial fibrillation. Patient was told to be seen in 1-2 days for nasal packing removal. He came in today to get the packing removed. He states he is still feeling some minimal dripping of blood down the back of his throat. He states that occasionally there will be a drip from the anterior aspect of the nasal packing. He states it is mildly uncomfortable. Past Medical History: Atrial fibrillation Past Surgical History: Pacemaker Social History: Denies drugs alcohol and tobacco Family History: Reviewed and noncontributory for presenting illness Allergies: Reviewed, see documented allergy list. REVIEW OF SYSTEMS: CONSTITUTIONAL : No fever No chills No diaphoresis No recent illness EENT: Epistaxis No vision changes No congestion No sore throat CARDIOVASCULAR: No chest pain No palpitations RESPIRATORY: No shortness of breath No cough No difficulty breathing GASTROINTESTINAL: No abdominal pain No nausea No vomiting No diarrhea GENITOURINARY: No dysuria No hematuria No difficulty urinating MUSCULOSKELETAL: No back pain No leg pain No arm pain SKIN: No rashes No lesions LYMPHATIC: No swollen, enlarged glands. NEUROLOGICAL: No lightheadedness No headache No weakness No paresthesias PSYCHIATRIC: No anxiety No depression PHYSICAL EXAMINATION: Vital signs reviewed, nursing noted reviewed. GENERAL: Well-appearing, well-nourished and in no acute distress. HEAD: Atraumatic, normocephalic. EYES: Eyes appear normal, extraocular movements intact, sclera anicteric, conjunctiva are normal. ENT: Left nares Rhino Rocket saturated with bright red blood, moist. oropharynx clear without exudates. Moist mucous membranes. NECK: Normal range of motion, supple without lymphadenopathy LUNGS: Breath sounds clear to auscultation bilaterally and equal. No wheezes rales or rhonchi. HEART: Regular rate and rhythm without murmurs ABDOMEN: Soft, nontender, normoactive bowel sounds. No rebound, guarding, or rigidity. No masses appreciated. EXTREMITIES: Nontender, good range of motion, no pitting or edema. NEUROLOGICAL: No focal neurological deficits. Moves all extremities spontaneously Motor and sensory grossly intact on exam. PSYCH: Normal mood, normal affect. SKIN: Warm, Dry, normal turgor, no rashes or lesions noted on exposed skin - Related Data Allergies/Adverse Reactions: No Known Allergies Allergy (Verified 02/10/18 08:22) Past Medical History - Social History Smoking Status: Never Smoker Family History: Reviewed & Not Pertinent - Past Medical History Cardiac Medical History: Reports: Hx Atrial Fibrillation, Hx Congestive Heart Failure, Hx Coronary Artery Disease, Hx Heart Attack, Hx Hypercholesterolemia Pulmonary Medical History: Reports: Hx COPD Renal/ Medical History: Reports: Hx Renal Insufficiency - Running kidney disease. Denies: Hx Peritoneal Dialysis GI Medical History: Reports: Hx Gastroesophageal Reflux Disease Past Surgical History: Reports: Hx Appendectomy, Hx Cardiac Surgery - 4 stents, Hx Cholecystectomy, Hx Genitourinary Surgery - Urethral stricture laser and dilatation in the past, Hx Orthopedic Surgery - rt hip Physical Exam - Vital signs Vitals: Temp Pulse Resp BP Pulse Ox 98.0 F 91 20 165/85 H 93 02/10/18 08:26 02/10/18 08:26 02/10/18 08:26 02/10/18 08:26 02/10/18 08:26 Course - Re-evaluation Re-evalutation: 02/10/18 09:23 Vitals reviewed. Nursing notes reviewed. Patient has some minimal bleeding that is ongoing. I am concerned if I remove the Rhino Rocket today that his bleeding will become more rapid and require replacement of the Rhino Rocket. I have arranged for patient to have an appointment with Dr. Reed, ENT, at 9 AM tomorrow morning for further evaluation of his epistaxis. Patient is in agreement with this plan and stable at discharge. - Vital Signs Vital signs: Temp Pulse Resp BP Pulse Ox 98.0 F 91 20 165/85 H 93 02/10/18 08:26 02/10/18 08:26 02/10/18 08:26 02/10/18 08:26 02/10/18 08:26 Discharge - Discharge Clinical Impression: Epistaxis Condition: Stable Disposition: HOME, SELF-CARE Additional Instructions: Please return to the emergency department if you have any worsening, or concern of your symptoms. Please return to the emergency department if you develop chest pain, difficulty breathing, severe abdominal pain, or ongoing vomiting. Please follow-up with your primary care physician in 2-3 days and any other recommended physicians. If prescribed, take all medications as directed. If you have any questions or concerns do not hesitate to return the emergency department for evaluation. You have an appointment at 9 AM tomorrow morning (02/10/18) with Dr. Reed, ENT for possible Rhino Rocket removal. Referrals: [facility] [Provider Group] - Follow up tomorrow (You have an appointment at 9 AM tomorrow morning (02/10/18) with Dr. Reed)
[2018-02-10 09:38] VITALS: BP 129/77
== END 2018-02-10 09:21 | disposition home or self-care (01) ==
LOC: ER 08:21
DX: R04.0 Epistaxis (principal); I48.91 Unspecified atrial fibrillation; I50.9 Heart failure, unspecified; I25.10 Atherosclerotic heart disease of native coronary artery without angina pectoris; I25.2 Old myocardial infarction; E78.00 Pure hypercholesterolemia, unspecified
CPT/HCPCS: 99283